=== PATIENT | male | born 1965 | race Caucasian/White ===

== ENCOUNTER 2022-12-17 05:59 | Outpatient (OUT) | payer BC, SELFPAY ==
[2022-12-17 07:08] LABS: Basophils Percent Auto 0.7 % (0.2-2.0); Eosinophils Absolute Auto 0.2 10^3/uL (0.0-0.7); Eosinophils Percent Auto 2.5 % (0.9-7.0); Hematocrit 45.5 % (42.0-54.0); Immature Granulocytes Abs Auto 0.02 10^3/uL (0.00-0.03); Immature Granulocytes Pct Auto 0.3 % (0.0-0.5); Lymphocytes Absolute Auto 2.5 10^3/uL (1.2-3.8); Lymphocytes Percent Auto 41.9 % (20.5-60.0); Mean Platelet Volume 9.8 fL (9.5-13.5); Monocytes Absolute Auto 0.6 10^3/uL (0.3-0.8); Monocytes Percent Auto 9.6 % (1.7-12.0); Neutrophils Absolute Auto 2.7 10^3/uL (1.4-6.5); Platelet Count 276 10^3/uL (150-450); Red Blood Count 5.35 10^6/uL (4.70-6.10); Red Cell Distribution Width 14.4 % (11.0-15.0); White Blood Count 6.1 10^3/uL (4.0-11.0)
[2022-12-17 07:20] LABS: Alanine Aminotransferase 33 U/L (16-63); Albumin Globulin Ratio 1.1; Alkaline Phosphatase 99 U/L (46-116); Anion Gap 11.3; Aspartate Amino Transferase 18 U/L (15-37); BUN Creatinine Ratio 13.2; Bilirubin Total 0.6 mg/dL (0.2-1.0); Calcium 9.4 mg/dL (8.5-10.1); Chloride 105 mmol/L (98-107); Estimated GFR (African America >60 (>=60); Estimated GFR (Non-African Ame 58 (>=60); Globulin 3.5 g/dL; Glucose 110 mg/dL (74-106); Potassium 4.3 mmol/L (3.5-5.1); Sodium 140 mmol/L (136-145); Total Protein 7.5 g/dL (6.4-8.2)
[2022-12-17 07:28] LABS: Chol HDL Ratio 4.2; Cholesterol 173 mg/dL (<=200); HDL Cholesterol 41 mg/dL (40-60); Thyroid Stimulating Hormone 1.913 uIU/mL (0.358-3.740); Triglycerides 227 mg/dL (<=150); VLDL CHOLESTEROL 45.4 mg/dL
== END 2022-12-17 06:00 | disposition home or self-care (01) ==
LOC: LAB 06:03
DX: E78.5 Hyperlipidemia, unspecified (principal); Z12.5 Encounter for screening for malignant neoplasm of prostate
CPT/HCPCS: 36415; 80053; 80061; 84443; 85025; G0103

== ENCOUNTER 2023-01-12 14:15 | Outpatient (OUT) | payer BC, SELFPAY ==
--- NOTE | 2023-01-12 14:26 | ECG_ITS ---
The [facility] Test Date: 2023-01-12 Pat Name: PERCY PARK Department: Room: - Gender: Male [employer]aking [employer] Worker: : 1965 Requested By: RUBY MABRY Order Number: [id number] Reading MD: ANN MARIE PETERS Measurements Intervals [place] Rate: 74 P: 62 HI: 168 QRS: 35 QRSD: 100 T: 48 QT: 367 QTc: 409 Interpretive Statements SINUS RHYTHM No previous ECG available for comparison Electronically Signed On 01-13-2023 7:14:12 EDT by ANN MARIE PETERS
== END 2023-01-12 14:16 | disposition home or self-care (01) ==
DX: Z01.810 Encounter for preprocedural cardiovascular examination (principal); M19.072 Primary osteoarthritis, left ankle and foot; Q66.89 Other specified congenital deformities of feet; I10 Essential (primary) hypertension
CPT/HCPCS: 80048; 93005

== ENCOUNTER 2023-01-29 06:25 | Day surgery (SDC) | payer BC, SELFPAY ==
[2023-01-12 14:58] VITALS: BP 116/80; PULSE 77; RESP 18; TEMP 36.6; O2SAT 97; BMI 35.1
[2023-01-29] VITALS (15 sets, daily range): BP systolic 108–132; BP diastolic 70–90; PULSE 71–94; RESP 8–20; TEMP 35.9–36.2; O2SAT 90–99; BMI 35.1
--- NOTE | 2023-01-29 | XR_ITS ---
The [address] [address] Patient Name: PERCY PARK MRN: [id number] date: 1965 Sex: M Assigned Patient Location: [facility] Current Patient Location: Accession/Order Number: [id number] Exam Date: 01/29/2023 08:40 Report Date: 01/29/2023 12:37 At the request of: RUBY MABRY Procedure: XR ankle LT min 3V PROCEDURE: XR ankle LT min 3V HISTORY: LEFT SUBTALAR JOINT FUSION W/BONE REMOVAL COMPARISON: XR ankle left 07/09/2022 FINDINGS: BONES:Multiple intraoperative spot fluoroscopic images demonstrate talocalcaneal fusion via 3 lag screws. Bone harvesting from anterior distal tibia. SOFT TISSUES:Expected intraoperative findings. EFFUSION:None visible. OTHER: Negative. XR/XR ankle LT min 3V IMPRESSION: 1. Subtalar fusion. Electronically authenticated by: AVI THOMPSON Date: 01/29/2023 12:37
[2023-01-29 06:34] LABS: Basophils Percent Auto 0.6 % (0.2-2.0); Eosinophils Absolute Auto 0.1 10^3/uL (0.0-0.7); Eosinophils Percent Auto 1.7 % (0.9-7.0); Hematocrit 47.5 % (42.0-54.0); Hemoglobin 15.8 g/dL (14.0-18.0); Immature Granulocytes Abs Auto 0.01 10^3/uL (0.00-0.03); Immature Granulocytes Pct Auto 0.1 % (0.0-0.5); Lymphocytes Absolute Auto 2.7 10^3/uL (1.2-3.8); Lymphocytes Percent Auto 38.7 % (20.5-60.0); Mean Corpuscular HGB Conc 33.3 g/dL (29.9-35.2); Mean Corpuscular Hemoglobin 28.1 pg (25.9-34.0); Mean Corpuscular Volume 84.5 fL (80.0-94.0); Mean Platelet Volume 9.5 fL (9.5-13.5); Monocytes Absolute Auto 0.7 10^3/uL (0.3-0.8); Monocytes Percent Auto 9.4 % (1.7-12.0); Neutrophils Absolute Auto 3.4 10^3/uL (1.4-6.5); Neutrophils Percent Auto 49.5 % (43.0-75.0); Platelet Count 288 10^3/uL (150-450); Red Blood Count 5.62 10^6/uL (4.70-6.10); Red Cell Distribution Width 14.2 % (11.0-15.0); White Blood Count 6.9 10^3/uL (4.0-11.0)
[2023-01-29] MEDS: LACTATED RINGER'S SOLUTION 1,000 ML 50 ML IV ×2 (06:56→08:35)
[2023-01-29 06:58] LABS: Glucometer 98 mg/dL (74-106)
[2023-01-29] MEDS: CEFAZOLIN SODIUM/DEXTROSE,ISO 2 GM/50 ML PIGGYBACK IV (07:48)
[2023-01-29] MEDS: THROMBI-GEL SIZE 40 HEMOSTAT 1 EACH TOPICAL (08:48)
--- NOTE | 2023-01-29 10:01 | XR_ITS ---
The [address] [address] Patient Name: PERCY PARK MRN: [id number] date: 1965 Sex: M Assigned Patient Location: [facility] Current Patient Location: [facility] Accession/Order Number: [id number] Exam Date: 01/29/2023 10:40 Report Date: 01/29/2023 12:41 At the request of: SEAMUS WONG Procedure: XR ankle LT min 3V PROCEDURE: XR ankle LT min 3V HISTORY: postop xr pacu. please include calc axial COMPARISON: 01/29/2023 XR ankle left intraoperative images FINDINGS: BONES:Mechanical fusion of the talocalcaneal joint via 3 lag screws; no appreciable hardware fracture or bone fracture. Bone harvesting from distal tibia. SOFT TISSUES:Small amount of soft tissue swelling and subcutaneous air; not unexpected following surgery. Images were obtained to cast material. EFFUSION:None visible. OTHER: Negative. XR/XR ankle LT min 3V IMPRESSION: 1. Talocalcaneal fusion. Stable appearance compared to intraoperative images. Electronically authenticated by: AVI THOMPSON Date: 01/29/2023 12:41
--- NOTE | 2023-01-29 10:09 | PM.ORONB ---
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 Arthrosis and chronic inflammatory tissue noted within the subtalar joint. Middle facet coalition was also noted. Bone quality was within normal limits given patient's gender and age. PROCEDURE IN DETAIL: Patient was identified in pre op and consent was reviewed. Correct side and site were identified and marked. Pre-op antibiotics were started. Patient was brought to OR suite and place on table in a supine position. General anesthesia was administered. Tourniquet applied. Operative extremity was prepped and draped in usual sterile fashion. Formal time-out was performed and the foot/ankle were exsanguinated and tourniquet inflated. A longitudinal incision over the medial aspect of the calf two finger breadths posterior to the posterior aspect of tibia was performed. Combination sharp and blunt dissection with all bleeders being coagulated gained access to the gastrocnemius aponeurosis. Once the aponeurosis was isolated a speculum was inserted from the medial to lateral position just superficial to the aponeurosis. The speculum allowed full visualization of the aponeurosis and the foot was held in maximal dorsiflexed position. A fifteen blade was used to transversely incise the gastrocnemius fascia to two separate location (one proximal and one distal) followed by release of the soleus fascia. 10 degrees of ankle joint dorsiflexion was obtained. The area was flushed with copious sterile saline and skin was closed in layers. A longitudinal incision over the medial aspect of the gastrocnemius aponeurosis was performed. Combination of sharp and blunt dissection with all bleeders being coagulated gained access to the gastrocnemius aponeurosis. Once the aponeurosis was isolated a speculum was inserted from the medial to lateral position just superficial to the aponeurosis. The speculum allowed full visualization of the aponeurosis and the foot was held in maximal dorsiflexed position. A fifteen blade was used to transversely incise the gastrocnemius aponeurosis until ten degrees of ankle joint dorsiflexion was obtained. The area was flushed with copious sterile saline and skin was closed in layers. An incision from fibular malleolus to the cuboid was undertaken. Combination of sharp and blunt dissection gained access to the sinus tarsi. All bleeders were tied off or cauterized. EDB muscle was reflected and tagged for later approximation. Sinus tarsectomy was then performed. Radius Healthermann distractor was used to access the subtalar joint which was prepped with curettes, osteotomes, rongeurs and drill with 2.0 mm drill.The posterior and the middle facet were thoroughly prepped. An accessory incision was placed over the distal tibia. Sharp and blunt dissection down to periosteum was performed. The periosteum was sharply reflected. A drill hole was created to allow access to the metaphysis. A bone harvester was then used according to the agriculture laboratory technician's standard directions to obtain cancellus autograft. 5 cc was obtained and was then mixed with 1 cc of Sparc allograft. The graft mixture was then placed into the subtalar joint. The harvest site was then irrigated and packed with Gelfoam. The periosteum was meticulously reapproximated with absorbable suture and skin was closed with nonabsorbable suture Guidewire was placed through a stab incision over the talar neck and was directed from the talar neck across the subtalar joint and into the calcaneus. Fluoroscopy confirmed proper placement. A 5.5 mm cannulated headless screw was placed accordingly. Two guide wires were placed through a 2 cm incision over posterior heel. The wires were placed from the calcaneal tuberosity into the talar body. Fluoroscopy confirmed deformity correction and proper placement of the wires. once the wires were placed in a good position 6.5 mm headless cannulated screws were placed over each wire. Guidewires were then removed and screw position was evaluated on fluoroscopy. was noted that the 5.5 mm screw was long on the axial x-ray therefore was removed and was replaced with a shorter 6.5 mm screw. Compression was noted across the fusion site. Surgical site was irrigated with copious saline. Incisions were then closed in layers and a tourniquet was dropped with a prompt hyperemic response.A dry sterile dressing consisting of Xeroform on the incisions followed by 4 x 4 gauze, ABDs, and Kerlix were applied. Multiple layers of cast padding were then applied to ensure all bony prominences were well-padded. A plaster posterior splint was then applied which was held in place by Silver wraps. Capillary refill time to all digits was evaluated and had appropriate response. Patient tolerated the procedure and anesthesia well transferred to the recovery room with vital signs stable and brisk capillary refill to digits. POSTOPERATIVE PLAN: Discharge home under family's care Post op instructions provided verbally and written prescription(s) were placed in chart NWB operative foot/ankle x_6_ wks Follow-up in 1 week Implants: Medline 6.5 mm cannulated headless screws x3 Sparc bone allograft Anesthesia: regional and General-LMA Surgeon: Alf York Employment Specialist: Moses Castillo Estimated blood loss (mL): 10 Pathology: none sent Condition: stable Disposition: PACU Preoperative Details Reason for procedure: patient is a 57-year-old male who has had progressive pain in his right foot and difficulty with uneven surfaces. Patient had reduction in frontal plane range of motion of the subtalar joint and pain on palpation the sinus tarsi as well as medial aspect of the subtalar joint. patient also had reduction in ankle joint dorsiflexion with the knee extended. 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 We discussed potential pros and cons of surgical versus nonsurgical treatment and given that the patient had not responded to nonsurgical care he was to proceed with surgical intervention involving subtalar joint fusion, bone graft and gastrocnemius recession
[2023-01-29 10:34] LABS: Glucometer 122 mg/dL (74-106)
== END 2023-01-29 12:00 | disposition home or self-care (01) ==
PROVIDERS: Anesthesiology; Visit Provider Podiatrist Foot & Ankle Surgery
PROC: (CPT 20902; principal; 2023-01-29 07:30)
DX: M19.072 Primary osteoarthritis, left ankle and foot (principal); Q66.89 Other specified congenital deformities of feet; M24.572 Contracture, left ankle; E78.5 Hyperlipidemia, unspecified; I12.9 Hypertensive chronic kidney disease with stage 1 through stage 4 chronic kidney disease, or unspecified chronic kidney disease; N18.30 Chronic kidney disease, stage 3 unspecified; R73.9 Hyperglycemia, unspecified; K21.9 Gastro-esophageal reflux disease without esophagitis; N52.9 Male erectile dysfunction, unspecified; Z79.899 Other long term (current) drug therapy
CPT/HCPCS: 20902; 27687; 28725; 36415; 64445; 73610; 76000; 76942; 82948; 85025; C1713; J2704

== ENCOUNTER 2023-02-17 09:04 | Outpatient (OUT) | payer BC, SELFPAY ==
--- NOTE | 2023-02-17 | XR_ITS ---
The [address] [address] Patient Name: PERCY PARK MRN: [id number] date: 1965 Sex: M Assigned Patient Location: [facility] Current Patient Location: [facility] Accession/Order Number: [id number] Exam Date: 02/17/2023 09:24 Report Date: 02/17/2023 15:03 At the request of: PHIL DEAL Procedure: XR foot LT min 3V EXAM: XR foot LT min 3V HISTORY: LEFT SUBTALAR JOINT FUSION COMPARISON: 01/29/2023. 08/02/2022. TECHNIQUE: 3 views left foot. FINDINGS: Recent postoperative subtalar joint fusion with 3 cannulated screws. In position without complication. Minimal postoperative edema without gas. No bone destruction. No fracture or dislocation. Minimal degenerative change of the great toe MTP joint. XR/XR foot LT min 3V IMPRESSION: Intact left subtalar joint effusion with mild residual edema. Electronically authenticated by: YARIEL BUTLER Date: 02/17/2023 15:03
== END 2023-02-17 09:05 | disposition home or self-care (01) ==
LOC: RAD 09:04
PROVIDERS: Visit Provider Physician Assistant
DX: M24.572 Contracture, left ankle (principal); Q66.89 Other specified congenital deformities of feet
CPT/HCPCS: 73610; 73630

== ENCOUNTER 2023-03-12 09:24 | Outpatient (OUT) | payer BC, SELFPAY ==
--- NOTE | 2023-03-12 | XR_ITS ---
The [address] [address] Patient Name: PERCY PARK MRN: [id number] date: 1965 Sex: M Assigned Patient Location: [facility] Current Patient Location: [facility] Accession/Order Number: [id number] Exam Date: 03/12/2023 09:10 Report Date: 03/12/2023 11:37 At the request of: PHIL DEAL Procedure: XR foot LT min 3V STUDY: XR foot LT min 3V, [id number] HISTORY: LEFT FOOT PAIN COMPARISON: Left foot x-rays 02/17/2023. FINDINGS/IMPRESSION: No acute fracture, dislocation, or suspicious osseous lesion. Subtalar joint fusion hardware is intact and similar alignment on the lateral view. Small plantar calcaneal spur. There is pes cavus. No new or worsening osseous abnormality. Electronically authenticated by: SALVADOR BOONE Date: 03/12/2023 11:37
== END 2023-03-12 09:25 | disposition home or self-care (01) ==
LOC: RAD 09:25
PROVIDERS: Visit Provider Physician Assistant
DX: Q66.89 Other specified congenital deformities of feet (principal); M77.32 Calcaneal spur, left foot; Q66.72 Congenital pes cavus, left foot; Z98.1 Arthrodesis status
CPT/HCPCS: 73630

== ENCOUNTER 2023-04-01 09:05 | Outpatient (OUT) | payer BC, SELFPAY ==
--- NOTE | 2023-04-01 | XR_ITS ---
The [address] [address] Patient Name: PRECY PARK MRN: [id number] date: 1965 Sex: M Assigned Patient Location: [facility] Current Patient Location: Accession/Order Number: [id number] Exam Date: 04/01/2023 09:07 Report Date: 04/02/2023 07:38 At the request of: RUBY MABRY Procedure: XR foot LT min 3V PROCEDURE: XR foot LT min 3V HISTORY: LEFT FOOT PAIN COMPARISON: XR foot left 03/12/2023 FINDINGS: BONES:Subtalar fusion via 3 lag screws; no appreciable hardware fracture loosening. No bone fracture or dislocation. Prior marrow harvesting from distal tibia. SOFT TISSUES:No visible soft tissue swelling. EFFUSION:None visible. OTHER: Negative. XR/XR foot LT min 3V IMPRESSION: 1. Stable surgical changes without evidence of hardware failure or change in alignment. Electronically authenticated by: AVI THOMPSON Date: 04/02/2023 07:38
== END 2023-04-01 09:06 | disposition home or self-care (01) ==
LOC: RAD 09:05
PROVIDERS: Visit Provider Podiatrist Foot & Ankle Surgery
DX: M79.672 Pain in left foot (principal)
CPT/HCPCS: 73630

== ENCOUNTER 2023-04-28 09:16 | Outpatient (OUT) | payer BC, SELFPAY ==
--- NOTE | 2023-04-28 | XR_ITS ---
The [address] [address] Patient Name: PERCY PARK MRN: [id number] date: 1965 Sex: M Assigned Patient Location: [facility] Current Patient Location: [facility] Accession/Order Number: [id number] Exam Date: 04/28/2023 09:30 Report Date: 04/28/2023 16:08 At the request of: RUBY MABRY Procedure: XR foot LT min 3V EXAM: XR foot LT min 3V HISTORY: LEFT FOOT F/U COMPARISON: 04/01/2023. TECHNIQUE: Routine views of the XR foot LT min 3V FINDINGS/ XR/XR foot LT min 3V IMPRESSION: 1. No acute fractures. Fusion of the talocalcaneal joint without definitive osseous bridging. Maintained alignment without evidence for hardware complication. Small plantar calcaneal spur. Osteopenia, which may be secondary to disuse. 2. Unremarkable soft tissues. 3. Mild first MTP and scattered interphalangeal joint degeneration. Electronically authenticated by: CANDE BRIGHT Date: 04/28/2023 16:08
== END 2023-04-28 09:17 | disposition home or self-care (01) ==
LOC: RAD 09:17
PROVIDERS: Visit Provider Podiatrist Foot & Ankle Surgery
DX: Q66.89 Other specified congenital deformities of feet (principal); M77.32 Calcaneal spur, left foot
CPT/HCPCS: 73630

== ENCOUNTER 2023-07-29 15:30 | Outpatient (OUT) | payer BC, SELFPAY ==
--- NOTE | 2023-07-29 | XR_ITS ---
The [address] [address] Patient Name: PERCY PARK MRN: [id number] date: 1965 Sex: M Assigned Patient Location: Current Patient Location: Accession/Order Number: [id number] Exam Date: 07/29/2023 15:32 Report Date: 07/29/2023 18:22 At the request of: RUBY MABRY Procedure: XR foot LT min 3V EXAM: XR foot LT min 3V HISTORY: LEFT FOOT PAIN COMPARISON: 04/28/2023 TECHNIQUE: 3 views of left foot were obtained. FINDINGS: There is no evidence of an acute fracture or dislocation. Some degenerative changes are again seen at the first metatarsophalangeal joint and the interphalangeal joint of the great toe. Remainder the joint space of the foot are intact. Remote postsurgical changes are present with fusion of the talocalcaneus joints. Small osteophytes arise from the posterior calcaneus. XR/XR foot LT min 3V IMPRESSION: No apparent acute fracture or dislocation. Some degenerative changes are seen in the joints of the great toe. The overall appearance is unchanged. Electronically authenticated by: RUBY MONTGOMERY Date: 07/29/2023 18:22
== END 2023-07-29 15:31 | disposition home or self-care (01) ==
PROVIDERS: Visit Provider Podiatrist Foot & Ankle Surgery
DX: Q66.89 Other specified congenital deformities of feet (principal)
CPT/HCPCS: 73630

== ENCOUNTER 2023-12-16 10:04 | Emergency (ER) | payer OTHER, SELFPAY ==
[2023-12-16 10:12] VITALS: BP 127/82; PULSE 77; TEMP 36.4; O2SAT 97; BMI 33.9
--- NOTE | 2023-12-16 10:45 | CT_ITS ---
[address] [address] Patient Name: PERCY PARK MRN: [id number] date: 1965 Sex: M Assigned Patient Location: ER Current Patient Location: ER Accession/Order Number: [id number] Exam Date: 12/16/2023 10:54 Report Date: 12/16/2023 11:28 At the request of: JYOTI PANDYA Procedure: CT cervical spine wo con PROCEDURE: CT thoracic spine wo con, CT cervical spine wo con, CT lumbar spine wo con COMPARISON: None. HISTORY: fall TECHNIQUE: Axial, Coronal, and Sagittal CT images obtained without IV contrast. Dose reduction techniques were achieved by using automated exposure control and/or adjustment of mA and/or kV according to patient size and/or use of iterative reconstruction technique. FINDINGS: PARASPINAL AREA: Normal with no visible mass. DISCS: Moderate narrowing L5-S1 with endplate sclerosis. Mild right L5-S1 foraminal stenosis BONES: Normal alignment of the cervical thoracic and lumbar vertebral bodies. Mild anterior wedging of the T7, T8, T9, T12 and L4 vertebral bodies. Mild degenerative spondylosis and facet osteoarthropathy OTHER: Negative. CT/CT cervical spine wo con IMPRESSION: Mild anterior wedging of the T7, T8, T9, T12 and L4 vertebral bodies, age-indeterminate compression fractures No spondylolisthesis Mild degenerative changes most significant at L5-S1 Electronically authenticated by: LUIZA PELLETIER Date: 12/16/2023 11:28
--- NOTE | 2023-12-16 10:45 | CT_ITS ---
[address] [address] Patient Name: PERCY PARK MRN: [id number] date: 1965 Sex: M Assigned Patient Location: ER Current Patient Location: ER Accession/Order Number: [id number] Exam Date: 12/16/2023 10:54 Report Date: 12/16/2023 11:28 At the request of: JYOTI PANDYA Procedure: CT lumbar spine wo con PROCEDURE: CT thoracic spine wo con, CT cervical spine wo con, CT lumbar spine wo con COMPARISON: None. HISTORY: fall TECHNIQUE: Axial, Coronal, and Sagittal CT images obtained without IV contrast. Dose reduction techniques were achieved by using automated exposure control and/or adjustment of mA and/or kV according to patient size and/or use of iterative reconstruction technique. FINDINGS: PARASPINAL AREA: Normal with no visible mass. DISCS: Moderate narrowing L5-S1 with endplate sclerosis. Mild right L5-S1 foraminal stenosis BONES: Normal alignment of the cervical thoracic and lumbar vertebral bodies. Mild anterior wedging of the T7, T8, T9, T12 and L4 vertebral bodies. Mild degenerative spondylosis and facet osteoarthropathy OTHER: Negative. CT/CT lumbar spine wo con IMPRESSION: Mild anterior wedging of the T7, T8, T9, T12 and L4 vertebral bodies, age-indeterminate compression fractures No spondylolisthesis Mild degenerative changes most significant at L5-S1 Electronically authenticated by: LUIZA PELLETIER Date: 12/16/2023 11:28
--- NOTE | 2023-12-16 10:45 | CT_ITS ---
[address] [address] Patient Name: PERCY PARK MRN: [id number] date: 1965 Sex: M Assigned Patient Location: ER Current Patient Location: ER Accession/Order Number: [id number] Exam Date: 12/16/2023 10:54 Report Date: 12/16/2023 11:28 At the request of: JYOTI PANDYA Procedure: CT thoracic spine wo con PROCEDURE: CT thoracic spine wo con, CT cervical spine wo con, CT lumbar spine wo con COMPARISON: None. HISTORY: fall TECHNIQUE: Axial, Coronal, and Sagittal CT images obtained without IV contrast. Dose reduction techniques were achieved by using automated exposure control and/or adjustment of mA and/or kV according to patient size and/or use of iterative reconstruction technique. FINDINGS: PARASPINAL AREA: Normal with no visible mass. DISCS: Moderate narrowing L5-S1 with endplate sclerosis. Mild right L5-S1 foraminal stenosis BONES: Normal alignment of the cervical thoracic and lumbar vertebral bodies. Mild anterior wedging of the T7, T8, T9, T12 and L4 vertebral bodies. Mild degenerative spondylosis and facet osteoarthropathy OTHER: Negative. CT/CT thoracic spine wo con IMPRESSION: Mild anterior wedging of the T7, T8, T9, T12 and L4 vertebral bodies, age-indeterminate compression fractures No spondylolisthesis Mild degenerative changes most significant at L5-S1 Electronically authenticated by: LUIZA PELLETIER Date: 12/16/2023 11:28
--- NOTE | 2023-12-16 11:06 | PC.NURSE ---
pt back from imaging at this time via wheelchair. pt aware of pending results and denies current needs.
[2023-12-16 12:21] VITALS: PULSE 74; O2SAT 96
--- NOTE | 2023-12-16 12:32 | ED_ITS ---
HPI HPI - Back Pain/Injury General Chief Complaint: Back Pain/Injury Stated Complaint: FALL Time Seen by Provider: 12/16/23 10:15 Source: patient Mode of arrival: walk-in Limitations: no limitations History of Present Illness HPI Narrative: Patient presents to ED complaining of back pain. 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 He complains of thoracic spine pain and lumbar spine pain. Mild lower cervical spine tenderness as well. no loss of consciousness neurologically intact no weakness numbness or tingling in the extremities. He has been ambulatory in the ED and he said his pain is mild. Declined any pain medication at this time. Related Data Home Medications ?Medication ?Instructions ?Recorded ?Confirmed bupropion HCl 200 mg tablet,12 hr 200 mg PO QDAY 01/12/23 01/29/23 sustained-release levocetirizine 5 mg tablet 5 mg PO QDAY 01/12/23 01/12/23 lisinopril 20 mg tablet 20 mg PO QDAY 01/12/23 01/29/23 lorazepam 1 mg tablet 1 mg PO Q12H PRN anxiety 01/12/23 01/12/23 montelukast 10 mg tablet 10 mg PO QPM 01/12/23 01/29/23 pantoprazole 40 mg tablet,delayed 40 mg PO Q12H 01/12/23 01/29/23 release Previous Rx's ?Medication ?Instructions ?Recorded alendronate 70 mg tablet (Fosamax) 70 mg PO QWEEK 12 weeks #12 tabs 01/29/23 aspirin 81 mg tablet,delayed 81 mg PO BID PRN clot prevention 01/29/23 release (Adult Low Dose Aspirin) 30 days #60 tabs cefadroxil 500 mg capsule 500 mg PO BID 2 weeks #28 caps 01/29/23 cholecalciferol (vitamin D3) 125 125 mcg PO DAILY 90 days #90 caps 01/29/23 mcg (5,000 unit) capsule ondansetron 4 mg disintegrating 4 mg PO Q8H PRN nausea and 01/29/23 tablet vomiting 5 days #15 tabs oxycodone-acetaminophen 5 mg-325 1 tab PO Q6H PRN pain (scale score 01/29/23 mg tablet (Percocet) 7-10) 7 days #28 tabs sennosides 8.6 mg tablet (Senna 8.6 mg PO DAILY PRN constipation 7 01/29/23 Laxative) days #7 tabs tizanidine 2 mg capsule 2 mg PO TID PRN muscle spasticity 01/29/23 7 days #21 caps Allergies Allergy/AdvReac Type Severity Reaction Status Date / Time No Known Drug Allergies Allergy Verified 01/12/23 14:37 Opioid HPI Opioid Management Most Recent Opioid Data: Last Pain Scale 7 12/16/23 10:19 Review of Systems ROS0 Status of ROS 10 or more systems reviewed and unremark able except as noted in history and below [facility] Medical History (Updated 12/16/23 @ 12:20 by Shelia Henley DO) Depression ?F32.A - Depression, unspecified (ICD-10) Anxiety ?F41.9 - Anxiety disorder, unspecified (ICD-10) COVID-19 ?U07.1 - COVID-19 (ICD-10) Seasonal allergies ?J30.2 - Other seasonal allergic rhinitis (ICD-10) GERD (gastroesophageal reflux disease) ?K21.9 - Gastro-esophageal reflux disease without esophagitis (ICD-10) Hypertension ?I10 - Essential (primary) hypertension (ICD-10) Equinus contracture of ankle ?M24.573 - Contracture, unspecified ankle (ICD-10) 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 (ICD-10) Arthritis of foot ?M19.079 - Primary osteoarthritis, unspecified ankle and foot (ICD-10) Surgical History (Updated 01/12/23 @ 14:45 by Melisa Rosa NP) History of colonoscopy ?Z98.890 - Other specified postprocedural states (ICD-10) History of tonsillectomy ?Z90.89 - Acquired absence of other organs (ICD-10) Family History (Updated 01/12/23 @ 14:45 by Melisa Rosa NP) Other Family history of hypertension Family history of myocardial infarction Social History (Updated 01/12/23 @ 14:42 by Melisa Rosa NP) Within the past year, how often did you have a drink containing alcohol: monthly or less Smoking status: Never smoker Non-prescribed substance use: denies use 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 Respiratory: Lungs CTA, respirations non labored. 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 Tenderness to palpation in the lower cervical spine, mid thoracic spine and mildly in the lumbar spine. No severe midline tenderness. Neurologically intact, no loss of sensation no paresthesias normal pulses. Neurological: oriented x 4, LOC appropriate for age. Constitutional Vital Signs, click to edit/add: Last Vital Signs Temp 97.6 F 12/16/23 10:12 Pulse 74 12/16/23 12:21 Resp 16 12/16/23 12:21 BP 127/82 12/16/23 10:12 Pulse Ox 96 12/16/23 12:21 O2 Del Method Room Air 12/16/23 12:21 Course Vital Signs Vital signs: Vital Signs Temperature 97.6 F 12/16/23 10:12 Pulse Rate 77 12/16/23 10:12 Respiratory Rate 18 12/16/23 10:12 Blood Pressure 127/82 12/16/23 10:12 Pulse Oximetry 97 12/16/23 10:12 Oxygen Delivery Method Room Air 12/16/23 10:12 Temperature 97.6 F 12/16/23 10:12 Pulse Rate 74 12/16/23 12:21 Respiratory Rate 16 12/16/23 12:21 Blood Pressure 127/82 12/16/23 10:12 Pulse Oximetry 96 12/16/23 12:21 Oxygen Delivery Method Room Air 12/16/23 12:21 MDM - Back Pain/Injury MDM Narrative Medical decision making narrative: Patient's imaging shows thoracic and lumbar compression fractures that are age- indeterminate. 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 If the lumbar pain is significant then place him in a binder. I rechecked the patient and he said the lumbar pain is really not that bad and he has had no problems with the pain is more in the thoracic vertebrae but again still not that bad. Patient wants to return to work today. No neurological deficit. Patient is to follow-up next Thursday with Dr. Saint Clark, his information was given on the discharge instructions. Patient and family are comfortable with care plan for home. No work restrictions. Differential Diagnosis Differential diagnosis: Likely lumbar radiculopathy, strain of lumbar region, thoracic back pain and other (Fracture) Medical Records Attestation: I reviewed the patient's medical records. Imaging Data CT scan - abdomen: Radiologist's impression: ITS Impressions Cervical Spine CT 12/16/23 10:45 IMPRESSION: Mild anterior wedging of the T7, T8, T9, T12 and L4 vertebral bodies, age-indeterminate compression fractures No spondylolisthesis Mild degenerative changes most significant at L5-S1 Electronically authenticated by: LUIZA PELLETIER Date: 12/16/2023 11:[address] 12/16/23 10:45 IMPRESSION: Mild anterior wedging of the T7, T8, T9, T12 and L4 vertebral bodies, age-indeterminate compression fractures No spondylolisthesis Mild degenerative changes most significant at L5-S1 Electronically authenticated by: LUIZA PELLETIER Date: 12/16/2023 11:[address] 12/16/23 10:45 IMPRESSION: Mild anterior wedging of the T7, T8, T9, T12 and L4 vertebral bodies, age-indeterminate compression fractures No spondylolisthesis Mild degenerative changes most significant at L5-S1 Electronically authenticated by: LUIZA PELLETIER Date: 12/16/2023 11:28 Discharge Plan Discharge Stand Alone Forms: Portal Instructions Chief Complaint: Back Pain/Injury Clinical Impression: Compression fracture of thoracic vertebra, Compression fracture of lumbar vertebra Patient Disposition: Home, Self-Care Time of Disposition Decision: 12:19 Condition: Good Mode of Transportation: Private Vehicle Prescriptions / Home Meds: No Action bupropion HCl 200 mg tablet sustained-release 12 hr 200 mg PO QDAY levocetirizine 5 mg tablet 5 mg PO QDAY lorazepam 1 mg tablet 1 mg PO Q12H PRN (Reason: anxiety) montelukast 10 mg tablet 10 mg PO QPM pantoprazole 40 mg tablet,delayed release (DR/EC) 40 mg PO Q12H lisinopril 20 mg tablet 20 mg PO QDAY alendronate [Fosamax] 70 mg tablet 70 mg PO QWEEK 84 Days Qty: 12 0RF aspirin [Adult Low Dose Aspirin] 81 mg tablet,delayed release (DR/EC) 81 mg PO BID PRN (Reason: clot prevention) 30 Days Qty: 60 0RF cefadroxil 500 mg capsule 500 mg PO BID 14 Days Qty: 28 0RF oxycodone-acetaminophen [Percocet] 5-325 mg tablet 1 tab PO Q6H PRN (Reason: pain (scale score 7-10)) 7 Days Qty: 28 0RF ondansetron 4 mg tablet,disintegrating 4 mg PO Q8H PRN (Reason: nausea and vomiting) 5 Days Qty: 15 0RF cholecalciferol (vitamin D3) 125 mcg (5,000 unit) capsule 125 mcg PO DAILY 90 Days Qty: 90 0RF sennosides [Senna Laxative] 8.6 mg tablet 8.6 mg PO DAILY PRN (Reason: constipation) 7 Days Qty: 7 0RF tizanidine 2 mg capsule 2 mg PO TID PRN (Reason: muscle spasticity) 7 Days Qty: 21 0RF Print Language: Indonesian Instructions: Vertebral Compression Fracture (ED) Referrals: Physician,Non-Staff, [Primary Care Provider] - 1 week Nilson Yañez MD [Physician] - 1 week Discharge Date/Time: 12/16/23 12:28
== END 2023-12-16 12:28 | disposition home or self-care (01) ==
PROVIDERS: Emergency Provider Emergency Medicine
DX: S22.060A Wedge compression fracture of T7-T8 vertebra, initial encounter for closed fracture (principal); S22.070A Wedge compression fracture of T9-T10 vertebra, initial encounter for closed fracture; S22.080A Wedge compression fracture of T11-T12 vertebra, initial encounter for closed fracture; S32.040A Wedge compression fracture of fourth lumbar vertebra, initial encounter for closed fracture; W01.10XA Fall on same level from slipping, tripping and stumbling with subsequent striking against unspecified object, initial encounter
CPT/HCPCS: 72125; 72128; 72131; 99284

== ENCOUNTER 2024-02-18 15:32 | Outpatient (OUT) | payer BC, SELFPAY ==
--- NOTE | 2024-02-18 | XR_ITS ---
[address] [address] Patient Name: PERCY PARK MRN: [id number] date: 1965 Sex: M Assigned Patient Location: Current Patient Location: Accession/Order Number: [id number] Exam Date: 02/18/2024 15:44 Report Date: 02/19/2024 11:54 At the request of: RUBY MABRY Procedure: XR foot ROSE MARIE min 3V EXAMINATION: XR foot ROSE MARIE min 3V HISTORY: BILATERAL FOOT PAIN COMPARISON: No relevant comparison available. FINDINGS: RIGHT FINDINGS: BONES: No acute fracture or dislocation. Moderate enthesopathic spurring of the calcaneus at the Achilles and plantar insertions. Linear metallic foreign body identified in the soft tissues between the fourth and fifth metatarsal heads SOFT TISSUES: Negative. No visible soft tissue swelling. OTHER: Negative. LEFT FINDINGS: BONES: Subtalar fusion with 3 screws. Incomplete bony bridging. Moderate enthesopathic spurring of the calcaneus. SOFT TISSUES: Negative. No visible soft tissue swelling. OTHER: Negative. XR/XR foot ROSE MARIE min 3V IMPRESSION: RIGHT CONCLUSION: Mild degenerative changes LEFT CONCLUSION: Subtalar fusion with incomplete bony bridging Electronically authenticated by: LUIZA PELLETIER Date: 02/19/2024 11:54
== END 2024-02-18 15:33 | disposition home or self-care (01) ==
LOC: EC 15:32
PROVIDERS: Visit Provider Podiatrist Foot & Ankle Surgery
DX: M19.072 Primary osteoarthritis, left ankle and foot (principal); M79.671 Pain in right foot; M24.675 Ankylosis, left foot
CPT/HCPCS: 73630

== ENCOUNTER 2024-03-15 06:33 | Outpatient (OUT) | payer BC, SELFPAY ==
--- OUTSIDE RECORDS SUMMARY | 2024-03-15 06:37 | XMS_ITS | CCD ---
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 Role Phone JAMES GRACE~[phone] UNKNOWN Unavailable U navailable JAMES GRACE~[phone] UNKNOWN Unavailable U navailable JAMES GRACE~[phone] UNKNOWN Unavailable U navailable JAMES GRACE~[phone] UNKNOWN Unavailable U navailable JAMES GRACE~[phone] UNKNOWN Unavailable U navailable JAMES GRACE~[phone] UNKNOWN Unavailable U navailable Earl Nicolas Unavailable Unavailable JAMES GRACE~[phone] UNKNOWN Unavailable U navailable James Grace DO Primary Care Provider UnavailJames Arthur Unavailable Lucas Seymour II Unavailable [phone] DO James Grace Primary Care Provider DO James Grace Attending Provider [phone] MD Lucas Seymour II Attending Provider Max France Unavailable [phone] Unavailable Primary Care Provider UnavailDO James Arthur Primary Care Provider MD Max France Attending Provider James Grace Primary Care Unavailable Lucas Seymour II Attending UnavailLucas Avendano II Admitting UnavailJames Arthur Primary Care Unavailable Lucas Seymour II Attending UnavailLucas Avendano II Admitting UnavailJames Arthur Attending Unavailable James Grace Primary Care Unavailable James Grace Admitting Unavailable Max France Admitting Unavailabl e SarahisJames Primary Care Unavailable Max France Attending Unavailabl e HIGHLANDER, RUBY Herrera Admitting Unavailable HIGHLANDER, RUBY Herrera Attending Unavailable RONALD, DR NICE Primary Care Unavailable JAY, DR AVI Santiago Consulting Unavailable HIGHLANDER, RUBY Herrera Consulting Unavailable HIGHLANDER, RUBY Herrera Admitting Unavailable HIGHLANDER, RUBY Herrera Attending Unavailable SARAHIS, DR NICE Primary Care Unavailable HIGHLANDER, RUBY Herrera Admitting Unavailable HIGHLANDER, RUBY Herrera Attending Unavailable KUNS, DR NICE Primary Care Unavailable HIGHLANDER, RUBY Herrera Admitting Unavailable HIGHLANDER, RUBY Herrera Attending Unavailable KUNS, DR NICE Primary Care Unavailable [place], DR LUIZA Klein Consulting Unavailable HIGHLANDER, RUBY Herrera Consulting Unavailable RONALD, DR NICE Admitting Unavailable KUNS, DR NICE Attending Unavailable SARAHIS, DR NICE Primary Care Unavailable KUNS, DR NICE Consulting Unavailable Unavailable Primary Care Provider Unavailabl e HIGHLANDER, RUBY Herrera Referring Unavailable HIGHLANDER, RUBY Herrera Referring Unavailable HIGHLANDER, RUBY Herrera Referring Unavailable HIGHLANDER, RUBY Herrera Referring Unavailable HIGHLANDER, RUBY Herrera Referring Unavailable HIGHLANDER, RUBY Herrera Referring Unavailable HIGHLANDER, RUBY Herrera Referring Unavailable HIGHLANDER, RUBY Herrera Referring Unavailable HIGHLANDER, RUBY Herrera Referring Unavailable HIGHLANDER, RUBY Herrera Referring Unavailable HIGHLANDER, RUBY Herrera Referring Unavailable HIGHLANDER, RUBY Herrera Referring Unavailable HIGHLANDER, RUBY Herrera Referring Unavailable HIGHLANDER, RUBY Herrera Referring Unavailable Medications Current Medications Medication Drug Class(es) Dates Sig (Normalized) Sig (Original) [id number] 200 actuat albuterol 0.09 mg/actuat metered dose inhaler (20 sources) beta2-Adrenergic Agonist Start: 10-09-2020 take 1 puff(s) by inhalation every four hours as needed ProAir HFA 108 (90 Base) MCG/ACT 1 puff as needed Inhalation every 4 hrs October, Active azithromycin 250 mg oral tablet (16 sources) Macrolide Antimicrobial Start: 07-01-2022 Zithromax Z-Pravin 250 MG as directed Orally as directed Jun, Active Start: 05-07-2022 Zithromax Z-Pa k 250 MG as directed Orally Apr, Active Start: 06-14-2021 take 2 tablets by [facility] once daily, then take 1 tablet by mouth once daily Zithromax Z-Pravin 250 MG 2 tablet on the first day, then 1 tablet daily for 4 days Orally as directed Jun, Active Start: 02-22-2021 Zithromax Z-Pa k 250 MG 2 tablet on the first day, then 1 tablet daily for 4 days Orally Once a day for 5 day(s) Feb, Active 12 hr buPROPion hydrochloride 200 mg extended release oral tablet (20 sources) Aminoketone Start: 07-30-2017 take 1 tablet by mouth once daily Wellbutrin SR 200 MG 1 tablet Orally Once a day for 90 days Jul, Active fluticasone propionate 0.05 mg/actuat metered dose nasal spray (20 sources) Corticosteroid Start: 02-28-2019 take 1 spray(s) nasal route once daily Fluticasone Propionate 50 MCG/ACT 1 spray in each nostril Nasally Once a day for 30 day(s) Feb, Active Start: 02-28-2019 take 1 spray(s) nasa l route once daily Fluticasone Propionate 50 MCG/ACT 1 spray in each nostril Nasally Once a day for 30 day(s) Feb, Active levocetirizine dihydrochloride 5 mg oral tablet (20 sources) Histamine-1 Receptor Antagonist Start: 10-10-2021 take 1 tablet by mouth every twenty-four hours Levocetirizine Dihydrochloride 5 MG 1 tablet Orally Once a day for 90 day(s) October, Active levoFLOXacin 500 mg oral tablet (1 source) Quinolone Antimicrobial Start: 06-09-2023 take 1 tablet by mouth every twenty-four hours levoFLOXacin 500 MG 1 tablet Orally Once a day for 14 days Jun, Active lisinopril 20 mg oral tablet (20 sources) Angiotensin Converting Enzyme Inhibitor Start: 07-05-2019 take 1 tablet by mouth every twenty-four hours Lisinopril 20 MG 1 tablet Orally Once a day for 90 days Jun, Active LORazepam 1 mg oral tablet (20 sources) Benzodiazepine Start: 02-04-2022 take 1 tablet by mouth every twenty-four hours Ativan 1 MG 1 tablet at bedtime as needed Orally Once a day Jan, Active Start: 10-09-2020 take 1 tablet by nitin th every twenty-four hours Ativan 1 MG 1 tablet at bedtime as needed Orally Once a day October, Active meloxicam 15 mg oral tablet (16 sources) Nonsteroidal Anti-inflammatory Drug Start: 03-13-2022 take 1 tablet by mouth every twenty-four hours Meloxicam 15 MG 1 tablet Orally Once a day for 30 day(s) Mar, Active methylPREDNISolone 4 mg oral tablet (20 sources) Corticosteroid Start: 05-07-2022 Medrol 4 MG as directed Orally Apr, Active Start: 11-19-2021 Medrol 4 MG as directed Orally Nov, Active Start: 06-14-2021 Medrol 4 MG as directed Orally Jun, Active Start: 02-22-2021 Medrol 4 MG as directed Orally Feb, Active Start: 03-16-2014 SOLU-MEDROL UP TO 40 mg Mar, 1 mL montelukast 10 mg oral tablet (20 sources) Leukotriene Receptor Antagonist Start: 10-10-2021 take 1 tablet by mouth once daily at bedtime Singulair 10 MG 1 tablet Orally QHS for 90 day(s) October, Active naproxen 500 mg oral tablet (1 source) Nonsteroidal Anti-inflammatory Drug Start: 09-24-2020 take 1 tablet by mouth twice daily as needed naproxen 500 MG tablet Take 1 tablet by mouth 2 times daily as needed. 30 tablet 0 09/24/2020 Active ondansetron 4 mg disintegrating oral tablet (20 sources) Serotonin-3 Receptor Antagonist Start: 01-14-2021 take 4 mg by mouth every eight hours Ondansetron Active 4 MG PO Q8H 9 January 13, 2021 11:00pm pantoprazole 40 mg delayed release oral tablet (20 sources) Proton Pump Inhibitor Start: 05-02-2020 take 40 mg by mouth once daily Pantoprazole Active 40 MG PO Daily May 02, 2020 12:00am Start: 10-30-2017 take 1 tablet by nitin th every twelve hours Pantoprazole Sodium 40 MG 1 tablet Orally BID for 90 days October, Active predniSONE 20 mg oral tablet (6 sources) Start: 07-01-2022 predniSONE 20 MG 1 tablet Orally TID for 3 days, BID for 3 days, then Daily for 3 days Jun, Active ProAir HFA 108 (90 Base) MCG/ACT (1 source) Start: 10-09-2020 take 1 puff(s) by inhalation every four hours as needed ProAir HFA 108 (90 Base) MCG/ACT 1 puff as needed Inhalation every 4 hrs October, Active sildenafil 50 mg oral tablet (20 sources) Phosphodiesterase 5 Inhibitor Start: 03-19-2021 take 1 tablet by mouth every twenty-four hours Sildenafil Citrate 50 MG 1 tablet as needed Orally Once a day for 30 days Mar, Active Completed/Discontinued Medications Medication Drug Class(es) Dates Sig (Normalized) Sig (Original) betamethasone 1 mg/ml topical cream (20 sources) Corticosteroid Start: 11-19-2021 Betamethasone Valerate 0.1 % 1 application Externally Once a day Nov, Not-Taking/PRN Start: 11-19-2021 Betamethasone Valerate 0.1 % 1 application Externally Once a day Nov, Not-Taking 2 ml ketorolac tromethamine 30 mg/ml cartridge (20 sources) Nonsteroidal Anti-inflammatory Drug, Cyclooxygenase Inhibitor Start: 09-24-2020 End: 09-24-2020 ketorolac (TORADOL) injection 60 mg Start: 07-19-2013 Toradol per 15 mg Jul, 2 mL Start: 02-02-2013 Toradol per 15 mg Jan, 2ml triamcinolone acetonide 40 mg/ml injectable suspension (12 sources) Corticosteroid Start: 04-08-2022 Kenalog-40 Apr, 120 mg Problems Active Problems Problem Classification Problem Date Documented Da te Episodic/Chronic Allergic reactions (20 sources) Eczema; Translations: [Dermatitis, unspecified] Episodic Anxiety disorders (20 sources) Anxiety; Translations: [Anxiety disorder, unspecified] Onset: 1 Resolved: 2 Chronic Chronic kidney disease (20 sources) Chronic kidney disease stage 3; Translations: [Chronic kidney disease, stage 3 (moderate)] Onset: 2 Resolved: 2 Chronic Chronic ulcer of skin (20 sources) Non-pressure chronic ulcer of skin of other sites limited to breakdown of skin; Translations: [Broken skin] Chronic Conditions associated with dizziness or vertigo (1 source) Lightheadedness; Translations: [Dizziness and giddiness] Episodic Diabetes mellitus without complication (19 sources) Hyperglycemia; Translations: [Hyperglycemia, unspecified] Onset: 2 Resolved: 2 Episodic Diseases of white blood cells (18 sources) Neutropenia; Translations: [Neutropenia, unspecified] Onset: 2 Resolved: 2 Chronic Disorders of lipid metabolism (20 sources) Hyperlipidemia; Translations: [Hyperlipidemia, unspecified] Onset: 2 Resolved: 2 Chronic Esophageal disorders (20 sources) Gastroesophageal reflux disease; Translations: [Gastro-esophageal reflux disease without esophagitis] Onset: 1 Resolved: 2 Chronic Essential hypertension (20 sources) Essential hypertension; Translations: [Essential (primary) hypertension] Onset: 1 Resolved: 2 Chronic Mood disorders (20 sources) Major depressive disorder, single episode, unspecified; Translations: [Depression] Onset: 1 Resolved: 2 Chronic Nausea and vomiting (12 sources) Nausea; Translations: [Nausea] 01-14-2021 Episodic Neoplasms of unspecified nature or uncertain behavior (9 sources) Neoplasm of uncertain behavior of skin; Translations: [Neoplasm of uncertain behavior of skin] Episodic Nonspecific chest pain (20 sources) Chest wall pain; Translations: [Other chest pain] Episodic Osteoarthritis (7 sources) Primary osteoarthritis, left ankle and foot; Translations: [Arthritis of left foot] Onset: 3 Chronic Other bone disease and musculoskeletal deformities (12 sources) Avascular necrosis of bone of hip; Translations: [Idiopathic aseptic necrosis of left femur] Chronic Other bone disease and musculoskeletal deformities (2 sources) 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 Other bone disease and musculoskeletal deformities (8 sources) Avascular necrosis of the head of femur; Translations: [Idiopathic aseptic necrosis of left femur] Chronic Other congenital anomalies (1 source) Other specified congenital deformities of feet; Translations: [OTH SPEC CONGEN DEFORMITIES FEET] Onset: 3 Chronic Other connective tissue disease (2 sources) Trochanteric bursitis, left hip Episodic Other connective tissue disease (8 sources) Pain in left foot; Translations: [Pain in left foot] Episodic Other connective tissue disease (2 sources) Pain in left foot; Translations: [PAIN IN LEFT FOOT] Onset: 3 Episodic Other connective tissue disease (1 source) Calcaneal spur, left foot; Translations: [CALCANEAL SPUR LEFT FOOT] Onset: 3 Episodic Other gastrointestinal disorders (10 sources) Gagging; Translations: [Other specified symptoms and signs involving the digestive system and abdomen] Episodic Other lower respiratory disease (10 sources) Wheezing; Translations: [Wheezing] Episodic Other male genital disorders (20 sources) Male erectile dysfunction, unspecified; Translations: [Erectile dysfunction, unspecified erectile dysfunction type] Onset: 1 Resolved: 1 Chronic Other non-traumatic joint disorders (4 sources) Pain in left hip Onset: 2 Resolved: 2 Episodic Other non-traumatic joint disorders (9 sources) Hip pain; Translations: [Pain in left hip] Episodic Other non-traumatic joint disorders (4 sources) Pain in left ankle and joints of left foot; Translations: [PAIN IN LEFT ANKLE] Onset: 3 Episodic Other nutritional; endocrine; and metabolic disorders (10 sources) Obese class I; Translations: [Obesity, unspecified] Chronic Other nutritional; endocrine; and metabolic disorders (10 sources) Loss of appetite; Translations: [Anorexia] Episodic Other nutritional; endocrine; and metabolic disorders (2 sources) Decrease in appetite; Translations: [Anorexia] 01-14-2021 Episodic Other upper respiratory disease (20 sources) Seasonal allergy; Translations: [Other seasonal allergic rhinitis] Chronic Other upper respiratory disease (1 source) Other seasonal allergic rhinitis Onset: 2 Resolved: 2 Chronic Other upper respiratory infections (10 sources) Acute sinusitis; Translations: [Acute sinusitis, unspecified] Episodic Residual codes; unclassified (2 sources) Other specified postprocedural states; Translations: [Other specified postprocedural states] Onset: 4 Episodic Spondylosis; intervertebral disc disorders; other back problems (20 sources) Low back pain; Translations: [Low back pain] Episodic Unclassified (1 source) Encounter for screening for malignant neoplasm of colon; Translations: [Encounter for screening for malignant neoplasm of colon] Onset: 3 Unclassified (1 source) Pain in left hip; Translations: [Pain in left hip] Onset: 2 Unclassified (1 source) Low back pain, unspecified; Translations: [Low back pain, unspecified] Onset: 2 Past or Other Problems Problem Classification Problem Date Documented Da te Episodic/Chronic Chronic kidney disease (1 source) Chronic kidney disease E Codes: Fall (1 source) Unspecified fall, initial encounter Onset: 10-10-2021 Resolved: 10-10-2021 Episodic Other lower respiratory disease (1 source) Other forms of dyspnea Onset: 02-13-2022 Resolved: 02-13-2022 Episodic Other screening for suspected conditions (not mental disorders or infectious disease) (6 sources) Encounter for screening for malignant neoplasm of prostate; Translations: [Encounter for screening for malignant neoplasm of colon] Onset: 10-10-2021 Resolved: 02-13-2022 Episodic Unclassified (1 source) Acute left-sided low back pain without sciatica M54.50 Onset: 01-27-2022 Resolved: 01-27-2022 Results Test Name Value Interpretation Reference Range Facility A1C HEMOGLOBINon 12-18-2022 HbA1c (Bld) [Mass fraction] 5.4 % [facility] Other HbA1c (Bld) [Mass fraction]o n 12-18-2022 A1C HEMOGLOBIN [facility] Other CT FOOT LT WO CONon 08-04-19 CT FOOT LT WO CON EXAMINATION: CT FOOT LT WO CON HISTORY: Idiopathic osteoarthritis COMPARISON: 07/09/2022 TECHNIQUE: Multi-planar CT images were created without IV contrast. Dose reduction techniques were achieved by using automated exposure control and/or adjustment of mA and/or kV according to patient size and/or use of iterative reconstruction technique. FINDINGS: BONES: No acute fracture or dislocation. Mild enthesopathic spurring of the calcaneus at the Achilles and plantar insertions. Minimal degenerative changes with joint space narrowing and marginal osteophyte formation. SOFT TISSUES: Negative. No visible soft tissue swelling. EFFUSION: None visible. OTHER: Negative. IMPRESSION: Minimal degenerative osteoarthritis Mild enthesopathic spurring of the calcaneus Electronically authenticated by: LUIZA PELLETIER Date: 2022-08-04 06:56 Normal [facility] 07-25-2022 L - -------- Specimen: [id number] Received: 07/25/22 Status: LOBOEaston Triplett Num: [id number] Spec Type: Surgical Subm Dr: Max France MD Tissues: A Esophagus Biopsy (ESOPHAGUS BX) Procedures: HE/2, Gross/Micro L4 -------- Age/ Patient Sex Location Account Attending Physician -------- Silas La/M [id number] Max France MD -------- SPEC NUM: [id number] RECD: 07/25/22 STATUS: TROY TRIPLETT NUM: [id number] GILL: 07/25/22- [facility] DR: Max France MD ENTERED: 07/25/[address]: SPEC TYPE: Surgical DEPT: S ORDERED: HE/2, Gross/Micro L4 ORDERED: HE/2, Gross/Micro L4 Pathological Diagnosis Esophagus, biopsy: - Squamocolumnar and gastric mucosa with active chronic and reflux esophagitis. - Extensive intestinal metaplasia is present, negative for dysplasia or malignancy. Clinical Information Perez's, screening, rule out Perez's Gross Description Received in formalin labeled with the patient's name, number and esophagus are four fragments of soft hanks tissue averaging 0.3 cm. Entirely submitted in one cassette labeled A1. Microscopic Description Two glass slides with H E stained material have been examined. The microscopic findings support the above pathologic diagnosis. CPT Codes 98052 -------- -------- Specimen: [id number] Received: 07/25/22 Status: TROY Triplett Num: [id number] Spec Type: Surgical Subm Dr: Max France MD Tissues: A Esophagus Biopsy (ESOPHAGUS BX) Procedures: HE/2, Gross/Micro L4 -------- Patient: Silas La [id number] (Continued) -------- Signed (signature on file) Shaista Rodríguez MD 07/28/22 1617 [facility] MR hip LT wo conon MR hip LT wo con [facility] [place] [address] MRI Report Signed Patient: Silas La MR#: [id number] 2 : 1965 Acct:[id number] Age/Sex: 56 / M ADM Date: 03/21/22 Loc: [facility] Room: Type: [facility] Attending Dr: Lucas Seymour II, MD Copies to: Lucas Seymour MD Ordering Provider: Lucas Seymour MD Date of Service: 03/21/22 MR/MR hip LT wo con: Left hip pain MRI LEFT hip without contrast TECHNIQUE: Multiplanar T1 and T2-weighted imaging of the LEFT hip routine without contrast. HISTORY: LEFT hip pain laterally. 2 months duration. Worsening. COMPARISON: Plain film imaging 03/13/22 No bony abnormality of the LEFT femoral head identified. Small focal region of low T1 and heterogeneous low T2 signal intensity of the subarticular region of the femoral head is consistent with small focal region of avascular necrosis. No articular collapse identified. No synovial joint effusion. No bone marrow edema identified. Normal signal intensity of the musculature identified. Intrapelvic structures unremarkable. No subcutaneous abnormality. 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 No articular collapse. Impression dictated by: Skip Lerma M.D.03/21/2022 7:56 PM Dictation Location: [place] [address] Transcribed By: [facility] 03/21/221955 Dictated By: Skip Lerma DO 03/21/221948 Signed By: 03/21/221955 [facility] XR hip LT min 2V(w/wo pelvis )*on 03-13-2022 XR hip LT min 2V(w/wo pelvis)* [facility] Main [address] [address] XRay Report Signed Patient: Silas La MR#: [id number] 2 : 1965 Acct:[id number] Age/Sex: 56 / M ADM Date: 03/13/22 Loc: [facility] Room: Type: [facility] Attending Dr: Lucas Seymour II, MD Copies to: Lucas Seymour MD Ordering Provider: Lucas Seymour MD Date of Service: 03/13/22 XR/XR hip LT min 2V(w/wo pelvis)*: Left hip pain XR hip LT min 2V(w/wo pelvis)* 03/13/2022 3:16 PM SIGNS AND SYMPTOMS: Left hip pain laterally PROTOCOL: Frontal radiograph of the pelvis with crosstable lateral view of the left hip COMPARISON: 01/27/2022 FINDINGS: There is minimal loss of the joint spaces of the hips. There is no fracture or dislocation. The bony ring of the pelvis is grossly intact. XR/XR hip LT min 2V(w/wo pelvis)* IMPRESSION: No fracture or dislocation. Minimal degenerative changes are noted in the hips, similar to the prior study. Impression dictated by: Zion Burden M.D.03/13/2022 4:41 PM Dictation Location: [place] [address] Transcribed By: [facility] 03/13/221640 Dictated By: Zion Burden II, MD 03/13/221640 Signed By: 03/13/221640 [facility] A1C HEMOGLOBINon 02-13-2022 HbA1c (Bld) [Mass fraction] 5.5 % [employer] Other HbA1c (Bld) [Mass fraction]o n 02-13-2022 A1C HEMOGLOBIN [facility] Other XR hip LT min 2V(w/wo pelvis )*on 01-27-2022 XR hip LT min 2V(w/wo pelvis)* [facility] Main [address] [address] XRay Report Signed Patient: Silas La MR#: [id number] 2 : 1965 Acct:[id number] Age/Sex: 56 / M ADM Date: 01/27/22 Loc: XD Room: Type: REG CLI Attending Dr: James Grace DO Copies to: James Grace DO Ordering Provider: James Grace DO Date of Service: 01/27/22 XR/XR hip LT min 2V(w/wo pelvis)*: Left hip pain;Acute left-sided low back pain without sciatic 2 views LEFT hip plain film COMPARISON:None HISTORY:LEFT hip pain No fracture, dislocation or focal soft tissue abnormality seen.No significant degeneration. Articular surfaces preserved. Focal sclerosis of the humeral head present. This may represent bony infarction. XR/XR hip LT min 2V(w/wo pelvis)* IMPRESSION:No acute bony findings. 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 Impression dictated by: Skip Lerma M.D.01/27/2022 9:32 PM Dictation Location: [place] [address] Transcribed By: [facility] 01/27/222131 Dictated By: Skip Lerma DO 01/27/222130 Signed By: 01/27/222131 Normal [facility] XR lumbar spine min 4V*on XR lumbar spine min 4V* [facility] Main [address] [address] XRay Report Signed Patient: Silas La MR#: [id number] 2 : 1965 Acct:[id number] Age/Sex: 56 / M ADM Date: 01/27/22 Loc: XD Room: Type: REG CLI Attending Dr: James Grace DO Copies to: James Grace DO Ordering Provider: James Grace DO Date of Service: 01/27/22 XR/XR lumbar spine min 4V*: Left hip pain;Acute left-sided low back pain without sciatic 6 views of the lumbar spine HISTORY: LEFT lateral posterior hip pain for 4 days. COMPARISON:None There is straightening of the lumbar lordosis. No acute lumbar spine fracture is identified. Mild degenerative listhesis identified. Advanced L5-S1 spondylosis present. Lower lumbar hypertrophic facet changes present. Chronic endplate deformities seen. Mild anterior wedge compression deformity of L4 vertebral body is remote. No paraspinal abnormality seen. SI joints are maintained. XR/XR lumbar spine min 4V* IMPRESSION: Degenerative and chronic changes. No acute bony findings. Impression dictated by: Skip Lerma M.D.01/27/2022 9:35 PM Dictation Location: [place] [address] Transcribed By: [facility] 01/27/222134 Dictated By: Skip Lerma DO 01/27/222132 Signed By: 01/27/222134 [facility] CBC AUTO DIFFon 12-16-2021 BASO # 0.0 103/ul Normal 0[facility]0-0.1 [facility] Comment on above: Performed By: #### C BC #### [facility] [address] [place] [address] Dr. Emmie Esquivel Basophils/100 WBC (Bld) 0.5 % Normal 0.2-2.0 [facility] Comment on above: Performed By: #### C BC #### [facility] [address] [place] [address] Dr. Emmie Esquivel EO # 0.3 103/ul Normal 0.0-0.7 [facility] Comment on above: Performed By: #### C BC #### [facility] [address] [place] [address] [address] Emmie Esquivel Eosinophils/100 WBC (Bld) 5.1 % Normal 0.9-7.0 [facility] Comment on above: Performed By: #### C BC #### [facility] [address] [place] [address] Dr. Emmie Esquivel Erythrocyte distribution width (RBC) [Ratio] 14.2 % Normal 11.0-15.0 [facility] Comment on above: Performed By: #### C BC #### [facility] [address] [place] [address] Dr. Emmie Esquivel Hematocrit (Bld) [Volume fraction] 42.2 % Normal 42.0-54.0 [facility] Comment on above: Performed By: #### C BC #### [facility] [address] [place], [place] [address] Dr. Emmie Esquivel Hemoglobin (Bld) [Mass/Vol] 14.0 g/dL Normal 14.0-18.0 [facility] Comment on above: Performed By: #### C BC #### [facility] [address] [place] [address] Dr. Emmie Esquivel IG # 0.01 10e3/ul Normal 0.00-0.03 [facility] Comment on above: Performed By: #### C BC #### [facility] [address] [place] [address] Dr. Emmie Esquivel IG % 0.2 % Normal 0.0-0.5 [facility] Comment on above: Performed By: #### C BC #### [facility] [address] [place] [address] Dr. Emmie Esquivel LYMPH # 2.5 103/ul Normal 1.2-3.8 [facility] Comment on above: Performed By: #### C BC #### [facility] [address] [place] [address] Dr. Emmie Esquivel Lymphocytes/100 WBC (Bld) 43.1 % Normal 20.5-60.0 [facility] Comment on above: Performed By: #### C BC #### [facility] [address] [place] [address] Dr. Emmie Esquivel MANUAL DIFF REQ NO Normal [facility] Comment on above: Performed By: #### C BC #### [facility] [address] [place] [address] Dr. Emmie Esquivel MCH (RBC) [Entitic mass] 28.6 pg Normal 25.9-34.0 [facility] Comment on above: Performed By: #### C BC #### [facility] [address] [address] [address] Emmie Esquivel MCHC (RBC) [Mass/Vol] 33.2 g/dL Normal 29.9-35.2 [facility] Comment on above: Performed By: #### C BC #### [facility] [address] [address] [address] Emmie Esquivel MCV (RBC) [Entitic vol] 86.3 fL Normal 80.0-94.0 [facility] Comment on above: Performed By: #### C BC #### [facility] [address] [address] [address] Emmie Esquivel MONO # 0.6 103/ul Normal 0.3-0.8 [facility] Comment on above: Performed By: #### C BC #### [facility] [address] [place] [address] Dr. Emmie Esquivel Monocytes/100 WBC (Bld) 9.9 % Normal 1.7-12.0 [facility] Comment on above: Performed By: #### C BC #### [facility] [address] [place] [address] Dr. Emmie Esquivel NEUT # 2.3 103/ul Normal 1.4-6.5 [facility] Comment on above: Performed By: #### C BC #### [facility] [address] [place] [address] Dr. Emmie Esquivel Neutrophils/100 WBC (Bld) 41.2 % Critically low 43.0-75.0 [facility] Comment on above: Performed By: #### C BC #### [facility] [address] [place] [address] Dr. Emmie Esquivel Platelet mean volume (Bld) [Entitic vol] 9.4 fL Critically low 9.5-13.5 [facility] Comment on above: Performed By: #### C BC #### [facility] [address] [place] [address] Dr. Emmie Esquivel PLT 262 103/ul Normal 150-450 [facility] Comment on above: Performed By: #### C BC #### [facility] [address] [address] [address] Emmie Esquivel RBC 4.89 106/ul Normal 4.70-6.10 [facility] Comment on above: Performed By: #### C BC #### [facility] [address] [address] [address] Emmie Esquivel WBC 5.7 103/ul Normal 4.0-11.0 [facility] Comment on above: Performed By: #### C BC #### [facility] [address] [address] [address] Emmie Esquivel LIPID PROFILEon 12-16-2021 CHOL-HDL RATIO NORM SEE BELOW Normal [facility] Comment on above: Result Comment: 3.3 - 4.4 LOW RISK 4.4 - 7.1 AVERAGE RISK 7.1 - 11.0 MODERATE RISK >11.0 HIGH RISK Performed By: #### L IPID, TSH, CMP #### [facility] [address] [address] [address] Emmie Esquivel Cholesterol [Mass/Vol] 170 mg/dL Normal <=200 [facility] Comment on above: Performed By: #### L IPID, TSH, CMP #### [facility] [address] [address] [address] Emmie Esquivel Cholesterol in HDL [Mass/Vol] 34 mg/dL Critically low 40-60 [facility] Comment on above: Performed By: #### L IPID, TSH, CMP #### [facility] [address] [address] [address] Emmie Esquivel Cholesterol in LDL [Mass/Vol] 87.0 mg/dL Normal [facility] Comment on above: Performed By: #### L IPID, TSH, CMP #### [facility] [address] [address] [address] Emmie Esquivel Cholesterol.total/Josi sterol in HDL [Mass ratio] 5.0 {ratio} Normal [facility] Comment on above: Performed By: #### L IPID, TSH, CMP #### [facility] [address] [address] [address] Emmie Esquivel HDL NORMAL > or = 60 mg/dl - LO W CARDIOVASCULAR RISK <40 mg/dl - HIGH CARDIOVASCULAR RISK Normal [facility] Comment on above: Performed By: #### L IPID, TSH, CMP #### [facility] [address] [address] [address] Emmie Esquivel LDL CALC NORMAL SEE BELOW Normal [facility] Comment on above: Result Comment: <100 mg/dl OPTIMAL 100 - 129 mg/dl NEAR OR ABOVE OPTIMAL 130 - 159 mg/dl BORDERLINE HIGH 160 - 189 mg/dl HIGH >190 mg/dl VERY HIGH Performed By: #### L IPID, TSH, CMP #### [facility] [address] [address] [address] Emmie Esquivel Triglyceride [Mass/Vol] 245 mg/dL Critically high <=150 [facility] Comment on above: Performed By: #### L IPID, TSH, CMP #### [facility] [address] [address] [address] Emmie Esquivel VLDL CALC 49.0 mg/dL Normal [facility] Comment on above: Performed By: #### L IPID, TSH, CMP #### [facility] [address] [address] [address] Emmie Esquivel PROF 14(COMP METB)on 022 Albumin [Mass/Vol] 3.5 g/dL Normal 3.4-5.0 [facility] Comment on above: Performed By: #### L IPID, TSH, CMP #### [facility] [address] [address] [address] Emmie Esquivel Albumin/Globulin [Mass ratio] 1.0 {ratio} Normal [facility] Comment on above: Performed By: #### L IPID, TSH, CMP #### [facility] [address] [address] [address] Emmie Esquivel ALP [Catalytic activity/Vol] 92 U/L Normal 46-116 [facility] Comment on above: Performed By: #### L IPID, TSH, CMP #### [facility] [address] [address] [address] Emmie Esquivel ALT [Catalytic activity/Vol] 46 U/L Normal 16-63 [facility] Comment on above: Performed By: #### L IPID, TSH, CMP #### [facility] [address] [address] [address] Emmie Esquivel Anion gap [Moles/Vol] 12.5 mmol/L Normal [facility] Comment on above: Performed By: #### L IPID, TSH, CMP #### [facility] [address] [place] [address] Dr. Emmie Esquivel AST [Catalytic activity/Vol] 21 U/L Normal 15-37 [facility] Comment on above: Performed By: #### L IPID, TSH, CMP #### [facility] [address] [place] [address] Dr. Emmie Esquivel Bilirubin [Mass/Vol] 0.5 mg/dL Normal 0.2-1.0 [facility] Comment on above: Performed By: #### L IPID, TSH, CMP #### [facility] [address] [place] [address] Dr. Emmie Esquivel Calcium [Mass/Vol] 9.0 mg/dL Normal 8.5-10.1 [facility] Comment on above: Performed By: #### L IPID, TSH, CMP #### [facility] [address] [place] [address] Dr. Emmie Esquivel Chloride [Moles/Vol] 106 mmol/L Normal 98-107 [facility] Comment on above: Performed By: #### L IPID, TSH, CMP #### [facility] [address] [place] [address] Dr. Emmie Esquivel CO2 [Moles/Vol] 25.4 mmol/L Normal 21.0-32.0 [facility] Comment on above: Performed By: #### L IPID, TSH, CMP #### [facility] [address] [place] [address] Dr. Emmie Esquivel Creatinine [Mass/Vol] 1.39 mg/dL Critically high 0.70-1.30 [facility] Comment on above: Performed By: #### L IPID, TSH, CMP #### [facility] [address] [address] [address] Emmie Esquivel EGFR-AF CAMEROONIAN >60 Normal >=60 [facility] Comment on above: Performed By: #### L IPID, TSH, CMP #### [facility] [address] [address] [address] Emmie Esquivel EGFR-NON AF CAMEROONIAN 53 mL/min/1.73m2 Critically low >=60 [facility] Comment on above: Performed By: #### L IPID, TSH, CMP #### [facility] [address] [address] [address] Emmie Esquivel Globulin (S) [Mass/Vol] 3.5 g/dL Normal [facility] Comment on above: Performed By: #### L IPID, TSH, CMP #### [facility] [address] [address] [address] Emmie Esquivel Glucose [Mass/Vol] 109 mg/dL Critically high 74-106 [facility] Comment on above: Performed By: #### L IPID, TSH, CMP #### [facility] [address] [address] [address] Emmie Esquivel Potassium [Moles/Vol] 3.9 mmol/L Normal 3.5-5.1 [facility] Comment on above: Performed By: #### L IPID, TSH, CMP #### [facility] [address] [place] [address] Dr. Emmie Esquivel Protein [Mass/Vol] 7.0 g/dL Normal 6.4-8.2 [facility] Comment on above: Performed By: #### L IPID, TSH, CMP #### [facility] [address] [address] [address] Emmie Esquivel Sodium [Moles/Vol] 140 mmol/L Normal 136-145 [facility] Comment on above: Performed By: #### L IPID, TSH, CMP #### [facility] [address] [address] [address] Emmie Esquivel Urea nitrogen [Mass/Vol] 21.0 mg/dL Critically high 7.0-18.0 [facility] Comment on above: Performed By: #### L IPID, TSH, CMP #### [facility] [address] [address] [address] Emmie Esquivel Urea nitrogen/Creatinine [Mass ratio] 15.1 mg/mg Normal [facility] Comment on above: Performed By: #### L IPID, TSH, CMP #### [facility] [address] [address] [address] Emmie Esquivel TSHon 12-16-2021 TSH 2.276 uIU/mL Normal 0.358-3.740 [facility] Comment on above: Performed By: #### L IPID, TSH, CMP #### [facility] [address] [address] [address] Emmie Esquivel ARTERIAL BLOOD GASon 021 SAMANTHA'S TEST Positive Normal [facility] Comment on above: Performed By: #### P ABGA #### [place] [address] BASE DEFICIT 2.1 mEq/L High 0-2 [facility] Comment on above: Performed By: #### P ABGA #### [place] [address] cHCO3 (P,ST)C 21.8 mEq/L Low 22-26 [facility] Comment on above: Performed By: #### P ABGA #### [place] [address] ctCO2 (B)c 18.8 Vol% Normal [facility] Comment on above: Performed By: #### P ABGA #### [place] [address] ctHb 15.3 g/dl Normal [facility] Comment on above: Performed By: #### P ABGA #### [place] [address] FCOHb 1.2 % Normal [facility] Comment on above: Performed By: #### P ABGA #### Testing performed at [address] [address] FMetHb 0.5 % [facility] Comment on above: Performed By: #### P ABGA #### Testing [place] [address] FO2Hb 95.3 % Normal [facility] Comment on above: Performed By: #### P ABGA #### Testing [place] [address] NOTES: 0923 TECH 220 Normal [facility] Comment on above: Result Comment: Test ing performed at [address] [address] Performed By: #### P ABGA #### Testing [place] [address] PATIENT DIAGNOSIS SOB Normal [facility] Comment on above: Performed By: #### P ABGA #### [place] [address] PATIENT O2 SETTINGS ROOM AIR [facility] Comment on above: Performed By: #### P ABGA #### Testing [place] [address] pCO2, arterial 36.6 mmHg Normal 35-45 [facility] Comment on above: Performed By: #### P ABGA #### Testing [place] [address] pH, arterial 7.390 Normal 7.35-7.45 [facility] Comment on above: Performed By: #### P ABGA #### Testing [place] [address] pO2,arterial 83.0 mmHg Normal 80-100 [facility] Comment on above: Performed By: #### P ABGA #### [place] [address] SAMPLE SITE RIGHT RADIAL [facility] Comment on above: Performed By: #### P ABGA #### Testing [place] [address] sO2,arterial 97.0 % Normal 95-100 [facility] Comment on above: Performed By: #### P ABGA #### Testing performed at [facility] [address] [place] [address] B TYPE NATRIURETIC PEPTIDEon 09-24-2020 Natriuretic peptide B (Bld) [Mass/Vol] 10 pg/mL Normal 0-100 [facility] Comment on above: Result Comment: Test ing performed at [address] [address] Performed By: #### C MPF, BNP, ACBC #### Testing performed at [facility] [address] [place] [address] B-TYPE NATRIURETIC PEPTIDE ( BRAIN)Ordered By: Jorge Ruiz on 09-24-2020 Natriuretic peptide B (Bld) [Mass/Vol] 10 pg/mL 0 - 100 pg/mL [facility] Comment on above: Testing performed at [address] BLOOD GAS, ARTERIALOrdered B y: Jorge Ruiz on 09-24-2020 Arterial patency Wrist artery --pre arterial puncture Positive [facility] deficit (BldV) [Moles/Vol] 2.1 High [facility] Carbon dioxide/Gas.total.at end expiration in Exhaled gas 18.8 Vol% [facility] Carboxyhemoglobin (Bld) [Mass fraction] 1.2 % [facility] CO2 (Bld) [Partial pressure] 36.6 mm[Hg] [employer] [facility] System Diagnosis Narrative SOB [facility] HCO3 (Bld) [Moles/Vol] 21.8 mmol/L Low A ignacio [employer] Hemoglobin (Bld) [Mass/Vol] 15.3 g/dL [facility] Interpretation and review of laboratory results Abnormal [facility] Methemoglobin (BldC) [Mass fraction] 0.5 % [facility] NOTE 0923 TECH 220 [facility] [employer] [facility] Comment on above: Testing performed at [address] [address] Oxygen (Bld) [Partial pressure] ROOM AIR [facility] Oxygen (Bld) [Partial pressure] 83.0 mm[Hg] [facility] Oxyhemoglobin (Bld) [Mass fraction] 95.3 % [facility] pH (Bld) 7.390 [pH] [facility] Specimen site Narrative RIGHT RADIAL [facility] CBCon 09-24-2020 ABSOLUTE BAS 0.1 10*3/uL Normal 0.0-0.2 [facility] Comment on above: Result Comment: Test ing performed at [address] [address] Performed By: #### C MPF, BNP, ACBC #### Testing [place] [address] ABSOLUTE EOS 0.10 10*3/uL Normal 0.0-0.7 [facility] Comment on above: Performed By: #### C MPF, BNP, ACBC #### Testing [place] [address] ABSOLUTE NEUTROPHIL COUNT 4.5 10*3/uL Normal 1.4-6.5 [facility] Comment on above: Performed By: #### C MPF, BNP, ACBC #### Testing [place] [address] Basophils/100 WBC (Bld) 0.8 % Normal 0.0-2.0 [facility] Comment on above: Performed By: #### C MPF, BNP, ACBC #### Testing [place] [address] DTYPE AUTO DIFF Normal [facility] Comment on above: Performed By: #### C MPF, BNP, ACBC #### Testing [place] [address] Eosinophils/100 WBC (Bld) 0.8 % Normal 0.0-11.0 [facility] Comment on above: Performed By: #### C MPF, BNP, ACBC #### [place] [address] Lymphocytes (Bld) [#/Vol] 1.70 10*3/uL Normal 1.2-3.4 [facility] Comment on above: Performed By: #### C MPF, BNP, ACBC #### Testing [place] [address] Lymphocytes/100 WBC (Bld) 25.8 % Normal 20.0-55.0 [facility] Comment on above: Performed By: #### C MPF, BNP, ACBC #### Testing performed at [address] [address] Monocytes (Bld) [#/Vol] 0.4 10*3/uL Normal 0.0-0.7 [facility] Comment on above: Performed By: #### C MPF, BNP, ACBC #### Testing performed at [address] [address] Monocytes/100 WBC (Bld) 5.8 % Normal 0.0-10.0 [facility] Comment on above: Performed By: #### C MPF, BNP, ACBC #### Testing performed at [address] [address] Neutrophils/100 WBC (Bld) 66.8 % Normal 37.0-75.0 [facility] Comment on above: Performed By: #### C MPF, BNP, ACBC #### Testing performed at [address] [address] Erythrocyte distribution width (RBC) [Ratio] 13.2 % Normal 11.5-14.5 [facility] Comment on above: Performed By: #### C MPF, BNP, ACBC #### Testing performed at [address] [address] Hematocrit (Bld) [Volume fraction] 43.5 % Normal 42.0-52.0 [facility] Comment on above: Performed By: #### C MPF, BNP, ACBC #### Testing performed at [address] [address] Hemoglobin (Bld) [Mass/Vol] 15.0 g/dL Normal 14.0-18.0 [facility] Comment on above: Performed By: #### C MPF, BNP, ACBC #### Testing performed at [address] [address] MCH (RBC) [Entitic mass] 29.6 pg Normal 26.0-35.0 [facility] Comment on above: Performed By: #### C MPF, BNP, ACBC #### [place] [address] MCHC (RBC) [Mass/Vol] 34.4 g/dL Normal 27.0-37.0 [facility] Comment on above: Performed By: #### C MPF, BNP, ACBC #### [place] [address] MCV (RBC) [Entitic vol] 86.2 fL Normal 80.0-100.0 [facility] Comment on above: Performed By: #### C MPF, BNP, ACBC #### [place] [address] Platelet mean volume (Bld) [Entitic vol] 7.9 fL Normal 7.4-11.0 [facility] Comment on above: Result Comment: Test ing performed at [address] [address] Performed By: #### C MPF, BNP, ACBC #### [place] [address] Platelets (Bld) [#/Vol] 288 10*3/uL Normal 130.0-400.0 [facility] Comment on above: Performed By: #### C MPF, BNP, ACBC #### [place] [address] RBC (Bld) [#/Vol] 5.05 10*6/uL Normal 4.0-6.1 [facility] Comment on above: Performed By: #### C MPF, BNP, ACBC #### [place] [address] WBC (Bld) [#/Vol] 6.7 10*3/uL Normal 3.6-11.0 [facility] Comment on above: Performed By: #### C MPF, BNP, ACBC #### Testing [place] [address] CBC, EDIF, PLATELETOrdered B y: Jorge Ruiz on 09-24-2020 ABSOLUTE BASOPHIL COUNT 0.1 10*3/uL 0.0 - 0.2 10*3/uL [facility] Comment on above: Testing performed at [facility], [place], [place] [address] Basophils/100 WBC (Bld) 0.8 % 0.0 - 2.0 % [facility] Differential cell count method Nom (Bld) AUTO DIFF % [facility] Eosinophils (Bld) [#/Vol] 0.10 10*3/uL 0.0 - 0.7 10*3/uL [facility] Eosinophils/100 WBC (Bld) 0.8 % 0.0 - 11.0 % [facility] Erythrocyte distribution width (RBC) [Ratio] 13.2 % 11.5 - 14.5 % [facility] Hematocrit (Bld) [Volume fraction] 43.5 % 42.0 - 52.0 % [facility] Hemoglobin (Bld) [Mass/Vol] 15.0 g/dL [facility] Lymphocytes (Bld) [#/Vol] 1.70 10*3/uL 1.2 - 3.4 10*3/uL [facility] Lymphocytes/100 WBC (Bld) 25.8 % 20.0 - 55.0 % [facility] MCH (RBC) [Entitic mass] 29.6 pg 26.0 - 35.0 PG [facility] MCHC (RBC) [Mass/Vol] 34.4 g/dL [facility] MCV (RBC) [Entitic vol] 86.2 fL A [facility] Monocytes (Bld) [#/Vol] 0.4 10*3/uL 0.0 - 0.7 10*3/uL [facility] Monocytes/100 WBC (Bld) 5.8 % 0.0 - 10.0 % [facility] Neutrophils (Bld) [#/Vol] 4.5 10*3/uL 1.4 - 6.5 10*3/uL [facility] Neutrophils/100 WBC (Bld) 66.8 % 37.0 - 75.0 % [facility] Platelet mean volume (Bld) [Entitic vol] 7.9 fL [facility] Platelets (Bld) [#/Vol] 288 10*3/uL 130. 0 - 400.0 10*3/uL [facility] RBC (Bld) [#/Vol] 5.05 10*6/uL 4.0 - 6.1 10*6/uL [facility] WBC (Bld) [#/Vol] 6.7 10*3/uL 3.6 - 11.0 10*3/uL [facility] CMP FASTINGon 09-24-2020 A:G RATIO 1.4 RATIO Normal 1.3-2.2 [facility] Comment on above: Performed By: #### C MPF, BNP, ACBC #### Testing performed at [address] [address] ALBUMIN 4.3 G/dl Normal 3.5-5.0 [facility] Comment on above: Performed By: #### C MPF, BNP, ACBC #### Testing performed at [address] [address] ALP [Catalytic activity/Vol] 106 U/L Normal 38-126 [facility] Comment on above: Performed By: #### C MPF, BNP, ACBC #### Testing performed at [address] [address] ALT [Catalytic activity/Vol] 30 U/L Normal <50 [facility] Comment on above: Performed By: #### C MPF, BNP, ACBC #### Testing performed at [address] [address] AST [Catalytic activity/Vol] 30 U/L Normal 17-59 [facility] Comment on above: Performed By: #### C MPF, BNP, ACBC #### Testing performed at [address] [address] Bilirubin [Mass/Vol] 0.3 mg/dL Normal 0.2-1.3 [facility] Comment on above: Performed By: #### C MPF, BNP, ACBC #### Testing performed at [address] [address] Calcium [Mass/Vol] 9.7 mg/dL Normal 8.4-10.2 [facility] Comment on above: Performed By: #### C MPF, BNP, ACBC #### [place] [address] Chloride [Moles/Vol] 102 mmol/L Normal 98-107 [facility] Comment on above: Result Comment: Dyllan fuentes note: Triglyceride levels of 600mg/dL or higher may positively bias chloride results by approximately 2.1 mmol Performed By: #### C MPF, BNP, ACBC #### [place] [address] CO2 [Moles/Vol] 23 mmol/L Normal 22-30 [facility] Comment on above: Performed By: #### C MPF, BNP, ACBC #### [place] [address] Creatinine [Mass/Vol] 1.10 mg/dL Normal 0.7-1.2 [facility] Comment on above: Performed By: #### C MPF, BNP, ACBC #### [place] [address] EST. GFR, >60 Normal [facility] Comment on above: Performed By: #### C MPF, BNP, ACBC #### [place] [address] EST. GFR,Non >60 Normal [facility] Comment on above: Performed By: #### C MPF, BNP, ACBC #### [place] [address] GFR Information Average GFR for 50-5 9 years old = 93. Normal [facility] Comment on above: Result Comment: Research [employer] Development Engineer brent Kidney disease, GFR = <60. Kidney failure, GFR = <15. The GFR estimate is not adjusted for extreme body surface area or acute process, nor has it been validated for women or ethnic groups other than and . Testing performed at [place] [address] Performed By: #### C MPF, BNP, ACBC #### Testing performed at [place] [id number] Glucose [Mass/Vol] 112 mg/dL High 70-100 [facility] Comment on above: Result Comment: NORMAL <100 mg/dL PREDIABETES 101-126 mg/dL DIABETES 126 mg/dL or higher Performed By: #### C MPF, BNP, ACBC #### Testing [place] [address] Potassium [Moles/Vol] 4.0 mmol/L Normal 3.5-5.1 [facility] Comment on above: Performed By: #### C MPF, BNP, ACBC #### Testing [place] [address] Protein [Mass/Vol] 7.4 g/dL Normal 6.3-8.2 [facility] Comment on above: Performed By: #### C MPF, BNP, ACBC #### [place] [address] Sodium [Moles/Vol] 131 mmol/L Low 137-145 [facility] Comment on above: Performed By: #### C MPF, BNP, ACBC #### [place] [address] Urea nitrogen [Mass/Vol] 19 mg/dL Normal 7-20 [facility] Comment on above: Performed By: #### C MPF, BNP, ACBC #### [place] [address] COMPREHENSIVE METABOLIC PANE LOrdered By: Jorge Ruiz on 09-24-2020 Albumin [Mass/Vol] 4.3 G/dl 3.5 - 5.0 G/dl [facility] Albumin/Globulin [Mass ratio] 1.4 {ratio} [facility] ALP [Catalytic activity/Vol] 106 U/L [facility] ALT [Catalytic activity/Vol] 30 U/L <50 IU/L [facility] AST [Catalytic activity/Vol] 30 U/L [facility] Bilirubin [Mass/Vol] 0.3 mg/dL [facility] Calcium [Mass/Vol] 9.7 mg/dL [facility] Chloride [Moles/Vol] 102 mmol/L [facility] Comment on above: Please note: Triglyc eride levels of 600mg/dL or higher may positively bias chloride results by approximately 2.1 mmol CO2 [Moles/Vol] 23 mmol/L [facility] Creatinine [Mass/Vol] 1.10 mg/dL [facility] GFR COMMENT Average GFR for 50-5 9 years old = 93. [facility] Comment on above: Chronic Kidney disea se, GFR = <60. Kidney failure, GFR = <15. The GFR estimate is not adjusted for extreme body surface area or acute process, nor has it been validated for women or ethnic groups other than and . Testing performed at [place] [address] GFR/1.73 sq M.predicted among blacks MDRD (S/P/Bld) [Vol rate/Area] mL/min/{1.73_m2} ml/min/1.73 sq.m [facility] GFR/1.73 sq M.predicted among non-blacks MDRD (S/P/Bld) [Vol rate/Area] mL/min/{1.73_m2} ml/min/1.73 sq.m [facility] Glucose post fast [Mass/Vol] 112 mg/dL High [facility] Comment on above: NORMAL <100 mg/dL PREDIABETES 101-126 mg/dL DIABETES 126 mg/dL or higher Interpretation and review of laboratory results Abnormal [facility] Potassium [Moles/Vol] 4.0 mmol/L [facility] Protein [Mass/Vol] 7.4 g/dL [facility] Sodium [Moles/Vol] 131 mmol/L Low [facility] Urea nitrogen [Mass/Vol] 19 mg/dL [facility] NOVEL CORONAVIRUSon 09-25-19 21 NARRATIVE This test was performed using isothermal SYLVESTER and has been approved as Emergency Use Authorization (EUA) for the qualitative detection [id number] nucleic acid. Normal [facility] Comment on above: Result Comment: Test ing performed at [place] [address] Performed By: #### C OVID #### [place] [address] SARS-CoV-2 (COVID-19) RNA SYLVESTER+probe Ql (Unsp spec) Not detected Normal NOT DETECTED [facility] Comment on above: Result Comment: Nega tive results do not preclude SARS-CoV-2 infection and should not be used as the sole basis for treatment or other patient management decisions. Optimum specimen types and timing for peak viral levels during infections caused by SARS-CoV-2 has not been determined. The possibility of a false negative result should especially be considered if the patient's recent exposures or clinical presentation suggest that SARS-CoV-2 infection is probable, and diagnostic tests for other causes of illness (e.g., other respiratory illness) are negative. Collection of a new specimen and re-testing may be necessary if the patient is critically ill or clinically deteriorating. Performed By: #### C OVID #### Testing performed at [address] [address] NOVEL CORONAVIRUS LAB 1 - NA SOPHARYNGEALOrdered By: Jorge Ruiz on 09-24-2020 NARRATIVE -1 This test was performed using isothermal SYLVESTER and has been approved as Emergency Use Authorization (EUA) for the qualitative detection [id number] nucleic acid. [facility] Comment on above: Testing performed at [place], [place] [address] SARS-CoV-2 (COVID-19) RNA SYLVESTER+probe Ql (Unsp spec) Not detected NOT DETECTED [facility] Comment on above: Negative results do not preclude SARS-CoV-2 infection and should not be used as the sole basis for treatment or other patient management decisions. Optimum specimen types and timing for peak viral levels during infections caused by SARS-CoV-2 has not been determined. The possibility of a false negative result should especially be considered if the patient's recent exposures or clinical presentation suggest that SARS-CoV-2 infection is probable, and diagnostic tests for other causes of illness (e.g., other respiratory illness) are negative. Collection of a new specimen and re-testing may be necessary if the patient is critically ill or clinically deteriorating. [facility] TROPONIN I, HIGH SENSITIVITY on 09-24-2020 TROPONIN I, HIGH SENSITIVITY 3 pg/mL Normal 0-20 [facility] Comment on above: Result Comment: Indeterminant: >12 to 100 pg/mL female >20 to 100 pg/mL male Indicative of myocardial injury. Serial sampling is recommended, a change of greater than or equal to 20 pg/mL is indicative of acute coronary syndrome. Testing performed at [place] [address] Performed By: #### T ROHS #### [place] [address] TROPONIN I, HIGH SENSITIVITY 3 pg/mL Normal 0-20 [facility] Comment on above: Result Comment: Indeterminant: >12 to 100 pg/mL female >20 to 100 pg/mL male Indicative of myocardial injury. Serial sampling is recommended, a change of greater than or equal to 20 pg/mL is indicative of acute coronary syndrome. Testing performed at [place] [address] Performed By: #### T ROHS #### [place] [address] TROPONIN I, HIGH SENSITIVITY Ordered By: Jorge Ruiz on 09-24-2020 TROPONIN I, HIGH SENSITIVITY 3 pg/mL 0 - 20 pg/mL [facility] Comment on above: Indeterminant: >12 to 100 pg/mL female >20 to 100 pg/mL male Indicative of myocardial injury. Serial sampling is recommended, a change of greater than or equal to 20 pg/mL is indicative of acute coronary syndrome. Testing performed at [address] TROPONIN I, HIGH SENSITIVITY 3 pg/mL 0 - 20 pg/mL [facility] Comment on above: Indeterminant: >12 to 100 pg/mL female >20 to 100 pg/mL male Indicative of myocardial injury. Serial sampling is recommended, a change of greater than or equal to 20 pg/mL is indicative of acute coronary syndrome. Testing performed at [address] URINALYSIS, MACROOrdered By: Jorge Ruiz on 09-24-2020 Bilirubin Ql (U) Negative NEGATIVE [facility] Clarity (U) CLEAR CLEAR [facility] Color (U) YELLOW YELLOW [facility] Glucose Test strip (U) [Mass/Vol] Negative NEGATIVE mg/dl [facility] Hemoglobin Ql (U) Negative NEGATIVE [facility] Ketones (U) [Mass/Vol] Negative NEGAT ABDOUL mg/dl [facility] Leukocyte esterase Test strip Ql (U) Negative NEGATIVE [facility] Comment on above: Testing performed at [place] [address] Nitrite Ql (U) Negative NEGATIVE [facility] pH (U) 5.5 [pH] [facility] Protein Ql (U) Negative NEGATIVE mg/dl [facility] Specific gravity (U) [Rel density] 1.020 [facility] Urobilinogen (U) [Mass/Vol] 0.2 mg/dL [facility] URINE MACROSCOPICon 09-25-19 21 Bilirubin Ql (U) Negative Normal NEGATIVE [facility] Comment on above: Performed By: #### U MAC #### [place] [address] Clarity (U) CLEAR Normal CLEAR [facility] Comment on above: Performed By: #### U MAC #### [place] [address] Color (U) YELLOW Normal YELLOW [facility] Comment on above: Performed By: #### U MAC #### Testing performed at [address] [address] Glucose Ql (U) Negative Normal NEGATIVE [facility] Comment on above: Performed By: #### U MAC #### [place] [address] pH (U) 5.5 [pH] Normal 5.0-7.0 [facility] Comment on above: Performed By: #### U MAC #### Testing performed at [address] [address] URINE HEMOGLOBIN Negative Normal NEGATIVE [facility] Comment on above: Performed By: #### U MAC #### [place] [address] URINE KETONE Negative Normal NEGATIVE [facility] Comment on above: Performed By: #### U MAC #### [place] [address] URINE LEUKOTEST Negative Normal NEGATIVE [facility] Comment on above: Result Comment: Test ing performed at [place], [place] [address] Performed By: #### U MAC #### Testing performed at [facility] [address] [place] [address] URINE NITRATES Negative Normal NEGATIVE [facility] Comment on above: Performed By: #### U MAC #### Testing performed at [facility] [address] [place] [id number] URINE SPEC GRAVITY 1.020 Normal 1.010-1.025 [facility] Comment on above: Performed By: #### U MAC #### [place] [address] URINE TOTAL PROTEIN Negative Normal NEGATIVE [facility] Comment on above: Performed By: #### U MAC #### [place] [address] Urobilinogen Qn (U) 0.2 {Mando'U}/dL Normal 0.2-1.0 [facility] Comment on above: Performed By: #### U MAC #### Testing performed at [place] [id number] XR CHEST AP PORTABLEon 09-24 XR CHEST AP PORTABLE EXAM: XR CHEST AP PORTABLE HISTORY: Chest pain. COMPARISON: None. FINDINGS: Single frontal view of the chest was obtained. Patient is mildly rotated to the right. Heart size within normal limits. There is slight increased density in the right suprahilar region. Lungs are clear without focal airspace consolidation. No pneumothorax or pleural effusion. Visualized portions of the upper abdomen unremarkable. Mild degenerative changes noted in the spine. IMPRESSION: No focal airspace consolidation or other acute cardiopulmonary abnormality. Slight increased density in the right suprahilar region likely related to positioning. Recommend attention on followup nonemergent standard PA and lateral chest. Normal [facility] XR CHEST AP PORTABLEOrdered By: Jorge Ruiz on 09-24-2020 IMPRESSION: No focal airspace consolidation or other acute cardiopulmonary abnormality. Slight increased density in the right suprahilar region likely related to positioning. Recommend attention on followup nonemergent standard PA and lateral chest. [facility] EXAM: XR CHEST AP PORTABLE HISTORY: Chest pain. COMPARISON: None. FINDINGS: Single frontal view of the chest was obtained. Patient is mildly rotated to the right. Heart size within normal limits. There is slight increased density in the right suprahilar region. Lungs are clear without focal airspace consolidation. No pneumothorax or pleural effusion. Visualized portions of the upper abdomen unremarkable. Mild degenerative changes noted in the spine. [facility] - 09/24/2020 10:20 AM EDT EXAM: XR CHEST AP PORTABLE HISTORY: Chest pain. COMPARISON: None. FINDINGS: Single frontal view of the chest was obtained. Patient is mildly rotated to the right. Heart size within normal limits. There is slight increased density in the right suprahilar region. Lungs are clear without focal airspace consolidation. No pneumothorax or pleural effusion. Visualized portions of the upper abdomen unremarkable. Mild degenerative changes noted in the spine. IMPRESSION IMPRESSION: No focal airspace consolidation or other acute cardiopulmonary abnormality. Slight increased density in the right suprahilar region likely related to positioning. Recommend attention on followup nonemergent standard PA and lateral chest. [facility] Lab Miscellaneouson 01-11-20 17 Status See Ref Lab Report Normal [facility] Comment on above: Performed By: #### 1 [id number] ####[facility] [address] [place] [address] VALERY w/Reflex if POSon 2016 Nuclear antibody (VALERY) presence Negative Invalid Interpretation Code Negative [facility] Comment on above: Result Comment: Perf ormed at: [facility] [address] [id number] PhD Nicolas Cespedes Performed By: #### 2 477873, 73922236, 8717307, 83572723, 7693924, 70535623, 48250946 ####[facility] [address] [place] [address] Coding Summary.on 01-08-2017 Coding Summary. 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 However, the narrative phrase printed from the coding software may appear abbreviated, or result in slightly different terminology. Coded By: Debbi Spencer Date Saved: 01/08/2017 12:44 pm Normal [facility] RF Quanton 01-08-2017 Rheumatoid factor [IU]/mL Invalid Interpretation Code 0.0-13.9 [facility] Comment on above: Result Comment: Perf ormed at: [facility] [address] [place], [place] [id number] PhD Nicolas Cespedes Performed By: #### 2 814815, 75883060, 0702099, 09475935, 4973753, 25389788, 28251492 ####[facility] [address] [place] [address] CBC w/Indiceson 01-07-2017 Erythrocyte distribution width Auto Ratio (RBC) 14.3 % High 10.9-14.2 [facility] Comment on above: Performed By: #### 2 521787, 97268711, 3646293, 59275533, 3402679, 87269101, 63204945 ####[facility] [address] [place] [address] Erythrocytes (RBC) 5.5 E12/L Normal 4.3-5.9 [facility] Comment on above: Performed By: #### 2 873320, 33842353, 5791086, 60784451, 0983846, 08464776, 99848889 ####[facility] [address] [place] [address] Hematocrit (HCT) 47.9 % Normal 37.7-49.0 [facility] Comment on above: Performed By: #### 2 350861, 52855975, 1802123, 03546825, 7624324, 32375513, 10789945 ####[facility] [address] [place] [address] Hemoglobin mass conc (Bld) 16.0 g/dL Normal 13.5-17.5 [facility] Comment on above: Performed By: #### 2 306198, 68269472, 1241787, 04981661, 5416017, 88817033, 00582899 ####[place] [address] MCH 29.1 pg Normal 27.0-34.0 [facility] Comment on above: Performed By: #### 2 170612, 68715098, 0743822, 01088688, 0299994, 92656356, 86401007 ####[place] [address] MCHC mass conc (RBC) 33.5 g/dL Normal 31.4-39.3 [facility] Comment on above: Performed By: #### 2 654264, 63553707, 7560948, 47060185, 3652556, 11506090, 58265494 ####[place] [address] MCV 86.8 fL Normal 80.0-100.0 [facility] Comment on above: Performed By: #### 2 202985, 04975253, 3228459, 70532012, 1821464, 76208908, 51090256 ####[place] [address] Platelet mean volume (PMV) 8.2 fL Normal 6.4-10.8 [facility] Comment on above: Performed By: #### 2 188766, 77603391, 9799300, 32482067, 1096486, 14428189, 69041571 ####[place] [address] Platelets 285.0 E9/L Normal 150.0-500.0 [facility] Comment on above: Performed By: #### 2 098882, 37598672, 3311135, 72004239, 3399699, 83031495, 14471515 ####[place] [address] WBC (Leukocytes) 11.7 E9/L High 4.0-11.0 [facility] Comment on above: Performed By: #### 2 607067, 43579145, 7739721, 75756826, 1587685, 35836723, 67471364 ####[facility] [address] [place] [address] CMPon 01-07-2017 Alanine aminotransferase (ALT) 40 Int._Unit/L Normal 6-46 [facility] Comment on above: Performed By: #### 2 097018, 81811221, 6632197, 39776732, 4175714, 04065681, 18579400 ####[facility] [address] [place] [address] Albumin 1.4 g/dL Normal 1.1-2.2 [facility] Comment on above: Performed By: #### 2 950359, 72522724, 0740041, 07590744, 7558130, 61567012, 71875894 ####[facility] [address] [place] [address] Albumin 4.2 g/dL Normal 3.3-5.0 [facility] Comment on above: Performed By: #### 2 913671, 34729666, 4816940, 16761595, 5709042, 69871916, 40172110 ####[place] [address] [place] [address] Alkaline phosphatase (ALP) 70 Int._Unit/L Normal 21-98 [facility] Comment on above: Performed By: #### 2 937683, 99072671, 3576594, 54907254, 8923812, 76437320, 48926964 ####[facility] [address] [place] [address] Anion gap 12 mmol/L Normal 6-16 [facility] Comment on above: Performed By: #### 2 728180, 90460684, 0094653, 33695671, 7051706, 03728796, 10005449 ####[facility] [address] [place] [address] Aspartate aminotransferase (AST) 31 Int._Unit/L Normal 5-43 [facility] Comment on above: Performed By: #### 2 733487, 35080176, 1185979, 96480283, 2736621, 55255993, 90326544 ####[facility] [address] [place] [address] Bilirubin (total) 0.7 mg/dL Normal 0.0-1.1 [facility] Comment on above: Performed By: #### 2 597158, 41749872, 7854331, 58861849, 7721837, 87646235, 89881823 ####[facility] [address] [place] [address] BUN/Creatinine Ratio 18 No Units Normal 10-20 [facility] Comment on above: Performed By: #### 2 851518, 99108244, 5161010, 83382780, 0877830, 26341296, 79323211 ####[facility] [address] [place] [address] Calcium 9.2 mg/dL Normal 8.9-11.1 [facility] Comment on above: Performed By: #### 2 472248, 06915480, 0671020, 10619643, 4003157, 05015486, 18158833 ####[facility] [address] [place] [address] Chloride 103 mmol/L Normal 101-111 [facility] Comment on above: Performed By: #### 2 255158, 58891796, 0922083, 53776508, 5170700, 32314789, 36211290 ####[facility] [address] [place] [address] CO2 24 mmol/L Normal 21-31 [facility] Comment on above: Performed By: #### 2 164450, 63402059, 9320922, 30467185, 4459220, 15894607, 06003890 ####[facility] [address] [place] [address] Creatinine 1.2 mg/dL Normal 0.5-1.3 [facility] Comment on above: Performed By: #### 2 451644, 55838207, 6395314, 87324737, 1390812, 79973939, 48131732 ####[facility] [address] [place] [address] Globulin 3.0 g/dL Normal 1.4-4.0 [facility] Comment on above: Performed By: #### 2 335178, 00326539, 8632158, 31260088, 6066252, 07080379, 34099292 ####[facility] [address] [place] [address] Glucose mass conc 93 mg/dL Normal 55-199 [facility] Comment on above: Result Comment: If t his glucose result represents a fasting glucose, interpretation should refer to the following reference range: 55-99 mg/dL Performed By: #### 2 176174, 33118637, 8986311, 41263032, 7811219, 93750290, 27911259 ####[facility] [address] [place] [address] Potassium molar conc 4.1 mmol/L Normal 3.5-5.3 [facility] Comment on above: Performed By: #### 2 717635, 55347325, 1845735, 11464859, 9038831, 64847937, 78604446 ####[facility] [address] [place] [address] Protein 7.2 g/dL Normal 6.0-7.8 [facility] Comment on above: Performed By: #### 2 533877, 95675259, 2826969, 51383307, 4604944, 61452192, 20788713 ####[facility] [address] [place] [address] Sodium 135 mmol/L Normal 135-145 [facility] Comment on above: Performed By: #### 2 151702, 89210853, 0199602, 30272767, 7472109, 32608606, 83812883 ####[facility] [address] [place] [address] Urea nitrogen 21 mg/dL Normal 5-21 [facility] Comment on above: Performed By: #### 2 607760, 04708829, 0927778, 29191724, 3440490, 58790767, 86515487 ####[facility] [address] [place] [address] Lab Miscellaneouson 01-08-20 17 Test Name CRP Invalid Interpretation Code [facility] Comment on above: Performed By: #### 1 2877586 ####[facility] [address] [place] [address] Sed Rate Automatedon 017 Erythrocyte sedimentation rate 7 mm/h Normal 0-19 [facility] Comment on above: Performed By: #### 2 961625, 53353143, 9020550, 54607711, 5270941, 40864569, 60819065 ####[facility] [address] [place] [address] Uric Acidon 01-07-2017 Urate 7.3 mg/dL Normal 2.2-7.4 [facility] Comment on above: Performed By: #### 2 065358, 25669624, 9889260, 33102702, 0862918, 19073990, 58630029 ####[facility] [address] [place] [address] eGFRon 01-07-2017 eGFR (black) mL/min/{1.73_m2} Normal >=59 [facility] Comment on above: Order Comment: Order added by Discern Expert. Result Comment: eGFR is race adjusted. AA=. Performed By: #### 2 067819, 72910595, 3254609, 74399655, 8452386, 98203236, 57407347 ####[facility] [address] [place] [address] eGFR (non-black) mL/min/{1.73_m2} Normal >=59 [facility] Comment on above: Order Comment: Order added by Discern Expert. Result Comment: Research And Development Engineer brent kidney disease could be indicated at eGFR's of less than 60 mL/min/1.73m2. Kidney failure is indicated at less than 15 mL/min/1.73m2. Performed By: #### 2 724929, 07243479, 1739377, 72220730, 8143699, 97946654, 37627952 ####[facility] [address] [place] [address] Coding Summary.on 01-01-2017 Coding Summary. 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 However, the narrative phrase printed from the coding software may appear abbreviated, or result in slightly different terminology. Coded By: Debbi Spencer Date Saved: 01/01/2017 11:41 am Normal [facility] XR Ankle 3+ Views Lefton INR Coag RelTime (Bld) Exam Date/Time:12/31/2016 12:20 EDTReason for Exam:M79.672, Left foot painReportIMPRESSION: NO EVIDENCE OF ACUTE FRACTURE OR DISLOCATION OF THE LEFT ANKLE.COMMENT: Four images of the left ankle show no fracture or dislocation. Anklemortise is well-maintained. There is mild soft tissue swelling along the lateralaspect of the ankle. There is small heel spur. FINAL REPORT Dictated: 12/31/2016 3:17 pm Irving Salas M.D. Signed (Electronic Signature): 12/31/2016 3:46 pm Signed by: Irving Salas M.D. Transcribed by: geovanny Technologist: ANA Normal [facility] XR Foot 3+ Views Lefton 07- INR Coag RelTime (Bld) Exam Date/Time:12/31/2016 12:20 EDTReason for Exam:M79.672, Left foot painReportIMPRESSION: NEGATIVE LEFT FOOT.COMMENT: Three views of the left foot show no fracture or dislocation. There is asmall heel spur. There is a small bone island in the fourth middle phalangeal base.There is no other bony or joint abnormality seen. Soft tissue is unremarkable. FINAL REPORT Dictated: 12/31/2016 3:48 pm Irving Salas M.D. Signed (Electronic Signature): 12/31/2016 5:00 pm Signed by: Irving Salas M.D. Transcribed by: gino Technologist: ANA Arreaga [facility] Vital Signs Date Time Vital Sign Value Performing Clinician Facility 12-18-2022 15:45-0400 Body height 178.44 cm James Carmonacayden Other [facility] Other 12-18-2022 15:45-0400 Body mass index (BMI) [Ratio] 33.68 kg/m2 James Carmonacayden Other [facility] Other 12-18-2022 15:45-0400 Body weight 107.23 kg James Grace Other [facility] Other 12-18-2022 15:45-0400 Diastolic blood pressure 70 mm[Hg] James Carmonacayden Other [facility] Other 12-18-2022 15:45-0400 Respiratory rate 16 /min James Carmonacayden Other [employer] Other 12-18-2022 15:45-0400 SaO2% (BldA) [Mass fraction] 98 % Jamescoral Carmonacayden Other [employer] Other 12-18-2022 15:45-0400 Systolic blood pressure 114 mm[Hg] James Grace Other [employer] [facility] [employer] Other 07-25-2022 09:10-0500 Diastolic blood pressure 81 mm[Hg] DO James Carmonas Work Phone: [facility] 07-25-2022 09:10-0500 Heart rate 80 /min DO James Carmonas Work Phone: [facility] 07-25-2022 09:10-0500 Respiratory rate 16 /min DO James Grace Work Phone: [facility] 07-25-2022 09:10-0500 SaO2% (BldA) [Mass fraction] 96 % DO James Grace Work Phone: [facility] 07-25-2022 09:10-0500 Systolic blood pressure 122 mm[Hg] DO James Grace Work Phone: [facility] 07-25-2022 07:04-0500 Body height 175.26 cm DO James Grace Work Phone: [facility] 07-25-2022 07:04-0500 Body temperature 97.8 [degF] DO James Grace Work Phone: [facility] 07-25-2022 07:04-0500 Body weight 109.76 kg DO James Grace Work Phone: [facility] 06-26-2022 15:30-0500 Body height 178.44 cm James Carmonas Other [employer] Other 06-26-2022 15:30-0500 Body mass index (BMI) [Ratio] 34.47 kg/m2 James Carmonas Other [employer] [facility] [employer] Other 06-26-2022 15:30-0500 Body weight 109.77 kg James Grace Other [employer] Other 06-26-2022 15:30-0500 Diastolic blood pressure 70 mm[Hg] James Grace Other [employer] Other 06-26-2022 15:30-0500 Respiratory rate 16 /min James Grace Other [employer] Other 06-26-2022 15:30-0500 SaO2% (BldA) [Mass fraction] 92 % James Grace Other [employer] Other 06-26-2022 15:30-0500 Systolic blood pressure 118 mm[Hg] James Grace Other [employer] Other 04-08-2022 14:45-0400 Body height 178.44 cm Lucas Lion II Other [employer] Other 04-08-2022 14:45-0400 Body mass index (BMI) [Ratio] 34.9 kg/m2 Lucas New Roads II Other [employer] Other 04-08-2022 14:45-0400 Body weight 111.13 kg Lucas New Roads II Other [employer] Other 03-13-2022 16:00-0400 Body height 178.44 cm Lucas Lion II Other [employer] Other 03-13-2022 16:00-0400 Body mass index (BMI) [Ratio] 34.9 kg/m2 Lucas Lion II Other [employer] Other 03-13-2022 16:00-0400 Body weight 111.13 kg Lucas New Roads II Other [employer] Other 02-13-2022 16:45-0400 Body height 178.44 cm James Grace Other [employer] Other 02-13-2022 16:45-0400 Body mass index (BMI) [Ratio] 34.76 kg/m2 James Grace Other [employer] Other 02-13-2022 16:45-0400 Body weight 110.68 kg James Grace Other [employer] Other 02-13-2022 16:45-0400 Diastolic blood pressure 70 mm[Hg] James Grace Other [employer] Other 02-13-2022 16:45-0400 Respiratory rate 16 /min James Grace Other [employer] Other 02-13-2022 16:45-0400 SaO2% (BldA) [Mass fraction] 94 % James Grace Other [employer] Other 02-13-2022 16:45-0400 Systolic blood pressure 112 mm[Hg] James Grace Other [employer] Other 10-10-2021 16:15-0400 Body height 178.44 cm James Grace Other [employer] Other 10-10-2021 16:15-0400 Body mass index (BMI) [Ratio] 34.19 kg/m2 James Grace Other [employer] Other 10-10-2021 16:15-0400 Body weight 108.86 kg James Grace Other [employer] Other 10-10-2021 16:15-0400 Diastolic blood pressure 68 mm[Hg] James Grace Other [employer] Other 10-10-2021 16:15-0400 Respiratory rate 16 /min Jamescoral Carmonacayden Other [employer] Other 10-10-2021 16:15-0400 SaO2% (BldA) [Mass fraction] 98 % James Sarahicayden Other [employer] Other 10-10-2021 16:15-0400 Systolic blood pressure 124 mm[Hg] James Grace Other [employer] Other 05-23-2021 16:45-0500 Body height 178.44 cm James Grace Other [employer] Other 05-23-2021 16:45-0500 Body mass index (BMI) [Ratio] 32.76 kg/m2 James Grace Other [employer] Other 05-23-2021 16:45-0500 Body weight 104.33 kg James Grace Other [employer] Other 05-23-2021 16:45-0500 Diastolic blood pressure 80 mm[Hg] James Grace Other [employer] Other 05-23-2021 16:45-0500 Respiratory rate 16 /min James Grace Other [employer] Other 05-23-2021 16:45-0500 SaO2% (BldA) [Mass fraction] 93 % James Grace Other [employer] Other 05-23-2021 16:45-0500 Systolic blood pressure 106 mm[Hg] Jamescoral Grace Other [employer] Other 03-18-2021 16:45-0400 Body height 178.44 cm James Grace Other [employer] Other 03-18-2021 16:45-0400 Body mass index (BMI) [Ratio] 32.19 kg/m2 James Ronald Other [employer] Other 03-18-2021 16:45-0400 Body weight 102.51 kg James Sarahicayden Other [employer] Other 03-18-2021 16:45-0400 Diastolic blood pressure James Grace Other [employer] Other 03-18-2021 16:45-0400 Respiratory rate 16 /min James Sarahicayden Other [employer] Other 03-18-2021 16:45-0400 SaO2% (BldA) [Mass fraction] 98 % James Sarahicayden Other [employer] Other 03-18-2021 16:45-0400 Systolic blood pressure 115 mm[Hg] James Grace Other [employer] Other 09-24-2020 12:16-0400 Diastolic blood pressure 76 mm[Hg] Jorge Rochajustyn DO Work Phone: [employer] 09-24-2020 12:16-0400 Heart rate 72 /min [facility] 09-24-2020 12:16-0400 Respiratory rate 15 /min Jorge Bercik DO [facility] 09-24-2020 12:16-0400 SaO2% (BldA) [Mass fraction] 99 % Jorge [facility]ercik DO [facility] 09-24-2020 12:16-0400 Systolic blood pressure 124 mm[Hg] Jorge Rochacik DO [facility] 09-24-2020 09:36-0400 SaO2% (BldA) [Mass fraction] 97.0 % Jorge [facility]ercik DO [facility] 09-24-2020 08:51-0400 Body height 175.3 cm Jorge Ajcik DO Work Phone: [facility] 09-24-2020 08:51-0400 Body mass index (BMI) [Ratio] 33.67 kg/m2 Jorge Ajcik DO [facility] 09-24-2020 08:51-0400 Body weight 103.42 kg Jorge Bercik DO [facility] 09-24-2020 08:50-0400 Body temperature 97.39 [degF] Jorge Nealk DO Work Phone: [facility] Encounters Encounter Date Encounter Type Care Provider Facility Start: 07-08-2023 End: 07-09-2023 [facility] Start: 07-08-2023 End: 07-08-2023 Subsequent hospital visit by physician Phi HUERTAHZ [facility] Comment on above: Arrived Start: 07-06-2023 End: 07-06-2023 Subsequent hospital visit by physician Phi HUERTAHZ [facility] Start: 06-29-2023 End: 06-30-2023 ambulatory [facility] Start: 06-26-2023 End: 06-27-2023 ambulatory [facility] Start: 06-17-2023 End: 06-18-2023 ambulatory [facility] Start: 06-15-2023 End: 06-16-2023 ambulatory [facility] Start: 06-11-2023 End: 06-12-2023 ambulatory [facility] Start: 06-10-2023 End: 06-11-2023 ambulatory [facility] Start: 06-10-2023 End: 06-10-2023 Subsequent hospital visit by physician Grisel Reed PT [facility] Comment on above: Arrived Start: 06-09-2023 End: 06-09-2023 ambulatory James Grace Other [place] [employer] Other Start: 06-09-2023 Telephone encounter James Grace [facility] [place] Start: 06-04-2023 End: 06-05-2023 ambulatory [facility] Start: 05-28-2023 End: 05-29-2023 ambulatory [facility] Start: 05-22-2023 End: 05-23-2023 ambulatory [facility] Start: 05-18-2023 End: 05-19-2023 ambulatory [facility] Start: 05-13-2023 End: 05-14-2023 ambulatory [facility] Start: 05-11-2023 End: 05-12-2023 ambulatory [facility] Start: 05-08-2023 End: 05-09-2023 ambulatory [facility] Start: 01-26-2023 ambulatory RUBY YORK Faci lity:H1 Start: 01-12-2023 ambulatory RUBY YORK Faci lity:H1 Start: 12-18-2022 End: 12-18-2022 ambulatory James Grace Other [employer] Other Start: 12-18-2022 Office outpatient visit 25 minutes James Grace [facility] [place] Start: 10-08-2022 End: 10-08-2022 ambulatory Lucas Lion II Other [employer] Other Start: 10-08-2022 Office outpatient visit 25 minutes Lucas New Roads II [facility] Start: 10-03-2022 End: 10-03-2022 ambulatory James Grace Other [employer] Other Start: 10-03-2022 Telephone encounter James Grace [facility] [place] Start: 08-04-2022 End: 08-04-2022 ambulatory Max France Other [employer] Other Start: 08-04-2022 Telephone encounter Max Doan [facility] Tele[facility] Clerk Start: 08-02-2022 End: 08-03-2022 ambulatory RUBY YORK Facility:[facility] Start: 07-25-2022 End: 07-25-2022 ambulatory Max France Facility:[facility] Start: 07-25-2022 End: 07-25-2022 Admission to same day surgery center DO James Grace Work Phone: [facility] Work Phone: Start: 07-25-2022 End: 07-25-2022 ambulatory DO James Grace Work Phone: [facility] Work Phone: Start: 07-14-2022 End: 07-14-2022 ambulatory James Grace Other [employer] Other Start: 07-14-2022 Telephone encounter James Grace [facility] [place] Start: 07-09-2022 End: 07-10-2022 ambulatory RUBY YORK Facility:[facility] Start: 07-01-2022 End: 07-01-2022 ambulatory James Ronald Other [employer] Other Start: 07-01-2022 Telephone encounter James Grace [facility] Family [facility] [place] Start: 06-26-2022 End: 06-26-2022 ambulatory James Carmonacayden Other [employer] Other Start: 06-26-2022 Office outpatient visit 25 minutes James Grace [facility] Family [facility] [place] Start: 05-30-2022 End: 05-30-2022 Subsequent hospital visit by physician Phi Marino [facility] Physical [facility] Start: 05-07-2022 End: 05-07-2022 ambulatory James Grace Other [employer] Other Start: 05-07-2022 Telephone encounter James Grace [facility] Family [facility] [place] Start: 04-09-2022 End: 04-09-2022 ambulatory Max France Other [employer] Other Start: 04-09-2022 Telephone encounter Max Doan [facility] Start: 04-08-2022 End: 04-08-2022 ambulatory Lucas Seymour II Other [employer] Other Start: 04-08-2022 Office outpatient visit 25 minutes Lucas New Roads II [facility] Start: 04-03-2022 End: 04-03-2022 ambulatory James Grace Other [employer] Other Start: 04-03-2022 Telephone encounter James Ronald [facility] Family [facility] [place] Start: 03-24-2022 End: 03-24-2022 ambulatory James Carmonacayden Other [employer] Other Start: 03-24-2022 Telephone encounter James Grace [facility] Family [facility] [place] Start: 03-21-2022 End: 03-21-2022 ambulatory James Grace Facility:[facility] Start: 03-21-2022 End: 03-21-2022 ambulatory DO James Grace Work Phone: [facility] Work Phone: Start: 03-21-2022 End: 03-21-2022 Patient encounter procedure DO James Grace Work Phone: [facility] [address] Start: 03-14-2022 End: 03-14-2022 ambulatory Lucas Lion II Other [employer] Other Start: 03-14-2022 Telephone encounter Lucas Valdezisle II [facility] Start: 03-13-2022 [facility] visit new patient Lucas Valdezisle II [facility] Start: 03-13-2022 End: 03-13-2022 ambulatory James Grace [place] [employer] Other Start: 03-13-2022 End: 03-13-2022 Patient encounter procedure DO James Grace Work Phone: [facility] Start: 02-13-2022 End: 02-13-2022 ambulatory James Grace Other [employer] Other Start: 02-13-2022 Office outpatient visit [facility] minutes [facility] Start: 02-04-2022 End: 02-04-2022 ambulatory James Grace Other [employer] Other Start: 02-04-2022 Telephone encounter James Grace [facility] Start: 01-27-2022 End: 01-27-2022 Patient encounter procedure DO James Grace Work Phone: [facility] Start: 01-27-2022 End: 01-27-2022 ambulatory James Grace [facility] [employer] Other Start: 01-27-2022 Telephone encounter James Grace [facility] Family [facility] [place] Start: 01-06-2022 End: 01-06-2022 ambulatory James Grace Other [employer] Other Start: 01-06-2022 Telephone encounter James Grace [facility] [place] Start: 12-16-2021 End: 12-17-[address] JAMES GRACE Facility: Start: 10-10-2021 End: 10-10-2021 ambulatory James Grace Other [employer] Other Start: 10-10-2021 Office outpatient visit 25 minutes James Grace [facility] Family [facility] [place] Start: 10-01-2021 End: 10-01-2021 ambulatory James Grace Other [employer] Other Start: 10-01-2021 Telephone encounter James Grace [facility] [place] Start: 09-06-2021 End: 09-06-2021 ambulatory James Grace Other [employer] Other Start: 09-06-2021 Telephone encounter James Grace [facility] [place] Start: 06-25-2021 End: 06-25-2021 ambulatory James Grace Other [employer] Other Start: 06-25-2021 Telephone encounter James Grace [facility] [place] Start: 06-14-2021 End: 06-14-2021 ambulatory James Grace Other [employer] Other Start: 06-14-2021 Telephone encounter James Grace [facility] [place] Start: 05-23-2021 End: 05-23-2021 ambulatory James Grace Other [facility] [employer] Other Start: 05-23-2021 Office outpatient visit 15 minutes James Grace [facility] Start: 04-02-2021 Telephone encounter James Grace [facility] Start: 03-19-2021 Telephone encounter James Grace [facility] Start: 03-18-2021 Office outpatient visit 15 minutes James Grace [facility] Start: 09-24-2020 End: 09-24-2020 Emergency department patient visit Jorge Ruiz DO Work Phone: [facility] Start: 07-28-2017 End: 07-29-2017 Ambulatory Earl Nicolas Facility:[id number] Start: 01-07-2017 End: 01-08-2017 Ambulatory JAMES~[id number] UNKNOWN KUNS Facility:[facility] Start: 12-31-2016 End: 01-01-2017 Ambulatory JAMES~[id number] UNKNOWN KUNS Facility:[facility] Procedures Date Procedure Procedure Detail Performing Clinician Start: 07-25-2022 Esophagogastroduodenoscopy DO James Grace Work Phone: Start: 03-21-2022 MRI of left hip DO James Grace Work Phone: Start: 03-13-2022 Plain X-ray of left hip DO James Grace Work Phone: Start: 01-27-2022 Plain X-ray of left hip DO James Grace Work Phone: Start: 01-27-2022 X-ray of lumbar spine, four or more views DO James Grace Work Phone: Start: 12-16-2021 PSA screening RUBY YORK Comment on above: Performed By: #### [facility]ASC #### [facility] [address] [place] [address] Dr. Emmie Esquivel Start: 09-24-2020 Assay of troponin quantitative Jorge anderson DO Work Phone: Start: 09-24-2020 Ecg routine ecg w/least 12 lds trcg only w/o i&r Jorge Ruiz DO Work Phone: Start: 09-24-2020 Urinalysis, reagent strip without microscopy Jorge Ruiz DO Work Phone: Start: 09-24-2020 Radiologic exam chest single view Jorge Ruiz DO Work Phone: Start: 09-24-2020 Blood gases any combination ph pco2 po2 co2 hco3 Jorge Ruiz DO Work Phone: Start: 09-24-2020 Iadna nos amplified probe tq each organism Jorge Ruiz DO Work Phone: Start: 09-24-2020 Complete blood count with white cell differential, automated Jorge Ruiz DO Work Phone: Start: 09-24-2020 End: 09-24-2020 Comprehensive metabolic panel Jorge Chau lindachiquis DO Work Phone: Start: 09-24-2020 Ecg routine ecg w/least 12 lds trcg only w/o i&r Jorge Ruiz DO Work Phone: Screening for malign ant neoplasm of prostate James Grace Other Plan of Treatment Date Care Activity Detail Author Start: 06-17-2023 End: 06-17-2023 Patient encounter procedure 06/17/2023 4:00 PM EST Appointment [facility] [address] [place], [place] [id number] Phi Marnio PTA BCBS $ Copay 60.00 4 of 20 Hardmax-Left foot surgery-Ruby [facility] Comment on above: BCBS $ Copay 60.00 4 of 20 Hardmax-Left foot surgery- Ruby York Start: 06-15-2023 End: 06-15-2023 Patient encounter procedure 06/15/2023 3:45 PM EST Appointment [facility] [address] [place] [address] Grisel Reed, PT BCBS $ Copay 60.00 3 of 20 Hardmax-Left foot surgery-Ruby York [facility] Comment on above: BCBS $ Copay 60.00 3 of 20 Hardmax-Left foot surgery- Ruby York Start: 06-11-2023 End: 06-11-2023 Patient encounter procedure 06/11/2023 4:30 PM EST Appointment [facility] [address] [place] [address] Phi Marino PTA BCBS $ Copay 60.00 2 of 20 Hardmax-Left foot surgery-Ruby York [facility] Comment on above: BCBS $ Copay 60.00 2 of 20 Hardmax-Left foot surgery- Ruby York Start: 01-06-2023 Influenza vaccination Flu vaccine (# 1) [facility] Start: 07-25-2022 [facility] Start: 01-06-2022 Influenza vaccination Flu vaccine (# 1) [facility] Start: 02-06-2021 Influenza vaccination INFLUENZ A VACCINE (Season Ended) [facility] Start: 2016 Colonoscopy COLORECTAL CAN CER SCREENING DISCUSSION [facility] Start: 2016 Prostate specific antigen measurement PROSTATE CANCER SCREENING DISCUSSION [facility] Start: 2016 Shingles vaccine (1 of 2) Shingles vaccine (1 of 2) [facility] Start: 2016 Zoster vaccine hzv l abdoul for subcutaneous use ZOSTER (SHINGLES) VACCINE (1 of 2) [facility] Start: 11-02-2011 Screening for malign ant neoplasm of colon [facility] Start: 2006 Fasting lipid profile LIPID SCREENIN G [facility] Start: 2006 Lipid panel Lipids [facility] Start: 1985 DTaP/Tdap/Td vaccine (1 - Tdap) DTaP/Tdap/Td vaccine (1 - Tdap) [facility] Start: 1985 Third diphtheria, tetanus and acellular pertussis (DTaP) vaccination TDAP (ADULT) [facility] Start: 1984 Hepatitis C screening Hepatitis C sc reen [facility] Start: 1984 Tetanus vaccination TETANUS [facility] Start: 1982 COVID-19 VACCINE (1) COVID-19 VACCIN E (1) [facility] Start: 1981 HIV screening HIV screen [facility] Start: 11-02-1979 HIV screening HIV SCREENING DISCUSSI ON [facility] Start: 1978 Depression Screen Depression Screen [facility] Start: 05-04-1967 COVID-19 Vaccine (#1) COVID-19 Vacci ne (#1) [facility] Start: 1966 Hepatitis B vaccine (1 of 3 - 3-dose series) Hepatitis B vaccine (1 of 3 - 3-dose series) [facility] Start: 1966 Hepatitis C antibody , confirmatory test HEPATITIS C VIRUS SCREENING [facility] Patient Education Hemorrhoids (D C) Diverticulosis (DC) Hiatal Hernia (DC) [facility] Work Phone: Standard ECG [facility] Immunizations Immunization Date Immunization Notes Care Provider Fa cili 04-07-2022 influenza, seasonal, injectable Jamescoral Carmonas Other [employer] Other 09-03-2021 diphtheria, tetanus toxoids and pertussis vaccine Jamescoral Carmonas Other [employer] Other 07-13-2020 COVID-19 Vaccine Pfi zer - Documentation Purposes Only James Ronald Other [employer] Other 06-22-2020 COVID-19 Vaccine Pfi zer - Documentation Purposes Only James Ronald Other [employer] Other 04-27-2019 influenza, seasonal, injectable Jamescoral Carmonas Other [employer] Other 03-16-2014 SOLU-MEDROL UP TO 40 mg Brya n Sarahis Other [employer] Other 07-19-2013 Toradol per 15 mg James Kuns Other [employer] Other 02-02-2013 Toradol per 15 mg James Grace Other [employer] Other Payers Date Payer Category Payer Self-pay [id number] 2020 Unknown GENERIC PAYOR [employer] PLAN [id number] 2020-Present [id number] 2016 Private Health Insurance [id number] 1966 Unknown [id number] 2.16.840.1.935849.3.579. 2.593 1966 Unknown [id number] 2.16.840.1.863760.3.579. 2.593 1966 Unknown [id number] 2.16.840.1.641456.3.579. 2.593 1966 Unknown [id number] 2.16.840.1.673752.3.579. 2.593 1966 Unknown [id number] 2.16.840.1.710623.3.579. 2.593 1966 Unknown [id number] 2.16.840.1.630869.3.579. 2.174 1966 Unknown [id number] 2.16.840.1.142424.3.579. 2.174 1966 Unknown [id number] 2.16.840.1.649702.3.579. 2.174 1966 Unknown [id number] 2.16.840.1.764101.3.579. 2.174 1966 Unknown [id number] 2.16.840.1.239285.3.579. 2.174 1966 Unknown [id number] 2.16.840.1.312964.3.579. 2.174 1966 Unknown [id number] 2.16.840.1.369371.3.579. 2.174 1966 Unknown [id number] 2.16.840.1.718215.3.579. 2.174 1966 Unknown [id number] 2.16.840.1.484509.3.579. 2.174 1966 Unknown [id number] 2.16.840.1.635238.3.579. 2.174 1966 Unknown [id number] 2.16.840.1.289320.3.579. 2.174 1966 Unknown [id number] 2.16.840.1.073427.3.579. 2.174 1966 Unknown [id number] 2.16840.1.400844.3.579. 2.174 1966 Unknown [id number] 2.16840.1.860029.3.579. 2.174 1959 Blue Cross Blue Shield [id number] 2.16840.1.956659.19 Unknown Regular Insurance [id number] Unknown [employer] Insurance [id number] Unknown [id number] .840.1.072899.3.579. 2.531 Unknown [id number] 2.840.1.574507.3.579. 2.531 Unknown [id number] 2.16840.1.329223.3.579. 2.531 Unknown [id number] 2.16840.1.091779.3.579. 2.531 Social History Date Type Detail Facility Start: 09-24-2020 Tobacco smoking status NHIS Former smoker [facility] Start: 09-24-2020 Alcohol intake Current drinke r of alcohol (finding) [facility] Start: 09-24-2020 Alcohol Comment occasional [employer] [facility] Start: 1965 Sex Assigned At Not on file [facility] Exposure to SARS-CoV-2 (event) Not sure [employer] [facility] Sex Assigned At [employer] Other Start: 01-14-2021 End: 07-25-2022 Tobacco smoking status NHIS Never smoked tobacco (finding) [facility] Start: 1965 Sex Assigned At Male F [facility] Tobacco smoking status NHIS Tobacco smoking consumption unknown [facility] Work Phone: Goals Date Patient Goal Desired Activity /State Clinical Notes 05-08-2018 to 07-06-2023 Kiara Velez - 07/06/2023 4:45 PM ESTFeGrisel herrmann, PT - 06/10/2023 3:45 PM EST Note Date & Type Note Facility 07-06-2023 History of Presen t illness Narrative Physical Therapy [facility] Date: 07/06/2023 Patient Name: Silas La : 1965 Pt. Called to cancel today's Appt. Did not not state a reason. Kiara Velez Date: 07/06/2023 documented in this encounter [facility] 06-10-2023 History of Presen t illness Narrative Images from the original note were not included. [facility] Daily Note Date: 06/10/2023 Patient Name: Silas La : 1965 (57 y.o.) Referring Provider (secondary): Dr. Ruby York / mariya Pool PA-C Diagnosis: S/P left foot surgery with subtalar joint fusion, gastronemius lengthening, harvest of tibial bone graft Treatment Diagnosis: L foot pain, L ankle pain Onset Date: 01/29/23 PT Insurance Information: [facility] Total # of Visits Approved: 12 Per Physician Order Total # of Visits to Date: 8 Plan of Care/Certification Expiration Date: 06/19/23 Pre-Treatment Pain: 2/10 Assessment Assessment: Pain 2/10 l heel. Completed manual therapy and therex per Doc flow. Strength L ankle PF 4/5- needs to lean on arms to complete a single leg heel raise. Walking with limp, uneven stride, favoring L LE. continue per plan. Plan Continue with current plan of care Exercises/Modalities/Manual: See DocFlow Sheet Education: On good , supportive shoes and to ry wearing different shoes at work tomorrow Goals (Total # of Visits to Date: 8) Short Term Goals Time Frame for Short Term Goals: 8 Short Term Goal 1: Patient to be educated on and independent on HEP-Met Short Term Goal 2: Increase PROM L ankle Df 12 degrees-Met Short Term Goal 3: Increase strength L ankle PF 5/5 with 20 single leg heel raises to improve gait pattern-not Met Usp Goals Time Frame for Caddie Goals : 12 Caddie Goal 1: Patient to walk with gait pattern WFL- heel to toe with even strides/ no limp Usp Goal 2: Decrease pain L foot 0/10 pain with walking 5 min Usp Goal 3: Improve functional mobility with LEFS score >65/80 Post Treatment Pain: 2/10 Time In: 15:45 Time Out : 16:25 Timed Code Treatment Minutes: 40 Minutes Total Treatment Time: 40 Minutes Grisel Reed, PT Date: 06/10/2023 documented in this encounter [facility] 12-18-2022 Evaluation note Encounter Date Diagnosis Assessment Notes Dec, Hyperlipidemia (ICD-10 - E78.5) Current lipid panel has been reviewed with patient today and the levels are stable.This is diet controlled. I have encouraged patient to increase his activity. Work on weight loss and watch the carbs/starches in diet. This will be monitored. Dec, Chronic kidney disease, stage 3 unspecified (ICD-10 - N18.30) Renal function is slightly up and I have encouraged patient to increase his water intake. He is currently on lisinopril for his blood pressure Dec, Hyperglycemia (ICD-10 - R73.9) Glucose was elevated today but A1C is 5.4 which is good. I want him to work on weight loss and increase his activity. Remainder of his labs are stable. Chemestries are good with the exception of his renal function is just slightly higher than I like it. Increase fluids Dec, Arthritis of left foot (ICD-10 - M19.90) Patient is under the care of Dr. York and will be having foot surgery in January. I have encouraged to follow through with plan of care as outlined by senior cyber intelligence analyst Dec, Erectile dysfunction, unspecified erectile dysfunction type (ICD-10 - N52.9) No chest pain or SOB. I will refill Viagra today Dec, Essential hypertension (ICD-10 - I10) Blood pressure is excellent today. He is losing weight. Labs are stable. Encouraged to continue with weight loss and stay on current [employer] Other 05-03-2023 Evaluation note* Encounter Date Diagnosis Assessment Notes Treatment Notes Treatment Clinical Notes October, Greater trochanteric bursitis of left hip (ICD-10 - M70.62) October, Avascular necrosis of bone of left hip (ICD-10 - M87.052) October, Other From a greater trochanteric bursitis standpoint the patient is still doing very well with his injection. I explained to him that he can continue all tibias as tolerated and follow-up with me on a as needed basis. He has any flareups. In regards to his avascular necrosis I think he is doing well with this and not really complaining of any issues. Nonetheless, I would recommend getting him on a bisphosphonate to help with overall bone health. He is in a talk to his primary care provider regarding this at his next visit in December. [employer] Other 04-28-2023 Evaluation note* Encounter Date Diagnosis Assessment Notes Treatment Notes Treatment Clinical Notes Sep, Depression (ICD-10 - F32.9) [employer] Other 02-17-2023 [facility]* Encounter Date Diagnosis Assessment Notes Treatment Notes Treatment Clinical Notes Jul, Barretts esophagus (ICD-10 - K22.70) [employer] Other [id number] NotePROCEDURE: XR ANKLE LT MIN 3 V, XR FOOT LT MIN 3 VIEWS HISTORY: Pain of left ankle joint ; chronic ankle and left heel pain; remote history of heel fracture COMPARISON: None. FINDINGS: BONES:No fracture, acute abnormality, or significant arthropathy. Small calcaneal plantar spur of doubtful clinical significance. SOFT TISSUES:No visible soft tissue swelling. EFFUSION:None visible. OTHER: Negative. IMPRESSION: 1. No acute bone abnormality or significant degenerative changes. 2. Small calcaneal plantar spur. Electronically authenticated by: AVI THOMPSON Date: 2022-07-09 16:36[facility]02-01-2023 NotePROCEDURE: XR ANKLE LT MIN 3 V, XR FOOT LT MIN 3 VIEWS HISTORY: Pain of left ankle joint ; chronic ankle and left heel pain; remote history of heel fracture COMPARISON: None. FINDINGS: BONES:No fracture, acute abnormality, or significant arthropathy. Small calcaneal plantar spur of doubtful clinical significance. SOFT TISSUES:No visible soft tissue swelling. EFFUSION:None visible. OTHER: Negative. IMPRESSION: 1. No acute bone abnormality or significant degenerative changes. 2. Small calcaneal plantar spur. 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 The lesion on his left lower calf region does appear to be an inclusion cyst. 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 I suggest he consult with dermatology for them to examine and provide treatment recommendations. Patient is agreeable, referral initiated. Jun, Left foot pain (ICD-10 - M79.672) Patient states he previously had a boot on the left foot due to a previous fracture he sustained placed by Dr. Acosta but does not feel it healed correctly. He has consistent pain if he is on his feet for 4-5 hours at a time and can hardly walk on it. I suggest he get a second opinion. Referral initiated. Jun, Hyperlipidemia (ICD-10 - E78.5) Blood work ordered. Jun, Screening for prostate cancer (ICD-10 - Z12.5) Blood work ordered. [employer] Other 12-23-2022 History of Present illness Narrative* Yany Quiroz, PT - 05/30/2022 3:15 PM EST [facility] Date: 05/30/2022 Patient Name: Silas La : 1965 Pt Cancelled Appt due to due to inclement weather YANY QUIROZ, PT Date: 05/30/2022 [facility] [place] Phone: [phone] 286-127011-02-2022 Evaluation note* Encounter Date Diagnosis Assessment Notes Treatment Notes Treatment Clinical Notes Apr, Perez esophagus (ICD-10 - K22.70) Apr, Screen for colon cancer (ICD-10 - Z12.11) [employer] Other 2022 Evaluation note* Encounter Date Diagnosis Assessment Notes Treatment Notes Treatment Clinical Notes Apr, Left hip pain (ICD-10 - M25.552) Apr, Trochanteric bursitis, left hip (ICD-10 - M70.62) Apr, Avascular necrosis of bone of left hip (ICD-10 - M87.052) Apr, Other I had a long discussion with the patient regarding his MRI findings. I explained to him that overall his joint looks good. However, he does have a focal area of avascular necrosis. I explained to him that this lesion is small and has a low risk of bleeding to subchondral collapse in its current state. Given the size of the lesion and its current staging, I think he may be a great candidate for alendronate to see if that not only helps with some pain that could be coming from the lesion but also may be in resolving the lesion itself. I plan to reach out to his primary care provider and see if this is something we could get him started on. I told the patient that once I speak with his primary care provider I will reach out to him with a final plan on the alendronate. In regards to his left hip pain currently, he still presents more clinically as hip bursitis. Given his overall joint health in the left hip, I explained to him I would treat him as a hip bursitis with possible even just an incidental avascular necrosis finding on x-ray imaging. As a result, I recommended a left hip bursa steroid injection. Patient agreed. After consent was obtained, the left hip greater trochanteric bursa was injected with 3 cc of Kenalog and 7 cc. Can using sterile technique. Patient tolerated the injection well. We will also plan to get the patient in outpatient physical therapy for left hip greater trochanteric bursitis. I will plan to see him back in 3 months to check on his progress. [employer] Other 10-27-2022 Evaluation note* Encounter Date Diagnosis Assessment Notes Treatment Notes Treatment Clinical Notes Mar, Depression (ICD-10 - F32.9) [employer] Other 10-17-2022 Evaluation note* Encounter Date Diagnosis Assessment Notes Treatment Notes Treatment Clinical Notes Mar, Essential hypertension (ICD-10 - I10) [employer] Other 10-06-2022 Evaluation note* Encounter Date Diagnosis Assessment Notes Treatment Notes Treatment Clinical Notes Mar, Left hip pain (ICD-10 - M25.552) Mar, Other We had a long discussion today regarding his x-ray findings. I explained to him that today's x-rays because they are standing actually obscures some of the details in the left femoral head. However when I look at his x-rays from January at his PCPs office, I noticed the avascular necrosis findings. In order to fully stage his avascular necrosis I recommend getting an MRI without contrast of the left hip. We will also make sure we get a T1 image of the pelvis to check on the right hip. X-rays today do not have any signs of avascular necrosis in the right hip that I can tell. The pain he is describing to me still seems like it is greater trochanteric bursitis and on exam. Nonetheless, as I explained to him the need to see if this lesion is a large enough lesion that may be in his best interest to consider hip replacement before there is subchondral collapse due to the high risk of subchondral collapse in larger lesions. Patient voices understanding. We will start him on 50 mg of meloxicam daily and then I will see him back with the results of the MRI. [employer] Other 09-08-2022 Evaluation note* Encounter Date Diagnosis Assessment Notes Treatment Notes Treatment Clinical Notes Feb, Hyperlipidemia (ICD-10 - E78.5) Blood work reviewed with the patient. His HDL is lower than I'd like but his LDL is below 100 and cholesterol overall is good. He was encouraged to monitor his diet. Feb, Left hip pain (ICD-1 0 - M25.552) Lumbar x-ray reviewed with the patient indicating arthritis but the left hip x-ray does show focal sclerosis of humeral head which per the radiology report could represent bony infarction. His pain is significant and lately reports having difficulty getting up from the toilet and has pain with trying to lift his leg and most of the time needs to use his hands to lift his leg up. I suggest he be evaluated by ortho, he is agreeable. Referral initiated to Dr. Seymour. Feb, Screening for prostate cancer (ICD-10 - Z12.5) PSA is WNL at 0.86. He denies any family history of prostate cancer. Feb, Hyperglycemia (ICD-1 0 - R73.9) Blood work reviewed with the patient. Glucose is elevated at 109. In house Hgb A1C performed today resulting at 5.5%. Feb, Dyspnea on exertion (ICD-10 - R06.09) Refill provided. Patient uses this as needed stating it works very well for him. Feb, CKD (chronic kidney disease) stage 3, GFR 30-59 ml/min (ICD-10 - N18.3) Blood work reviewed with the patient, kidney function is elevated. He was encouraged to increase his water intake. Electrolytes and liver enzymes are WNL. Feb, Neutropenia (ICD-10 - D70.9) Blood work reviewed with the patient, he appears to be neutropenic. We will recheck a CBC in three months. Feb, Barretts esophagus (ICD-10 - K22.70) Patient does have a history of this. He had an EGD last done 06/02/2018 with a repeat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
[2024-03-15 06:48] LABS: Basophils Percent Auto 0.7 % (0.2-2.0); Eosinophils Absolute Auto 0.3 10^3/uL (0.0-0.7); Eosinophils Percent Auto 4.4 % (0.9-7.0); Hematocrit 44.1 % (42.0-54.0); Hemoglobin 14.8 g/dL (14.0-18.0); Immature Granulocytes Abs Auto 0.02 10^3/uL (0.00-0.03); Immature Granulocytes Pct Auto 0.3 % (0.0-0.5); Lymphocytes Absolute Auto 2.6 10^3/uL (1.2-3.8); Lymphocytes Percent Auto 42.3 % (20.5-60.0); Mean Corpuscular HGB Conc 33.6 g/dL (29.9-35.2); Mean Corpuscular Hemoglobin 29.1 pg (25.9-34.0); Mean Corpuscular Volume 86.8 fL (80.0-94.0); Mean Platelet Volume 9.8 fL (9.5-13.5); Monocytes Absolute Auto 0.5 10^3/uL (0.3-0.8); Monocytes Percent Auto 8.5 % (1.7-12.0); Neutrophils Absolute Auto 2.7 10^3/uL (1.4-6.5); Neutrophils Percent Auto 43.8 % (43.0-75.0); Platelet Count 220 10^3/uL (150-450); Red Blood Count 5.08 10^6/uL (4.70-6.10); Red Cell Distribution Width 13.5 % (11.0-15.0); White Blood Count 6.1 10^3/uL (4.0-11.0)
[2024-03-15 09:47] LABS: Prostate Specific Antigen Scrn 1.07 ng/mL (<=4.00)
[2024-03-15 11:22] LABS: Alanine Aminotransferase 47 U/L (16-63); Albumin Globulin Ratio 1.1; Albumin Level 3.5 g/dL (3.4-5.0); Alkaline Phosphatase 111 U/L (46-116); Anion Gap 15.8; Aspartate Amino Transferase 29 U/L (15-37); BUN Creatinine Ratio 18.6; Bilirubin Total 0.4 mg/dL (0.2-1.0); Calcium 9.6 mg/dL (8.5-10.1); Carbon Dioxide 22.2 mmol/L (21.0-32.0); Chloride 104 mmol/L (98-107); Chol HDL Ratio 4.6; Cholesterol 183 mg/dL (<=200); Estimated GFR (African America >60 (>=60 mL/min/1.73m^2); Estimated GFR (Non-African Ame >60 (>=60 mL/min/1.73m^2); Globulin 3.3 g/dL; Glucose 102 mg/dL (74-106); HDL Cholesterol 40 mg/dL (40-60); Sodium 138 mmol/L (136-145); Thyroid Stimulating Hormone 2.582 uIU/mL (0.358-3.740); Total Protein 6.8 g/dL (6.4-8.2); Triglycerides 278 mg/dL (<=150); VLDL CHOLESTEROL 55.6 mg/dL
== END 2024-03-15 06:34 | disposition home or self-care (01) ==
LOC: LAB 06:35
PROVIDERS: PCP Family Medicine; Visit Provider Family Medicine
DX: E78.5 Hyperlipidemia, unspecified (principal); Z12.5 Encounter for screening for malignant neoplasm of prostate
CPT/HCPCS: 36415; 80053; 80061; 84443; 85025; G0103

== ENCOUNTER 2025-02-23 06:40 | Outpatient (OUT) | payer BC, SELFPAY ==
--- OUTSIDE RECORDS SUMMARY | 2025-02-23 06:45 | XMS_ITS | CCD ---
Author Organization [facility] CliniSynd Care Team Providers Care Associate Justice Name Role Phone JAMES GRACE~[phone] UNKNOWN Unavailable U navailable JAMES GRACE~[phone] UNKNOWN Unavailable U navailable JAMES GRACE~[phone] UNKNOWN Unavailable U navailable JAMES GRACE~[phone] UNKNOWN Unavailable U navailable JAMES GRACE~[phone] UNKNOWN Unavailable U navailable JAMES GRACE~[phone] UNKNOWN Unavailable U navailable Earl Nicolas Unavailable Unavailable JAMES GRACE~[phone] UNKNOWN Unavailable U navailable James Grace DO Primary Care Provider UnavailJames Arthur Unavailable Lucas Seymour II Unavailable [phone] DO James Grace Primary Care Provider [phone] DO James Grace Attending Provider MD Lucas Seymour II Attending Provider Max France Unavailable Unavailable Primary Care Provider UnavailDO James Arthur Primary Care Provider MD Max France Attending Provider [phone] RUBY YORK Admitting Unavailable RUBY YORK Attending Unavailable DR JAMES GRACE Primary Care Unavailable DR AVI THOMPSON Consulting Unavailable RUBY YORK Consulting Unavailable RUBY YORK Admitting Unavailable RUBY YORK Attending Unavailable RONALD, DR NICE Primary Care Unavailable RUBY YORK Admitting Unavailable RUBY YORK Attending Unavailable DR JAMES GRACE Primary Care Unavailable RUBY YORK Admitting Unavailable RUBY YORK Attending Unavailable RONALD, DR NICE Primary Care Unavailable HAYES, DR LUIZA Klein Consulting Unavailable [facility] Herrera Consulting Unavailable RONALD, DR NICE Admitting Unavailable RONALD, DR NICE Attending Unavailable RONALD, DR NICE Primary Care Unavailable RONALD, DR NICE Consulting Unavailable Unavailable Primary Care Provider Unavailaris e James Grace DO Primary Care Provider James Grace DO Attending Provider James Grace Attending Unavailable James Grace Primary Care Unavailable James Grace Admitting Unavailable BENSON NEVAREZ Attending Unavailable James Grace DO Primary Care Provider [phone] James Grace DO Attending Provider [phone] Medications Current Medications Medication Drug Class(es) Dates Sig (Normalized) Sig (Original) [id number] 200 actuat albuterol 0.09 mg/actuat metered dose inhaler (20 sources) beta2-Adrenergic Agonist Start: 10-09-2020 take 1 puff(s) by inhalation every four hours as needed ProAir HFA 108 (90 Base) MCG/ACT 1 puff as needed Inhalation every 4 hrs October, Active betamethasone 1 mg/ml topical cream (20 sources) Corticosteroid Start: 08-13-2023 Betamethasone Valerate 0.1 % cream Active 1 APPLIC TOPICAL Three times daily 45 August 13, 2023 1:00am Complies with drug therapy Start: 08-13-2023 End: 08-13-2023 Betamethasone Valerate 0.1 % cream Discontinued 1 APPLIC TOPICAL Daily August 13, 2023 1:00am August 13, 2023 3:28pm FreeTextSi application Externally Once a day; Note: Source Status: Not-TakingundefinedPRN; Refills: 0; Qty: 60 grams; Provider: Ronald Badillo Start: 11-19-2021 Betamethasone Valerate 0.1 % 1 application Externally Once a day Nov, Not-Taking/PRN Start: 11-19-2021 Betamethasone Valerate 0.1 % 1 application Externally Once a day Nov, Not-Taking fluticasone propionate 0.05 mg/actuat metered dose nasal spray (20 sources) Corticosteroid Start: 08-13-2023 take 1 spray(s) nasal route once daily Fluticasone Propionate 50 mcg/actuation spray,suspension Active 1 SPRAY INTRANASAL Daily August 13, 2023 1:00am FreeTextSi spray in each nostril Nasally Once a day; Note: Source Status: Taking; Refills: 1; Provider: Ronald Badillo Complies with drug therapy Start: 02-28-2019 take 1 spray(s) nasa l route once daily Fluticasone Propionate 50 MCG/ACT 1 spray in each nostril Nasally Once a day for 30 day(s) Feb, Active Start: 02-28-2019 take 1 spray(s) nasa l route once daily Fluticasone Propionate 50 MCG/ACT 1 spray in each nostril Nasally Once a day for 30 day(s) Feb, Active hydrocortisone 25 mg/ml topical cream (3 sources) Corticosteroid Start: 08-13-2023 Hydrocortisone (Proctosol Hc) 2.5 % cream with perineal applicator Active 1 APPLIC NV 1 to 2 times per day as needed for hemorrhoids August 13, 2023 1:00am Complies with drug therapy ibuprofen 800 mg oral tablet (1 source) Nonsteroidal Anti-inflammatory Drug Start: 11-15-2024 take 1 tablet by mouth every eight hours as needed for pain ibuprofen (ADVIL;MOTRIN) 800 MG tablet Take 1 tablet by mouth every 8 hours as needed for Pain 30 tablet 1 11/15/2024 Active levoFLOXacin 500 mg oral tablet (1 source) Quinolone Antimicrobial Start: 06-09-2023 take 1 tablet by mouth every twenty-four hours levoFLOXacin 500 MG 1 tablet Orally Once a day for 14 days Jun, Active LORazepam 1 mg oral tablet (20 sources) Benzodiazepine Start: 08-13-2023 take 1 tablet by mouth once daily at bedtime Lorazepam (Ativan) 1 mg tablet Active 1 TAB PO Daily at bedtime August 13, 2023 1:00am FreeTextSi tablet at bedtime as needed Orally Once a day; Note: Source Status: Taking; Refills: 0; Provider: Ronald Badillo Complies with drug therapy Start: 10-09-2020 take 1 tablet by nitin th every twenty-four hours Ativan 1 MG 1 tablet at bedtime as needed Orally Once a day Jan, Active naproxen 500 mg oral tablet (1 source) Nonsteroidal Anti-inflammatory Drug Start: 09-24-2020 take 1 tablet by mouth twice daily as needed naproxen 500 MG tablet Take 1 tablet by mouth 2 times daily as needed. 30 tablet 0 09/24/2020 Active pantoprazole 40 mg delayed release oral tablet (20 sources) Proton Pump Inhibitor Start: 08-25-2023 End: 01-24-2025 take 1 tablet by mouth twice daily Pantoprazole 40 mg tablet,delayed release (DR/EC) Active 40 MG PO Twice daily January 24, 2025 10:40am Complies with drug therapy Start: 05-02-2020 End: 08-25-2023 take 1 tablet by mouth once daily Pantoprazole 40 mg tablet,delayed release (DR/EC) Discontinued 40 MG PO Daily August 24, 2023 1:34pm August 25, 2023 2:48pm Start: 10-30-2017 take 1 tablet by nitin th every twelve hours Pantoprazole Sodium 40 MG 1 tablet Orally BID for 90 days October, Active ProAir HFA 108 (90 Base) MCG/ACT (1 source) Start: 10-09-2020 take 1 puff(s) by inhalation every four hours as needed ProAir HFA 108 (90 Base) MCG/ACT 1 puff as needed Inhalation every 4 hrs October, Active sildenafil 50 mg oral tablet (20 sources) Phosphodiesterase 5 Inhibitor Start: 08-13-2023 End: 01-12-2025 take 1 tablet by mouth once daily Sildenafil 50 mg tablet Active 50 MG PO Daily January 12, 2025 8:10am Complies with drug therapy Start: 03-19-2021 take 1 tablet by nitin th every twenty-four hours Sildenafil Citrate 50 MG 1 tablet as needed Orally Once a day for 30 days Mar, Active Completed/Discontinued Medications Medication Drug Class(es) Dates Sig (Normalized) Sig (Original) acetaminophen 325 mg / oxyCODONE hydrochloride 5 mg oral tablet (1 source) Opioid Agonist Start: 11-15-2024 End: 11-15-2024 take 1 tablet by mouth every twenty-four hours 1 tablet, Oral, ONCE, 1 dose, On Thu11/15/24 at 2130, Maximum dose of acetaminophen is 4000 mg from all sources in 24 hours. azithromycin 250 mg oral tablet (20 sources) Macrolide Antimicrobial Start: 05-04-2024 End: 01-26-2025 Azithromycin (Zithromax Z-Pravin) 250 mg tablet Discontinued 0 PO .COMPLEX January 09, 2025 12:00am January 26, 2025 3:07pm For 250 mg dose pack: take 500 mg today (day 1), then 250 mg for 4 days (days 2-5) PO Start: 09-28-2023 End: 04-20-2024 Azithromycin (Zithromax Z-Pa k) 250 mg tablet Discontinued 0 PO .COMPLEX February 09, 2024 12:00am April 20, 2024 9:10am For 250 mg dose pack: take 500 mg today (day 1), then 250 mg for 4 days (days 2-5) PO Start: 07-01-2022 Zithromax Z-Pa k 250 MG as directed Orally as directed Jun, Active Start: 05-07-2022 Zithromax Z-Pa k 250 MG as directed Orally Apr, Active Start: 06-14-2021 take 2 tablets by mo [facility] once daily, then take 1 tablet by [...] day(s) Feb, Active 12 hr buPROPion hydrochloride 150 mg extended release oral tablet (20 sources) Aminoketone Start: 08-13-2023 End: 04-20-2024 take 1 tablet by mouth once daily Bupropion Hcl 150 mg tablet sustained-release 12 hr Discontinued 150 MG PO Daily August 13, 2023 1:00am April 20, 2024 9:10am FreeTextSi tablet Orally Once a day; Provider: Ronald Badillo Start: 07-30-2017 End: 09-23-2024 take 1 tablet by mouth once daily Bupropion Hcl 200 mg tablet sustained-release 12 hr Discontinued 200 MG PO Daily September 24, 2023 8:07am March 28, 2024 3:02pm take 2 tablets by mo [facility] once daily buPROPion (WELLBUTRIN) 100 MG tablet Take 2 tablets by mouth daily Active 2 ml ketorolac tromethamine 30 mg/ml cartridge (20 sources) Nonsteroidal Anti-inflammatory Drug, Cyclooxygenase Inhibitor Start: 09-24-2020 End: 09-24-2020 ketorolac (TORADOL) injection 60 mg Start: 07-19-2013 Toradol per 15 mg Jul, 2 mL Start: 02-02-2013 Toradol per 15 mg Jan, 2ml levocetirizine dihydrochloride 5 mg oral tablet (20 sources) Histamine-1 Receptor Antagonist Start: 10-10-2021 End: 10-20-2024 take 1 tablet by mouth at bedtime Levocetirizine 5 mg tablet Discontinued 5 MG PO Bedtime July 25, 2022 1:00am October 08, 2023 4:41pm lisinopril 20 mg oral tablet (20 sources) Angiotensin Converting Enzyme Inhibitor Start: 07-05-2019 End: 03-18-2024 take 1 tablet by mouth once daily Lisinopril 20 mg tablet Discontinued 20 MG PO Daily May 02, 2020 1:00am March 18, 2024 8:12am meloxicam 15 mg oral tablet (20 sources) Nonsteroidal Anti-inflammatory Drug Start: 03-13-2022 End: 11-11-2024 take 1 tablet by mouth once daily Meloxicam 15 mg tablet Discontinued 15 MG PO Daily August 13, 2023 4:40pm November 04, 2023 1:06pm methylPREDNISolone 4 mg oral tablet (20 sources) Corticosteroid Start: 01-09-2025 End: 01-26-2025 take 1 tablet by mouth once Methylprednisolone (Medrol (Pravin)) 4 mg tablets,dose pack Discontinued 0 PO per package directions January 09, 2025 12:00am January 26, 2025 3:08pm PO PER PKG DIR Start: 02-09-2024 End: 04-20-2024 take 1 tablet by mouth once Methylprednisolone (Medrol (Pravin)) 4 mg tablets,dose pack Discontinued 0 PO per package directions February 09, 2024 12:00am April 20, 2024 9:12am PO PER PKG DIR Start: 05-07-2022 Medrol 4 MG as directed Orally Apr, Active Start: 11-19-2021 Medrol 4 MG as directed Orally Nov, Active Start: 06-14-2021 Medrol 4 MG as directed Orally Jun, Active Start: 02-22-2021 Medrol 4 MG as directed Orally Feb, Active Start: 03-16-2014 SOLU-MEDROL UP TO 40 mg Mar, 1 mL montelukast 10 mg oral tablet (20 sources) Leukotriene Receptor Antagonist Start: 10-10-2021 End: 04-20-2024 take 1 tablet by mouth once daily at bedtime Montelukast (Singulair) 10 mg Tablet Discontinued 10 MG PO Daily at bedtime July 25, 2022 1:00am November 04, 2023 1:06pm ondansetron 4 mg disintegrating oral tablet (20 sources) Serotonin-3 Receptor Antagonist Start: 01-14-2021 End: 04-20-2024 take 1 tablet by mouth every eight hours as needed for nausea and vomiting Ondansetron 4 mg tablet,disintegrat ing Discontinued 4 MG PO Q8H as needed for nausea and vomiting 9 January 14, 2021 12:00am April 20, 2024 9:12am predniSONE 20 mg oral tablet (13 sources) Start: 05-04-2024 End: 01-26-2025 Prednisone 20 mg tablet Discontinued 20 MG PO .COMPLEX 15 May 04, 2024 1:00am January 26, 2025 3:08pm 20 mg orally BID x 5 days , QD x 5 days; Start: 09-28-2023 End: 04-20-2024 Prednisone 20 mg tablet Disc ontinued 20 MG PO As Directed December 22, 2023 3:23pm April 20, 2024 9:12am BID x 5 days then daily x 5 days Start: 07-01-2022 predniSONE 20 MG 1 tablet Orally TID for 3 days, BID for 3 days, then Daily for 3 days Jun, Active triamcinolone acetonide 40 mg/ml injectable suspension (12 sources) Corticosteroid Start: 04-08-2022 Kenalog-40 Apr, 120 mg Problems Active Problems Problem Classification Problem Date Documented Da te Episodic/Chronic Allergic reactions (20 sources) Eczema; Translations: [Dermatitis, unspecified] 08-13-2023 Episodic Anxiety disorders (20 sources) Anxiety; Translations: [...] and giddiness] Episodic Diabetes mellitus without complication (20 sources) Hyperglycemia; Translations: [Hyperglycemia, unspecified] Onset: 2 Resolved: 2 Episodic Diseases of white blood cells (18 sources) Neutropenia; Translations: [Neutropenia, unspecified] Onset: 2 Resolved: 2 Chronic Disorders of lipid metabolism (20 sources) Hyperlipidemia; Translations: [Hyperlipidemia, unspecified] Onset: 2 Resolved: 2 Chronic E Codes: Fall (3 sources) Unspecified fall, initial encounter; Translations: [Accidental fall ] Onset: 2 Resolved: 2 Episodic Esophageal disorders (20 sources) Gastroesophageal reflux disease; Translations: [Gastro-esophageal reflux disease without esophagitis] Onset: 1 Resolved: 2 Chronic Essential hypertension (20 sources) Essential hypertension; Translations: [Essential (primary) hypertension] Onset: 1 Resolved: 2 Chronic Genitourinary symptoms and ill-defined conditions (1 source) Increased frequency of urination; Translations: [Frequency of micturition] 01-26-2025 Episodic Hemorrhoids (3 sources) Hemorrhoids; Translations: [Unspecified hemorrhoids] 08-13-2023 Episodic Mood disorders (20 sources) Major depressive disorder, [...] pain; Translations: [Other chest pain] Episodic Osteoarthritis (10 sources) Primary osteoarthritis, left ankle and foot; [...] in appetite; Translations: [Anorexia] 01-14-2021 Episodic Other screening for suspected conditions (not mental disorders or infectious disease) (11 sources) Encounter for screening for malignant neoplasm of prostate; Translations: [Encounter for screening for malignant neoplasm of colon] Onset: 2 Resolved: 2 Episodic Other upper respiratory disease (20 sources) Seasonal allergy; Translations: [Other seasonal allergic rhinitis] 08-13-2023 Chronic Other upper respiratory disease (1 source) Other seasonal allergic rhinitis Onset: 2 Resolved: 2 Chronic Other upper respiratory infections (10 sources) Acute sinusitis; Translations: [Acute sinusitis, unspecified] Episodic Spondylosis; intervertebral disc disorders; other back problems (20 sources) Low back pain; Translations: [Low back pain] Episodic Sprains and strains (2 sources) Sprain of left ankle; Translations: [Sprain of unspecified ligament of left ankle, initial encounter] Onset: 5 11-15-2024 Episodic Past or Other Problems Problem Classification Problem Date Documented Date Episodic/Chronic Chronic kidney disease (1 source) Chronic kidney disease Other lower respiratory disease (1 source) Other forms of dyspnea Onset: 02-13-2022 Resolved: 02-13-2022 Episodic Residual codes; unclassified (3 sources) History of operative procedure on foot; Translations: [Other specified postprocedural states] Onset: 06-08-2022 08-13-2023 Episodic Comment on above: 3 screws placed in l ateral left ankle Residual codes; unclassified (3 sources) History of colonoscopy; Translations: [Other specified postprocedural states] Onset: 06-08-2022 08-13-2023 Episodic Comment on above: 2007 Unclassified (1 source) Acute left-sided low back pain without sciatica M54.50 Onset: 01-27-2022 Resolved: 01-27-2022 Results Test Name Value Interpretation Reference Range Facility XR ANKLE LEFT (MIN 3 VIEWS)o n 11-15-2024 XR ANKLE LEFT (MIN 3 VIEWS) XR ANKLE LEFT (MIN 3 VIEWS) CLINICAL HISTORY:Slipped off stepstool, pain to the lateral ankle and cannot weight-bear, history of ankle surgery with hardware 3 screws. TECHNIQUE:3 views of the left ankle. COMPARISON:None. FINDINGS: No acute fracture or dislocation is identified. Fixation screws transverse the calcaneus. The talar dome is intact. No soft tissue abnormality is present. The bone mineralization is age appropriate. IMPRESSION: No acute fracture or subluxation. Interpreted by: Timothy Pelaez Signed by: Timothy Pelaez 11/15/24 Final result Normal [facility] XR Ankle - left 3 Viewson No acute fracture or subluxation. [facility] XR ANKLE LEFT (MIN 3 VIEWS) CLINICAL HISTORY:Slipped off stepstool, pain to the lateral ankle and cannot weight-bear, history of ankle surgery with hardware 3 screws. TECHNIQUE:3 views of the left ankle. COMPARISON:None. FINDINGS: No acute fracture or dislocation is identified. Fixation screws transverse the calcaneus. The talar dome is intact. No soft tissue abnormality is present. The bone mineralization is age appropriate. [facility] Timothy Pelaez - 11/15/2024 XR ANKLE LEFT (MIN 3 VIEWS) CLINICAL HISTORY:Slipped off stepstool, pain to the lateral ankle and cannot weight-bear, history of ankle surgery with hardware 3 screws. TECHNIQUE:3 views of the left ankle. COMPARISON:None. FINDINGS: No acute fracture or dislocation is identified. Fixation screws transverse the calcaneus. The talar dome is intact. No soft tissue abnormality is present. The bone mineralization is age appropriate. IMPRESSION: No acute fracture or subluxation. [facility] Radiology Study observation (narrative) [facility] XR Ankle - left 3 ViewsOrder ed By: [facility]iology on 11-15-2024 [facility] FPG ECG *PCP OFFICE ONLY*on 04-20-2024 FPG ECG *PCP OFFICE ONLY* [facility] [place] [address] [place] [address] Electrocardiograph Report Signed Patient: Silas La MR#: [id number] 2 : 1965 Acct:[id number] Age/Sex: 58 / M ADM Date: 04/20/24 Loc: EKGCAST Room: Type: [facility] CLI Attending Dr: James Kuns DO Ordering Provider: James Grace DO Date of Service: 04/20/24 ECG/FPG ECG *PCP OFFICE ONLY*: Z00.00 - Encounter for general adult medical examination ... Copies to: Test Reason : Blood Pressure : */* mmHG Vent. Rate : 75 BPM Atrial Rate : 75 BPM P-R Int : 152 ms QRS Dur : 98 ms QT Int : 376 ms P-R-T Axes : 73 47 73 degrees QTcB Int : 419 ms Normal sinus rhythm Poor R-wave progression ; consider septal infarct, lead placement, or normal variant Abnormal ECG When compared with ECG of 14-Jan-2021 14:43, No significant change was found Confirmed by Riaz Elder ([id number]) on 04/21/2024 2:03:03 PM Referred By: Electronically Signed By: Riaz Elder Transcribed By: MUS Signed By Riaz Elder MD 04/21/24 1403 Normal [facility] Basophils Auto (Bld) [#/Vol] on 03-15-2024 Basophils (Bld) [#/Vol] Automated basoph il count 0.0-0.1 [facility] Basophils/100 WBC Auto (Bld) on 03-15-2024 Basophils/100 WBC (Bld) Automated basophil % 0. 2-2.0 [facility] Cholesterol in LDL Calc [Mas s/Vol]on 03-15-2024 Cholesterol in LDL [Mass/Vol] Cholesterol in LDL [Mass/volume] in Serum or Plasma by calculation [facility] Comment on above: <100 mg/dl [id number] 0-129 mg/dl NEAR OR ABOVE [id number] mg/dl BORDERLINE [id number] mg/dl HIGH>190 mg/dl VERY HIGH Cholesterol in VLDL Calc [Ma ss/Vol]on 03-15-2024 Cholesterol in VLDL [Mass/Vol] Cholesterol in VLDL [Mass/volume] in Serum or Plasma by calculation [facility] Eosinophils/100 WBC Auto (Bl d)on 03-15-2024 Eosinophils/100 WBC (Bld) Automated eosinophil % 0.9-7.0 [facility] Erythrocyte distribution wid th Auto (RBC) [Ratio]on 03-15-2024 Erythrocyte distribution width (RBC) [Ratio] Erythrocyte distribution width [Ratio] by Automated count 11.0-15.0 [facility] Estimated glomerular filtrat ion rate (GFR) non- Americanon 03-15-2024 GFR/1.73 sq M.predicted among non-blacks MDRD (S/P/Bld) [Vol rate/Area] Estimated glomerular filtration rate (GFR) non- >=60 mL/min/1.73 m 2 [facility] Globulin Calc (S) [Mass/Vol] on 03-15-2024 Globulin (S) [Mass/Vol] Serum globulin measurement by calculation (mass/volume) [facility] Hematocrit Auto (Bld) [Volum e fraction]on 03-15-2024 Hematocrit (Bld) [Volume fraction] Hematocrit [Volume Fraction] of Blood by Automated count 42.0-54.0 [facility] Hemoglobin [Mass/volume] in Bloodon 03-15-2024 Hemoglobin (Bld) [Mass/Vol] Hemoglobin [Mass/volume] in Blood 14.0-18.0 [facility] Laboratory - Chemistry and C hemistry - challengeon 03-15-2024 Albumin [Mass/Vol] 3.5 g/dL 3.4-5.0 [facility] ALP [Catalytic activity/Vol] 111 U/L 46-116 [facility] ALT [Catalytic activity/Vol] 47 U/L 16-63 [facility] AST [Catalytic activity/Vol] 29 U/L 15-37 [facility] Bilirubin [Mass/Vol] 0.4 mg/dL 0.2-1.0 [facility] Calcium [Mass/Vol] 9.6 mg/dL 8.5-10.1 [facility] Chloride [Moles/Vol] 104 mmol/L 98-107 [facility] Cholesterol [Mass/Vol] 183 mg/dL <=200 [facility] Cholesterol in HDL [Mass/Vol] 40 mg/dL 40-60 [facility] Comment on above: > or =60 mg/dl - LOW CARDIOVASCULAR RISK<40 mg/dl - HIGH CARDIOVASCULAR RISK CO2 [Moles/Vol] 22.2 mmol/L 21.0-32.0 [facility] Creatinine [Mass/Vol] 1.18 mg/dL 0.70-1.30 [facility] GFR/1.73 sq M.predicted MDRD (S/P/Bld) [Vol rate/Area] mL/min/{1.73_m2} >=60 mL/min/1.73 m 2 [facility] Glucose [Mass/Vol] 102 mg/dL 74-106 [facility] Potassium [Moles/Vol] 4.0 mmol/L 3.5-5.1 [facility] Protein [Mass/Vol] 6.8 g/dL 6.4-8.2 [facility] Sodium [Moles/Vol] 138 mmol/L 136-145 [facility] Triglyceride [Mass/Vol] 278 mg/dL High <=150 [facility] TSH Qn 2.582 m[IU]/L 0.358-3.740 [facility] Urea nitrogen [Mass/Vol] 22.0 mg/dL High 7.0-18.0 [facility] Urea nitrogen/Creatinine [Mass ratio] 18.6 mg/mg [facility] Laboratory - Hematology and Cell countson 03-15-2024 Immature granulocytes/100 WBC (Bld) 0.3 % 0.0-0.5 [facility] Leukocytes [#/volume] correc rachell for nucleated erythrocytes in Blood by Automated counon 03-15-2024 WBC corrected for nucl RBC Auto (Bld) [#/Vol] Leukocytes [#/volume] corrected for nucleated erythrocytes in Blood by Automated coun 4.0-11.0 [facility] Lymphocytes Auto (Bld) [#/Vo l]on 03-15-2024 Lymphocytes (Bld) [#/Vol] Lymphocytes [#/volume] in Blood by Automated count 1.2-3.8 [facility] Lymphocytes/100 WBC Auto (Bl d)on 03-15-2024 Lymphocytes/100 WBC (Bld) Lymphocytes/100 leukocytes in Blood by Automated count 20.5-60.0 [facility] MCH Auto (RBC) [Entitic mass ]on 03-15-2024 MCH (RBC) [Entitic mass] MCH [Entitic mass] by Automated count 25.9-34.0 [facility] MCHC Auto (RBC) [Mass/Vol]on 03-15-2024 MCHC (RBC) [Mass/Vol] MCHC [Mass/volume] by Automated count 29.9-35.2 [facility] MCV Auto (RBC) [Entitic vol] on 03-15-2024 MCV (RBC) [Entitic vol] MCV [Entitic vol ume] by Automated count 80.0-94.0 [facility] Monocytes Auto (Bld) [#/Vol] on 03-15-2024 Monocytes (Bld) [#/Vol] Automated blood monocyte count 0.3-0.8 [facility] Monocytes/100 WBC Auto (Bld) on 03-15-2024 Monocytes/100 WBC (Bld) Automated monocyte % 1. 7-12.0 [facility] Neutrophils Auto (Bld) [#/Vo l]on 03-15-2024 Neutrophils (Bld) [#/Vol] Neutrophils [#/volume] in Blood by Automated count 1.4-6.5 [facility] Neutrophils/100 WBC Auto (Bl d)on 03-15-2024 Neutrophils/100 WBC (Bld) Automated neutrophil % 43.0-75.0 [facility] No Panel Informationon 03-15 Eosinophils # (Auto) 0.3 10 3/uL 0.0-0.7 [facility] Immature Granulocyte # (Auto) 0.02 10 3/uL 0.00-0.03 [facility] Prostate Specific Antigen Screen 1.07 ng/mL <=4.00 [facility] Platelet mean volume Auto (B ld) [Entitic vol]on 03-15-2024 Platelet mean volume (Bld) [Entitic vol] Platelet mean volume [Entitic volume] in Blood by Automated count 9.5-13.5 [facility] Platelets Auto (Bld) [#/Vol] on 03-15-2024 Platelets (Bld) [#/Vol] Platelets [#/vol ume] in Blood by Automated count 150-450 [facility] RBC Auto (Bld) [#/Vol]on RBC (Bld) [#/Vol] Erythrocytes [#/volume] in Blood by Automated count 4.70-6.10 [facility] Serum or plasma albumin/glob ulin mass ratioon 03-15-2024 Albumin/Globulin [Mass ratio] Serum or plasma albumin/globulin mass ratio [facility] Serum or plasma anion gap de terminationon 03-15-2024 Anion gap [Moles/Vol] Serum or plasma an ion gap determination [facility] Serum or plasma total choles terol/high density lipoprotein (HDL) cholesterol mass tamiko 03-15-2024 Cholesterol.total/Josi sterol in HDL [Mass ratio] Serum or plasma total cholesterol/high density lipoprotein (HDL) cholesterol mass rat [facility] Comment on above: 3.3 - 4.4 LOW RISK4. 4 - 7.1 AVERAGE RISK7.1 - 11.0 MODERATE RISK>11.0 HIGH RISK A1C HEMOGLOBINon 12-18-2022 HbA1c (Bld) [Mass fraction] 5.4 % [facility] Other HbA1c (Bld) [Mass fraction]o n 12-18-2022 A1C HEMOGLOBIN [facility] Other CT FOOT LT WO CONon 08-04-[address] FOOT LT WO CON EXAMINATION: CT [...] by: LUIZA PELLETIER Date: 2022-08-04 06:56 Normal [facility] A1C HEMOGLOBINon 02-13-2022 HbA1c (Bld) [Mass fraction] 5.5 % [facility] Other HbA1c (Bld) [Mass fraction]o n 02-13-2022 A1C HEMOGLOBIN [facility] Other CBC AUTO DIFFon 12-16-2021 BASO # 0.0 103/ul Normal 0.0-0.1 [facility] Comment on above: Performed By: #### C BC #### [facility] [address] [address] [address] Emmie Esquivel Basophils/100 WBC (Bld) 0.5 % Normal 0.2-2.0 [facility] Comment on above: Performed By: #### C BC #### [facility] [address] [address] [address] Emmie Esquivel EO # 0.3 103/ul Normal 0.0-0.7 [facility] Comment on above: Performed By: #### C BC #### [facility] [address] [place] [address] Dr. Emmie Esquivel Eosinophils/100 WBC (Bld) 5.1 % Normal 0.9-7.0 [facility] Comment on above: Performed By: #### C BC #### [facility] [address] [place] [address] Dr. Emmie Esquivel Erythrocyte distribution width (RBC) [Ratio] 14.2 % Normal 11.0-15.0 [facility] Comment on above: Performed By: #### C BC #### [facility] [address] [place] [address] Dr. Emmie Esquivel Hematocrit (Bld) [Volume fraction] 42.2 % Normal 42.0-54.0 [facility] Comment on above: Performed By: #### C BC #### [facility] [address] [place] [address] Dr. Emmie Esquivel Hemoglobin (Bld) [Mass/Vol] 14.0 g/dL Normal 14.0-18.0 [facility] Comment on above: Performed By: #### C BC #### [facility] [address] [place] [address] Dr. Emmie Esquivel IG # 0.01 10e3/ul Normal 0.00-0.03 [facility] Comment on above: Performed By: #### C BC #### [facility] [address] [place] [address] Dr. Emmie Esquivel IG % 0.2 % Normal 0.0-0.5 [facility] Comment on above: Performed By: #### C BC #### [facility] [address] [place] [address] Dr. Emmie Esquivel LYMPH # 2.5 103/ul Normal 1.2-3.8 [facility] Comment on above: Performed By: #### C BC #### [facility] [address] [place] [address] Dr. Emmie Esquivel Lymphocytes/100 WBC (Bld) 43.1 % Normal 20.5-60.0 [facility] Comment on above: Performed By: #### C BC #### [facility] [address] [place] [address] Dr. Emmie Esquivel MANUAL DIFF REQ NO Normal [facility] Comment on above: Performed By: #### C BC #### [facility] [address] [place] [address] Dr. Emmie Esquivel MCH (RBC) [Entitic mass] 28.6 pg Normal 25.9-34.0 [facility] Comment on above: Performed By: #### C BC #### [facility] [address] [place] [address] Dr. Emmie Esquivel MCHC (RBC) [Mass/Vol] 33.2 g/dL Normal 29.9-35.2 [facility] Comment on above: Performed By: #### C BC #### [facility] [address] [place] [address] Dr. Emmie Esquivel MCV (RBC) [Entitic vol] 86.3 fL Normal 80.0-94.0 [facility] Comment on above: Performed By: #### C BC #### [facility] [address] [place] [address] Dr. Emmie Esquivel MONO # 0.6 103/ul Normal 0.3-0.8 [facility] Comment on above: Performed By: #### C BC #### [facility] [address] [place] [address] Dr. Emmie Esquivel Monocytes/100 WBC (Bld) 9.9 % Normal 1.7-12.0 [facility] Comment on above: Performed By: #### C BC #### [facility] [address] [place] [address] Dr. Emmie Esquivel NEUT # 2.3 103/ul Normal 1.4-6.5 [facility] Comment on above: Performed By: #### C BC #### [facility] [address] [place] [address] Dr. Emmie Esquivel Neutrophils/100 WBC (Bld) 41.2 % Critically low 43.0-75.0 [facility] Comment on above: Performed By: #### C BC #### [facility] [address] [place] [address] Dr. Emmie Esquivel Platelet mean volume (Bld) [Entitic vol] 9.4 fL Critically low 9.5-13.5 [facility] Comment on above: Performed By: #### C BC #### [facility] [address] [place] [address] Dr. Emmie Esquivel PLT 262 103/ul Normal 150-450 [facility] Comment on above: Performed By: #### C BC #### [facility] [address] [place] [address] Dr. Emmie Esquivel RBC 4.89 106/ul Normal 4.70-6.10 [facility] Comment on above: Performed By: #### C BC #### [facility] [address] [place] [address] Dr. Emmie Esquivel WBC 5.7 103/ul Normal 4.0-11.0 [facility] Comment on above: Performed By: #### C BC #### [facility] [address] [place] [address] Dr. Emmie Esquivel LIPID PROFILEon 12-16-2021 CHOL-HDL RATIO NORM SEE BELOW Normal [facility] Comment on above: Result Comment: 3.3 - 4.4 LOW RISK 4.4 - 7.1 AVERAGE RISK 7.1 - 11.0 MODERATE RISK >11.0 HIGH RISK Performed By: #### L IPID, TSH, CMP #### [facility] [address] [address] [address] Emmie Esquivel Cholesterol [Mass/Vol] 170 mg/dL Normal <=200 Th [facility] Comment on above: Performed By: #### L IPID, TSH, CMP #### [facility] [address] [address] [address] Emmie Esquivel Cholesterol in HDL [Mass/Vol] 34 mg/dL Critically low 40-60 [facility] Comment on above: Performed By: #### L IPID, TSH, CMP #### [facility] [address] [address] [address] Emmie Esquivel Cholesterol in LDL [Mass/Vol] 87.0 mg/dL Normal [facility] Comment on above: Performed By: #### L IPID, TSH, CMP #### [facility] [address] [address] [address] Emmie Esquivel Cholesterol.total/Josi sterol in HDL [Mass ratio] 5.0 {ratio} Normal [facility] Comment on above: Performed By: #### L IPID, TSH, CMP #### [facility] [address] [address] [address] Emmie Esquivel HDL NORMAL > or = 60 mg/dl - LO W CARDIOVASCULAR RISK <40 mg/dl - HIGH CARDIOVASCULAR RISK Normal [facility] Comment on above: Performed By: #### L IPID, TSH, CMP #### [facility] [address] [address] [address] Emmie Esquivel LDL CALC NORMAL SEE BELOW Normal [facility] Comment on above: Result Comment: <100 mg/dl OPTIMAL 100 - 129 mg/dl NEAR OR ABOVE OPTIMAL 130 - 159 mg/dl BORDERLINE HIGH 160 - 189 mg/dl HIGH >190 mg/dl VERY HIGH Performed By: #### L IPID, TSH, CMP #### [facility] [address] [address] [address] Emmie Esquivel Triglyceride [Mass/Vol] 245 mg/dL Critically high <=150 [facility] Comment on above: Performed By: #### L IPID, TSH, CMP #### [facility] [address] [address] [address] Emmie Esquivel VLDL CALC 49.0 mg/dL Normal [facility] Comment on above: Performed By: #### L IPID, TSH, CMP #### [facility] [address] [address] [address] Emmie Esquivel PROF 14(COMP METB)on 022 Albumin [Mass/Vol] 3.5 g/dL Normal 3.4-5.0 [facility] Comment on above: Performed By: #### L IPID, TSH, CMP #### [facility] [address] [address] [address] Emmie Esquivel Albumin/Globulin [Mass ratio] 1.0 {ratio} Normal [facility] Comment on above: Performed By: #### L IPID, TSH, CMP #### [facility] [address] [place] [address] Dr. Emmie Esquivel ALP [Catalytic activity/Vol] 92 U/L Normal 46-116 [facility] Comment on above: Performed By: #### L IPID, TSH, CMP #### [facility] [address] [address] [address] Emmie Esquivel ALT [Catalytic activity/Vol] 46 U/L Normal 16-63 [facility] Comment on above: Performed By: #### L IPID, TSH, CMP #### [facility] [address] [address] [address] Emmie Esquivel Anion gap [Moles/Vol] 12.5 mmol/L Normal [facility] Comment on above: Performed By: #### L IPID, TSH, CMP #### [facility] [address] [address] [address] Emmie Esquivel AST [Catalytic activity/Vol] 21 U/L Normal 15-37 [facility] Comment on above: Performed By: #### L IPID, TSH, CMP #### [facility] [address] [address] [address] Emmie Esquivel Bilirubin [Mass/Vol] 0.5 mg/dL Normal 0.2-1.0 [facility] Comment on above: Performed By: #### L IPID, TSH, CMP #### [facility] [address] [address] [address] Emmie Esquivel Calcium [Mass/Vol] 9.0 mg/dL Normal 8.5-10.1 [facility] Comment on above: Performed By: #### L IPID, TSH, CMP #### [facility] [address] [place] [address] Dr. Emmie Esquivel Chloride [Moles/Vol] 106 mmol/L Normal 98-107 [facility] Comment on above: Performed By: #### L IPID, TSH, CMP #### [facility] [address] [place] [address] Dr. Emmie Esquivel CO2 [Moles/Vol] 25.4 mmol/L Normal 21.0-32.0 [facility] Comment on above: Performed By: #### L IPID, TSH, CMP #### [facility] [address] [place] [address] Dr. Emmie Esquivel Creatinine [Mass/Vol] 1.39 mg/dL Critically high 0.70-1.30 [facility] Comment on above: Performed By: #### L IPID, TSH, CMP #### [facility] [address] [place] [address] Dr. Emmie Esquivel EGFR-AF COMORAN >60 Normal >=60 [facility] Comment on above: Performed By: #### L IPID, TSH, CMP #### [facility] [address] [place] [address] Dr. Emmie Esquivel EGFR-NON AF COMORAN 53 mL/min/1.73m2 Critically low >=60 [facility] Comment on above: Performed By: #### L IPID, TSH, CMP #### [facility] [address] [place] [address] Dr. Emmie Esquivel Globulin (S) [Mass/Vol] 3.5 g/dL Normal T [facility] Comment on above: Performed By: #### L IPID, TSH, CMP #### [facility] [address] [place] [address] Dr. Emmie Esquivel Glucose [Mass/Vol] 109 mg/dL Critically high 74-106 [facility] Comment on above: Performed By: #### L IPID, TSH, CMP #### [facility] [address] [place] [address] Dr. Emmie Esquivel Potassium [Moles/Vol] 3.9 mmol/L Normal 3.5-5.1 [facility] Comment on above: Performed By: #### L IPID, TSH, CMP #### [facility] [address] [place] [address] Dr. Emmie Esquivel Protein [Mass/Vol] 7.0 g/dL Normal 6.4-8.2 [facility] Comment on above: Performed By: #### L IPID, TSH, CMP #### [facility] [address] [place] [address] Dr. Emmie Esquivel Sodium [Moles/Vol] 140 mmol/L Normal 136-145 [facility] Comment on above: Performed By: #### L IPID, TSH, CMP #### [facility] [address] [place] [address] Dr. Emmie Esquivel Urea nitrogen [Mass/Vol] 21.0 mg/dL Critically high 7.0-18.0 [facility] Comment on above: Performed By: #### L IPID, TSH, CMP #### [facility] [address] [place] [address] Dr. Emmie Esquivel Urea nitrogen/Creatinine [Mass ratio] 15.1 mg/mg Normal [facility] Comment on above: Performed By: #### L IPID, TSH, CMP #### [facility] [address] [place] [address] Dr. Emmie Esquivel TSHon 12-16-2021 TSH 2.276 uIU/mL Normal 0.358-3.740 [facility] Comment on above: Performed By: #### L IPID, TSH, CMP #### [facility] [address] [place] [address] Dr. Emmie Esquivel ARTERIAL BLOOD GASon 021 SAMANTHA'S TEST Positive Normal [facility] Comment on above: Performed By: #### P ABGA #### Testing performed at [id number] BASE DEFICIT 2.1 mEq/L High 0-2 [facility] Comment on above: Performed By: #### P ABGA #### Testing performed at [address] [id number] cHCO3 (P,ST)C 21.8 mEq/L Low 22-26 [facility] Comment on above: Performed By: #### P ABGA #### [place] [address] ctCO2 (B)c 18.8 Vol% [facility] Comment on above: Performed By: #### P ABGA #### [place] [address] ctHb 15.3 g/dl [facility] Comment on above: Performed By: #### P ABGA #### [place] [address] FCOHb 1.2 % [facility] Comment on above: Performed By: #### P ABGA #### [place] [address] FMetHb 0.5 % [facility] Comment on above: Performed By: #### P ABGA #### [place] [address] FO2Hb 95.3 % [facility] Comment on above: Performed By: #### P ABGA #### Testing performed at [address] [id number] NOTES: 0923 TECH 220 [facility] Comment on above: Result Comment: Test ing performed at [address] [address] Performed By: #### P ABGA #### [place] [address] PATIENT DIAGNOSIS SOB [facility] Comment on above: Performed By: #### P ABGA #### [place] [address] PATIENT O2 SETTINGS ROOM AIR Normal [facility] Comment on above: Performed By: #### P ABGA #### Testing performed at [address] [id number] pCO2, arterial 36.6 mmHg Normal 35-[address] [facility] Comment on above: Performed By: #### P ABGA #### [place] [address] pH, arterial 7.390 Normal 7.35-7.45 [facility] Comment on above: Performed By: #### P ABGA #### [place] [address] pO2,arterial 83.0 mmHg Normal 80-100 [facility] Comment on above: Performed By: #### P ABGA #### [place] [address] SAMPLE SITE RIGHT RADIAL Normal [facility] Comment on above: Performed By: #### P ABGA #### [place] [address] sO2,arterial 97.0 % Normal 95-100 [facility] Comment on above: Performed By: #### P ABGA #### [place] [address] B TYPE NATRIURETIC PEPTIDEon 09-24-2020 Natriuretic peptide B (Bld) [Mass/Vol] 10 pg/mL Normal 0-100 [facility] Comment on above: Result Comment: Test ing performed at [address] [address] Performed By: #### C MPF, BNP, ACBC #### [place] [address] B-TYPE NATRIURETIC PEPTIDE ( BRAIN)Ordered By: Jorge Ruiz on 09-24-2020 Natriuretic peptide B (Bld) [Mass/Vol] 10 pg/mL 0 - 100 pg/mL [facility] Comment on above: Testing performed at [address] BLOOD GAS, ARTERIALOrdered B y: Jorge Ruiz on 09-24-2020 Arterial patency Wrist artery --pre arterial puncture Positive [facility] Base deficit (BldV) [Moles/Vol] 2.1 High [facility] Carbon dioxide/Gas.total.at end expiration in Exhaled gas 18.8 Vol% [facility] Carboxyhemoglobin (Bld) [Mass fraction] 1.2 % [facility] CO2 (Bld) [Partial pressure] 36.6 mm[Hg] [facility] Diagnosis Narrative SOB [facility] HCO3 (Bld) [Moles/Vol] 21.8 mmol/L Low [facility] Hemoglobin (Bld) [Mass/Vol] 15.3 g/dL [facility] Interpretation and review of laboratory results Abnormal [facility] Methemoglobin (BldC) [Mass fraction] 0.5 % [facility] NOTE 0923 TECH 220 [facility] [employer] Comment on above: Testing performed at [address] [place] [address] Oxygen (Bld) [Partial pressure] ROOM AIR [facility] Oxygen (Bld) [Partial pressure] 83.0 mm[Hg] [facility] Oxyhemoglobin (Bld) [Mass fraction] 95.3 % [facility] pH (Bld) 7.390 [pH] [facility] Specimen site Narrative RIGHT RADIAL [facility] CBCon 09-24-2020 ABSOLUTE BAS 0.1 10*3/uL Normal 0.0-0.2 [facility] Comment on above: Result Comment: Test ing performed at [address] [place] [id number] Performed By: #### C MPF, BNP, ACBC #### Testing performed at [address] [address] ABSOLUTE EOS 0.10 10*3/uL Normal 0.0-0.[address] [facility] Comment on above: Performed By: #### C MPF, BNP, ACBC #### Testing performed at [place] [id number] ABSOLUTE NEUTROPHIL COUNT 4.5 10*3/uL Normal 1.4-6.5 [facility] Comment on above: Performed By: #### C MPF, BNP, ACBC #### Testing performed at [address] [address] Basophils/100 WBC (Bld) 0.8 % Normal 0.0-2.0 [facility] Comment on above: Performed By: #### C MPF, BNP, ACBC #### Testing performed at [address] [address] DTYPE AUTO DIFF Normal [facility] Comment on above: Performed By: #### C MPF, BNP, ACBC #### Testing performed at [address] [address] Eosinophils/100 WBC (Bld) 0.8 % Normal 0.0-11.0 [facility] Comment on above: Performed By: #### C MPF, BNP, ACBC #### Testing performed at [address] [address] Lymphocytes (Bld) [#/Vol] 1.70 10*3/uL Normal 1.2-3.4 [facility] Comment on above: Performed By: #### C MPF, BNP, ACBC #### Testing performed at [address] [address] Lymphocytes/100 WBC (Bld) 25.8 % Normal 20.0-55.0 [facility] Comment on above: Performed By: #### C MPF, BNP, ACBC #### Testing performed at [address] [address] Monocytes (Bld) [#/Vol] 0.4 10*3/uL Normal 0.0-0.7 [facility] Comment on above: Performed By: #### C MPF, BNP, ACBC #### Testing performed at [address] [address] Monocytes/100 WBC (Bld) 5.8 % Normal 0.0-10.0 [facility] Comment on above: Performed By: #### C MPF, BNP, ACBC #### Testing performed at [address] [address] Neutrophils/100 WBC (Bld) 66.8 % Normal 37.0-75.0 [facility] Comment on above: Performed By: #### C MPF, BNP, ACBC #### [place] [address] Erythrocyte distribution width (RBC) [Ratio] 13.2 % Normal 11.5-14.5 [facility] Comment on above: Performed By: #### C MPF, BNP, ACBC #### [place] [address] Hematocrit (Bld) [Volume fraction] 43.5 % Normal 42.0-52.0 [facility] Comment on above: Performed By: #### C MPF, BNP, ACBC #### [place] [address] Hemoglobin (Bld) [Mass/Vol] 15.0 g/dL Normal 14.0-18.0 [facility] Comment on above: Performed By: #### C MPF, BNP, ACBC #### Testing performed at [place] [id number] MCH (RBC) [Entitic mass] 29.6 pg Normal 26.0-35.0 [facility] Comment on above: Performed By: #### C MPF, BNP, ACBC #### Testing performed at [place] [id number] MCHC (RBC) [Mass/Vol] 34.4 g/dL Normal 27.0-37.0 [facility] Comment on above: Performed By: #### C MPF, BNP, ACBC #### Testing performed at [place] [id number] MCV (RBC) [Entitic vol] 86.2 fL Normal 80.0-100.0 [facility] Comment on above: Performed By: #### C MPF, BNP, ACBC #### Testing performed at [place] [id number] Platelet mean volume (Bld) [Entitic vol] 7.9 fL Normal 7.4-11.0 [facility] Comment on above: Result Comment: Test ing performed at [place] [address] Performed By: #### C MPF, BNP, ACBC #### [place] [address] Platelets (Bld) [#/Vol] 288 10*3/uL Normal 130.0-400.0 [facility] Comment on above: Performed By: #### C MPF, BNP, ACBC #### [place] [address] RBC (Bld) [#/Vol] 5.05 10*6/uL Normal 4.0-6.1 [facility] Comment on above: Performed By: #### C MPF, BNP, ACBC #### [place] [address] WBC (Bld) [#/Vol] 6.7 10*3/uL Normal 3.6-11.0 [facility] Comment on above: Performed By: #### C MPF, BNP, ACBC #### [place] [address] CBC, EDIF, PLATELETOrdered B y: Jorge Ruiz on 09-24-2020 ABSOLUTE BASOPHIL COUNT 0.1 10*3/uL 0.0 - 0.2 10*3/uL [facility] Comment on above: Testing performed at [place] [address] Basophils/100 WBC (Bld) 0.8 % 0.0 - 2.0 % [facility] Differential cell count method Nom (Bld) AUTO DIFF % [facility] Eosinophils (Bld) [#/Vol] 0.10 10*3/uL 0.0 - 0.7 10*3/uL [facility] Eosinophils/100 WBC (Bld) 0.8 % 0.0 - 11.0 % [facility] Erythrocyte distribution width (RBC) [Ratio] 13.2 % 11.5 - 14.5 % [facility] Hematocrit (Bld) [Volume fraction] 43.5 % 42.0 - 52.0 % [facility] Hemoglobin (Bld) [Mass/Vol] 15.0 g/dL [facility] Lymphocytes (Bld) [#/Vol] 1.70 10*3/uL 1.2 - 3.4 10*3/uL [facility] Lymphocytes/100 WBC (Bld) 25.8 % 20.0 - 55.0 % [facility] MCH (RBC) [Entitic mass] 29.6 pg 26.0 - 35.0 PG [facility] MCHC (RBC) [Mass/Vol] 34.4 g/dL [facility] MCV (RBC) [Entitic vol] 86.2 fL A [facility] Monocytes (Bld) [#/Vol] 0.4 10*3/uL 0.0 - 0.7 10*3/uL [facility] Monocytes/100 WBC (Bld) 5.8 % 0.0 - 10.0 % [facility] Neutrophils (Bld) [#/Vol] 4.5 10*3/uL 1.4 - 6.5 10*3/uL [facility] Neutrophils/100 WBC (Bld) 66.8 % 37.0 - 75.0 % [facility] Platelet mean volume (Bld) [Entitic vol] 7.9 fL [facility] Platelets (Bld) [#/Vol] 288 10*3/uL 130. 0 - 400.0 10*3/uL [facility] RBC (Bld) [#/Vol] 5.05 10*6/uL 4.0 - 6.1 10*6/uL [facility] WBC (Bld) [#/Vol] 6.7 10*3/uL 3.6 - 11.0 10*3/uL [facility] CMP FASTINGon 09-24-2020 A:G RATIO 1.4 RATIO Normal 1.3-2.2 [facility] Comment on above: Performed By: #### C MPF, BNP, ACBC #### Testing performed at [address] [address] ALBUMIN 4.3 G/dl Normal 3.5-5.0 [facility] Comment on above: Performed By: #### C MPF, BNP, ACBC #### Testing performed at [address] [address] ALP [Catalytic activity/Vol] 106 U/L Normal 38-126 [facility] Comment on above: Performed By: #### C MPF, BNP, ACBC #### Testing performed at [address] [address] ALT [Catalytic activity/Vol] 30 U/L Normal <50 [facility] Comment on above: Performed By: #### C MPF, BNP, ACBC #### Testing performed at [address] [address] AST [Catalytic activity/Vol] 30 U/L Normal 17-59 [facility] Comment on above: Performed By: #### C MPF, BNP, ACBC #### Testing performed at [address] [address] Bilirubin [Mass/Vol] 0.3 mg/dL Normal 0.2-1.3 [facility] Comment on above: Performed By: #### C MPF, BNP, ACBC #### Testing performed at [address] [address] [address] Calcium [Mass/Vol] 9.7 mg/dL Normal 8.4-10.2 [facility] Comment on above: Performed By: #### C MPF, BNP, ACBC #### Testing performed at [address] [address] Chloride [Moles/Vol] 102 mmol/L Normal 98-107 [facility] Comment on above: Result Comment: Dyllan fuentes note: Triglyceride levels of 600mg/dL or higher may positively bias chloride results by approximately 2.1 mmol Performed By: #### C MPF, BNP, ACBC #### Testing performed at [address] [address] CO2 [Moles/Vol] 23 mmol/L Normal 22-30 [facility] Comment on above: Performed By: #### C MPF, BNP, ACBC #### Testing performed at [address] [address] Creatinine [Mass/Vol] 1.10 mg/dL Normal 0.7-1.2 [facility] Comment on above: Performed By: #### C MPF, BNP, ACBC #### [place] [address] EST. GFR, >60 Normal [facility] Comment on above: Performed By: #### C MPF, BNP, ACBC #### [place] [address] EST. GFR,Non >60 Normal [facility] Comment on above: Performed By: #### C MPF, BNP, ACBC #### [place] [address] GFR Information Average GFR for 50-5 9 years old = 93. Normal [facility] Comment on above: Result Comment: Clinical Consultant brent Kidney disease, GFR = <60. Kidney failure, GFR = <15. The GFR estimate is not adjusted for extreme body surface area or acute process, nor has it been validated for women or ethnic groups other than and . Testing performed at [place] [address] Performed By: #### C MPF, BNP, ACBC #### [place] [address] Glucose [Mass/Vol] 112 mg/dL High 70-100 [facility] Comment on above: Result Comment: NORMAL <100 mg/dL PREDIABETES 101-126 mg/dL DIABETES 126 mg/dL or higher Performed By: #### C MPF, BNP, ACBC #### [place] [address] Potassium [Moles/Vol] 4.0 mmol/L Normal 3.5-5.1 [facility] Comment on above: Performed By: #### C MPF, BNP, ACBC #### [place] [address] Protein [Mass/Vol] 7.4 g/dL Normal 6.3-8.2 [facility] Comment on above: Performed By: #### C MPF, BNP, ACBC #### Testing performed at [facility] [address] [place] [address] Sodium [Moles/Vol] 131 mmol/L Low 137-145 [facility] Comment on above: Performed By: #### C MPF, BNP, ACBC #### Testing performed at [facility] [address] [place] [address] Urea nitrogen [Mass/Vol] 19 mg/dL Normal 7-20 [facility] Comment on above: Performed By: #### C MPF, BNP, ACBC #### Testing performed at [facility] [address] [place] [address] COMPREHENSIVE METABOLIC PANE LOrdered By: Jorge Ruiz on 09-24-2020 Albumin [Mass/Vol] 4.3 G/dl 3.5 - 5.0 G/dl [facility] Albumin/Globulin [Mass ratio] 1.4 {ratio} [facility] ALP [Catalytic activity/Vol] 106 U/L [facility] ALT [Catalytic activity/Vol] 30 U/L <50 IU/L [facility] AST [Catalytic activity/Vol] 30 U/L [facility] Bilirubin [Mass/Vol] 0.3 mg/dL [facility] Calcium [Mass/Vol] 9.7 mg/dL [facility] Chloride [Moles/Vol] 102 mmol/L [facility] Comment on above: Please note: Triglyc eride levels of 600mg/dL or higher may positively bias chloride results by approximately 2.1 mmol CO2 [Moles/Vol] 23 mmol/L [facility] Creatinine [Mass/Vol] 1.10 mg/dL [facility] GFR COMMENT Average GFR for 50-5 9 years old = 93. [facility] Comment on above: Chronic Kidney disea se, GFR = <60. Kidney failure, GFR = <15. The GFR estimate is not adjusted for extreme body surface area or acute process, nor has it been validated for women or ethnic groups other than and . Testing performed at [place], [place] [address] GFR/1.73 sq M.predicted among blacks MDRD (S/P/Bld) [Vol rate/Area] mL/min/{1.73_m2} ml/min/1.73 sq.m [facility] GFR/1.73 sq M.predicted among non-blacks MDRD (S/P/Bld) [Vol rate/Area] mL/min/{1.73_m2} ml/min/1.73 sq.m [facility] Glucose post fast [Mass/Vol] 112 mg/dL High [facility] Comment on above: NORMAL <100 mg/dL PREDIABETES 101-126 mg/dL DIABETES 126 mg/dL or higher Interpretation and review of laboratory results Abnormal [facility] Potassium [Moles/Vol] 4.0 mmol/L [facility] Protein [Mass/Vol] 7.4 g/dL [facility] Sodium [Moles/Vol] 131 mmol/L Low [facility] Urea nitrogen [Mass/Vol] 19 mg/dL [facility] NOVEL CORONAVIRUSon 09-25-19 21 NARRATIVE This test was performed using isothermal SYLVESTER and has been approved as Emergency Use Authorization (EUA) for the qualitative detection [id number] nucleic acid. Normal [facility] Comment on above: Result Comment: Test ing performed at [place] [address] Performed By: #### C OVID #### [place] [address] SARS-CoV-2 (COVID-19) RNA SYLVESTER+probe Ql (Unsp spec) Not detected Normal NOT DETECTED [facility] Comment on above: Result Comment: Nega tive [...] #### C OVID #### [place] [address] NOVEL CORONAVIRUS LAB 1 - NA SOPHARYNGEALOrdered By: Jorge Ruiz on 09-24-2020 NARRATIVE -1 This test was performed using isothermal SYLVESTER and has been approved as Emergency Use Authorization (EUA) for the qualitative detection soMJVS-[id number] nucleic acid. [facility] Comment on above: Testing performed at [place] [id number] SARS-CoV-2 (COVID-19) RNA SYLVESTER+probe Ql (Unsp spec) Not detected NOT DETECTED [facility] Comment on above: Negative results do [...] patient is critically ill or clinically deteriorating. [facility] TROPONIN I, HIGH SENSITIVITY on 09-24-2020 TROPONIN I, HIGH SENSITIVITY 3 pg/mL Normal 0-20 [facility] Comment on above: Result Comment: Indeterminant: >12 to 100 pg/mL female >20 to 100 pg/mL male Indicative of myocardial injury. Serial sampling is recommended, a change of greater than or equal to 20 pg/mL is indicative of acute coronary syndrome. Testing performed at [place] [address] Performed By: #### T ROHS #### Testing performed at [address] [address] TROPONIN I, HIGH SENSITIVITY 3 pg/mL Normal 0-20 [facility] Comment on above: Result Comment: Indeterminant: >12 to 100 pg/mL female >20 to 100 pg/mL male Indicative of myocardial injury. Serial sampling is recommended, a change of greater than or equal to 20 pg/mL is indicative of acute coronary syndrome. Testing performed at [place] [address] Performed By: #### T ROHS #### Testing performed at [place] [id number] TROPONIN I, HIGH SENSITIVITY Ordered By: Jorge Ruiz on 09-24-2020 TROPONIN I, HIGH SENSITIVITY 3 pg/mL 0 - 20 pg/mL [facility] Comment on above: Indeterminant: >12 to 100 pg/mL female >20 to 100 pg/mL male Indicative of myocardial injury. Serial sampling is recommended, a change of greater than or equal to 20 pg/mL is indicative of acute coronary syndrome. Testing performed at [place] [id number] [facility] TROPONIN I, HIGH SENSITIVITY 3 pg/mL 0 - 20 pg/mL [facility] Comment on above: Indeterminant: >12 to 100 pg/mL female >20 to 100 pg/mL male Indicative of myocardial injury. Serial sampling is recommended, a change of greater than or equal to 20 pg/mL is indicative of acute coronary syndrome. Testing performed at [address] URINALYSIS, MACROOrdered By: Jorge Ruiz on 09-24-2020 Bilirubin Ql (U) Negative NEGATIVE [facility] Clarity (U) CLEAR CLEAR [facility] Color (U) YELLOW YELLOW [facility] Glucose Test strip (U) [Mass/Vol] Negative NEGATIVE mg/dl [facility] Hemoglobin Ql (U) Negative NEGATIVE [facility] Ketones (U) [Mass/Vol] Negative NEGAT ABDOUL mg/dl [facility] Leukocyte esterase Test strip Ql (U) Negative NEGATIVE [facility] Comment on above: Testing performed at [place] [address] Nitrite Ql (U) Negative NEGATIVE [facility] pH (U) 5.5 [pH] [facility] Protein Ql (U) Negative NEGATIVE mg/dl [facility] Specific gravity (U) [Rel density] 1.020 [facility] Urobilinogen (U) [Mass/Vol] 0.2 mg/dL [facility] URINE MACROSCOPICon 09-25-19 21 Bilirubin Ql (U) Negative Normal NEGATIVE [facility] Comment on above: Performed By: #### U MAC #### [place] [address] Clarity (U) CLEAR Normal CLEAR [facility] Comment on above: Performed By: #### U MAC #### [place] [address] Color (U) YELLOW Normal YELLOW [facility] Comment on above: Performed By: #### U MAC #### [place] [address] Glucose Ql (U) Negative Normal NEGATIVE [facility] Comment on above: Performed By: #### U MAC #### [place] [address] pH (U) 5.5 [pH] Normal 5.0-7.0 [facility] Comment on above: Performed By: #### U MAC #### [place] [address] URINE HEMOGLOBIN Negative Normal NEGATIVE [facility] Comment on above: Performed By: #### U MAC #### [place] [address] URINE KETONE Negative Normal NEGATIVE [facility] Comment on above: Performed By: #### U MAC #### [place] [address] URINE LEUKOTEST Negative Normal NEGATIVE [facility] Comment on above: Result Comment: Test ing performed at [place] [address] Performed By: #### U MAC #### [place] [address] URINE NITRATES Negative Normal NEGATIVE [facility] Comment on above: Performed By: #### U MAC #### [place] [address] URINE SPEC GRAVITY 1.020 Normal 1.010-1.025 [facility] Comment on above: Performed By: #### U MAC #### [place] [address] URINE TOTAL PROTEIN Negative Normal NEGATIVE [facility] Comment on above: Performed By: #### U MAC #### [place] [address] Urobilinogen Qn (U) 0.2 {Mando'U}/dL Normal 0.2-1.0 [facility] Comment on above: Performed By: #### U [facility] #### Testing performed at [address] [address] XR CHEST AP PORTABLEon 09-24 XR CHEST [...] nonemergent standard PA and lateral chest. Normal [facility] XR CHEST AP PORTABLEOrdered By: Jorge Ruiz on 09-24-2020 IMPRESSION: No focal airspace consolidation or other acute cardiopulmonary abnormality. Slight increased density in the right suprahilar region likely related to positioning. Recommend attention on followup nonemergent standard PA and lateral chest. [employer] EXAM: XR CHEST AP PORTABLE HISTORY: Chest [...] Mild degenerative changes noted in the spine. [employer] System User, Interfaces - 09/24/2020 10:20 AM EDT [...] followup nonemergent standard PA and lateral chest. [facility] Lab Miscellaneouson 01-11-20 17 Status See Ref Lab Report Normal [facility] Comment on above: Performed By: #### 1 [id number] ####[facility] [address] [place] [address] VALERY w/Reflex if POSon 2016 Nuclear antibody (VALERY) presence Negative Invalid Interpretation Code Negative [facility] Comment on above: Result Comment: Perf ormed at: [facility] [id number] [place], [place] [id number] PhD Nicolas Cespedes Performed By: #### 2 061600, [id number], 9109952, 53693225, 4701572, 03439227, 71443516 ####[facility] [address] [place] [address] Coding Summary.on 01-08-2017 Coding Summary. 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 [...] Spencer Date Saved: 01/08/2017 12:44 pm Normal [facility] RF Quanton 01-08-2017 Rheumatoid factor [IU]/mL Invalid Interpretation Code 0.0-13.9 [facility] Comment on above: Result Comment: Perf ormed at: [facility] [address] [place], [place] [id number] PhD Nicolas Cespedes Performed By: #### 2 886571, 86232418, 9825747, 90895331, 7990373, 12378798, 50522109 ####[facility] [address] [place] [address] CBC w/Indiceson 01-07-2017 Erythrocyte distribution width Auto Ratio (RBC) 14.3 % High 10.9-14.2 [facility] Comment on above: Performed By: #### 2 091762, 99827504, 8323775, 15429028, 1019935, 97162112, 53189846 ####[facility] [address] [place] [address] Erythrocytes (RBC) 5.5 E12/L Normal 4.3-5.9 [facility] Comment on above: Performed By: #### 2 136239, 24842814, 0135159, 64110225, 6445291, 74865617, 84296672 ####[place] [address] [place] [address] Hematocrit (HCT) 47.9 % Normal 37.7-49.0 [facility] Comment on above: Performed By: #### 2 073744, 84274574, 8983090, 37618624, 6615514, 87106327, 47138924 ####[facility] [address] [place] [address] Hemoglobin mass conc (Bld) 16.0 g/dL Normal 13.5-17.5 [facility] Comment on above: Performed By: #### 2 121511, 89913876, 4613588, 07380806, 9839019, 64485104, 53997930 ####[place] [address] [place] [address] MCH 29.1 pg Normal 27.0-34.0 [facility] Comment on above: Performed By: #### 2 436656, 01680238, 5326339, 32816187, 1496755, 04665492, 97366142 ####[facility] [address] [place] [address] MCHC mass conc (RBC) 33.5 g/dL Normal 31.4-39.3 [facility] Comment on above: Performed By: #### 2 155034, 21251384, 8594938, 13251014, 9899222, 92364573, 81630035 ####[facility] [address] [place] [address] MCV 86.8 fL Normal 80.0-100.0 [facility] Comment on above: Performed By: #### 2 282336, 38133573, 9960609, 20444082, 6026446, 87243871, 16749133 ####[place] [address] [place] [address] Platelet mean volume (PMV) 8.2 fL Normal 6.4-10.8 [facility] Comment on above: Performed By: #### 2 562725, 10351379, 0727447, 77464885, 2923068, 10409337, 60062071 ####[address] [address] Platelets 285.0 E9/L Normal 150.0-500.0 [facility] Comment on above: Performed By: #### 2 198137, 62267666, 3254085, 88924771, 1443866, 46449082, 91409933 ####[address] [address] WBC (Leukocytes) 11.7 E9/L High 4.0-11.0 [facility] Comment on above: Performed By: #### 2 058766, 32583251, 1077654, 87244919, 1612286, 53179616, 03095307 ####[place] [address] [place] [address] CMPon 01-07-2017 Alanine aminotransferase (ALT) 40 Int._Unit/L Normal 6-46 [facility] Comment on above: Performed By: #### 2 722005, 92882438, 1843871, 67560456, 2216865, 60491380, 74479739 ####[place] [address] [place] [address] Albumin 1.4 g/dL Normal 1.1-2.2 [facility] Comment on above: Performed By: #### 2 644626, 08966126, 9171303, 78385583, 7536721, 10350563, 58841028 ####[facility] [address] [place] [address] Albumin 4.2 g/dL Normal 3.3-5.0 [facility] Comment on above: Performed By: #### 2 067467, 68665462, 6338796, 24702557, 2019036, 10365698, 78509560 ####[facility] [address] [place] [address] Alkaline phosphatase (ALP) 70 Int._Unit/L Normal 21-98 [facility] Comment on above: Performed By: #### 2 523069, 28731367, 5396983, 16891356, 7571566, 69400860, 07291864 ####[facility] [address] [place] [address] Anion gap 12 mmol/L Normal 6-16 [facility] Comment on above: Performed By: #### 2 696026, 93273962, 6946320, 29138540, 7960326, 31311277, 62829719 ####[facility] [address] [place] [address] Aspartate aminotransferase (AST) 31 Int._Unit/L Normal 5-43 [facility] Comment on above: Performed By: #### 2 968212, 75419144, 4597113, 13517234, 2088110, 62918864, 31677845 ####[facility] [address] [place] [address] Bilirubin (total) 0.7 mg/dL Normal 0.0-1.1 [facility] Comment on above: Performed By: #### 2 168653, 63709027, 2507589, 43348138, 2008864, 98026762, 92368376 ####[facility] [address] [place] [address] BUN/Creatinine Ratio 18 No Units Normal 10-20 [facility] Comment on above: Performed By: #### 2 591080, 58607832, 1234773, 03741866, 4411152, 61649458, 87380280 ####[facility] [address] [place] [address] Calcium 9.2 mg/dL Normal 8.9-11.1 [facility] Comment on above: Performed By: #### 2 755627, 27801267, 0487107, 98246111, 7359062, 70565084, 28386290 ####[facility] [address] [place] [address] Chloride 103 mmol/L Normal 101-111 [facility] Comment on above: Performed By: #### 2 989124, 59161345, 7278215, 55807878, 1619029, 62589265, 63545654 ####[facility] [address] [place] [address] CO2 24 mmol/L Normal 21-31 [facility] Comment on above: Performed By: #### 2 275415, 05662946, 2736004, 42945801, 8389220, 75461667, 50630105 ####[facility] [address] [place] [address] Creatinine 1.2 mg/dL Normal 0.5-1.3 [facility] Comment on above: Performed By: #### 2 692739, 12042944, 5776570, 57910001, 6248174, 25165845, 68698961 ####[facility] [address] [place] [address] Globulin 3.0 g/dL Normal 1.4-4.0 [facility] Comment on above: Performed By: #### 2 885351, 11796458, 6840886, 68079438, 8879028, 42912774, 41117379 ####[facility] [address] [place] [address] Glucose mass conc 93 mg/dL Normal 55-199 [facility] Comment on above: Result Comment: If t his glucose result represents a fasting glucose, interpretation should refer to the following reference range: 55-99 mg/dL Performed By: #### 2 887851, 46212304, 7944733, 90347505, 7672298, 80058012, 66258364 ####[facility] [address] [place] [address] Potassium molar conc 4.1 mmol/L Normal 3.5-5.3 [facility] Comment on above: Performed By: #### 2 725899, 06121106, 6215807, 01491938, 5159808, 14231699, 03908423 ####[facility] [address] [place] [address] Protein 7.2 g/dL Normal 6.0-7.8 [facility] Comment on above: Performed By: #### 2 384587, 16726621, 5019617, 35454765, 9857188, 76561816, 53104448 ####[facility] [address] [place] [address] Sodium 135 mmol/L Normal 135-145 [facility] Comment on above: Performed By: #### 2 085143, 45933177, 7793478, 89144342, 7486003, 89892687, 57636573 ####[facility] [address] [place] [address] Urea nitrogen 21 mg/dL Normal 5-21 [facility] Comment on above: Performed By: #### 2 009370, 99591991, 5715977, 42890367, 6041520, 57713758, 99239635 ####[facility] [address] [place] [address] Lab Miscellaneouson 01-08-20 17 Test Name CRP Invalid Interpretation Code [facility] Comment on above: Performed By: #### 1 [id number] ####[facility] [address] [place] [address] Sed Rate Automatedon 017 Erythrocyte sedimentation rate 7 mm/h Normal 0-19 [facility] Comment on above: Performed By: #### 2 760689, 79613096, 6759572, 95934660, 5780095, 81889504, 53204856 ####[facility] [address] [place] [address] Uric Acidon 01-07-2017 Urate 7.3 mg/dL Normal 2.2-7.4 [facility] Comment on above: Performed By: #### 2 436871, 62020101, 0552322, 85054217, 6312945, 54432234, 48931533 ####[facility] [address] [place] [address] eGFRon 01-07-2017 eGFR (black) mL/min/{1.73_m2} Normal >=59 [facility] Comment on above: Order Comment: Order added by Discern Expert. Result Comment: eGFR is race adjusted. AA=. Performed By: #### 2 006698, 16020737, 8594382, 60997292, 5997114, 07543053, 19866268 ####[facility] [address] [place] [address] eGFR (non-black) mL/min/{1.73_m2} Normal >=59 [place] Comment on above: Order Comment: Order added by Discern Expert. Result Comment: Clinical Consultant brent kidney disease could be indicated at eGFR's of less than 60 mL/min/1.73m2. Kidney failure is indicated at less than 15 mL/min/1.73m2. Performed By: #### 2 [address]60[address], 99961219, 5685050, 75011488, 5117041, 70596988, 41572614 ####[facility] [address] [place] [address] Coding Summary.on 01-01-2017 Coding Summary. 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 Transcribed by: geovanny Technologist: ANA Normal [facility] XR Foot 3+ Views Lefton 12-07 INR Coag RelTime (Bld) Exam Date/Time:12/31/2016 12:20 [...] M.D. Transcribed by: gino Technologist: ANA Arreaga [facility] Vital Signs Date Time Vital Sign Value Performing Clinician Facility 01-26-2025 15:06-0400 Body height 179.07 cm James Grace DO Work Phone: [facility] 01-26-2025 15:06-0400 Body mass index (BMI) [Ratio] 32.6 kg/m2 James Grace DO Work Phone: [facility] 01-26-2025 15:06-0400 Body weight 104.77 kg James Grace DO Work Phone: [facility] 01-26-2025 15:06-0400 Diastolic blood pressure 72 mm[Hg] James Grace DO Work Phone: [facility] 01-26-2025 15:06-0400 Heart rate 72 /min James Grace DO Work Phone: [facility] 01-26-2025 15:06-0400 Respiratory rate 16 /min James Grace DO Work Phone: [facility] 01-26-2025 15:06-0400 SaO2% (BldA) [Mass fraction] 98 % James Grace DO Work Phone: [facility] 01-26-2025 15:06-0400 Systolic blood pressure 120 mm[Hg] James Grace DO Work Phone: [facility] 11-15-2024 21:39-0400 Respiratory rate 19 /min Benson Nevarez MD Work Phone: [employer] 11-15-2024 20:28-0400 Body height 175.3 cm Benson Nevarez MD Work Phone: [facility] 11-15-2024 20:28-0400 Body mass index (BMI) [Ratio] 33.97 kg/m2 Benson Nevarez MD Work Phone: [facility] 11-15-2024 20:28-0400 Body weight 104.33 kg Benson Nevarez MD Work Phone: [facility] 11-15-2024 20:27-0400 Body temperature 99 [degF] Benson Nevarez MD Work Phone: [facility] 11-15-2024 20:27-0400 Diastolic blood pressure 88 mm[Hg] Benson Nevarez MD Work Phone: [facility] 11-15-2024 20:27-0400 Heart rate 80 /min Benson Nevarez MD Work Phone: [facility] 11-15-2024 20:27-0400 SaO2% (BldA) [Mass fraction] 96 % Benson Nevarez MD Work Phone: [facility] 11-15-2024 20:27-0400 Systolic blood pressure 161 mm[Hg] Benson Nevarez MD Work Phone: [facility] [employer] [facility] 04-20-2024 08:50-0500 Diastolic blood pressure 90 mm[Hg] James Grace DO Work Phone: [facility] 04-20-2024 08:50-0500 Systolic blood pressure 132 mm[Hg] James Grace DO Work Phone: [facility] 04-20-2024 07:49-0500 Body height 179.07 cm James Carmonas DO Work Phone: [facility] 04-20-2024 07:49-0500 Body mass index (BMI) [Ratio] 33.6 kg/m2 James Carmonas DO Work Phone: [facility] 04-20-2024 07:49-0500 Body weight 107.95 kg James Carmonas DO Work Phone: [facility] 04-20-2024 07:49-0500 Heart rate 78 /min James Carmonas DO Work Phone: [facility] 04-20-2024 07:49-0500 Respiratory rate 16 /min James Grace DO Work Phone: [facility] 04-20-2024 07:49-0500 SaO2% (BldA) [Mass fraction] 95 % James Ronald DO Work Phone: [facility] 12-18-2022 15:45-0400 Body height 178.44 cm James Grace Other [employer] Other 12-18-2022 15:45-0400 Body mass index (BMI) [Ratio] 33.68 kg/m2 James Grace Other [employer] Other 12-18-2022 15:45-0400 Body weight 107.23 kg James Grace Other [employer] Other 12-18-2022 15:45-0400 Diastolic blood pressure 70 mm[Hg] James Grace Other [employer] Other 12-18-2022 15:45-0400 Respiratory rate 16 /min James Grace Other [employer] Other 12-18-2022 15:45-0400 SaO2% (BldA) [Mass fraction] 98 % James Grace Other [employer] Other 12-18-2022 15:45-0400 Systolic blood pressure 114 mm[Hg] James Grace Other [employer] Other 07-25-2022 09:10-0500 Diastolic blood pressure 81 mm[Hg] DO James Kuns Work Phone: [facility] 07-25-2022 09:10-0500 Heart rate 80 /min DO James Sarahis Work Phone: [facility] 07-25-2022 09:10-0500 Respiratory rate 16 /min DO James Kuns Work Phone: [facility] 07-25-2022 09:10-0500 SaO2% (BldA) [Mass fraction] 96 % DO James Grace Work Phone: [facility] 07-25-2022 09:10-0500 Systolic blood pressure 122 mm[Hg] DO James Grace Work Phone: [facility] 07-25-2022 07:04-0500 Body height 175.26 cm DO James Grace Work Phone: [facility] 07-25-2022 07:04-0500 Body temperature 97.8 [degF] DO James Grace Work Phone: [facility] 07-25-2022 07:04-0500 Body weight 109.76 kg DO James Grace Work Phone: [facility] 06-26-2022 15:30-0500 Body height 178.44 cm James Grace Other [employer] [facility] [employer] Other 06-26-2022 15:30-0500 Body mass index (BMI) [Ratio] 34.47 kg/m2 James Grace Other [employer] Other 06-26-2022 15:30-0500 Body weight 109.77 kg James Grace Other [employer] Other 06-26-2022 15:30-0500 Diastolic blood pressure 70 mm[Hg] James Grace Other [employer] Other 06-26-2022 15:30-0500 Respiratory rate 16 /min James Grace Other [employer] Other 06-26-2022 15:30-0500 SaO2% (BldA) [Mass fraction] 92 % Jamescoral Carmonacayden Other [employer] Other 06-26-2022 15:30-0500 Systolic blood pressure 118 mm[Hg] James Ronald Other [employer] Other 04-08-2022 14:45-0400 Body height 178.44 cm Lucas Lexington II Other [employer] Other 04-08-2022 14:45-0400 Body mass index (BMI) [Ratio] 34.9 kg/m2 Lucas Lexington II Other [employer] Other 04-08-2022 14:45-0400 Body weight 111.13 kg Lucas Lion II Other [employer] Other 03-13-2022 16:00-0400 Body height 178.44 cm Lucas Lion II Other [employer] Other 03-13-2022 16:00-0400 Body mass index (BMI) [Ratio] 34.9 kg/m2 Lucas Lion II Other [employer] Other 03-13-2022 16:00-0400 Body weight 111.13 kg Lucas Lexington II Other [employer] Other 02-13-2022 16:45-0400 Body height 178.44 cm James Grace Other [employer] Other 02-13-2022 16:45-0400 Body mass index (BMI) [Ratio] 34.76 kg/m2 James Grace Other [employer] Other 02-13-2022 16:45-0400 Body weight 110.68 kg James Grace Other [employer] Other 02-13-2022 16:45-0400 Diastolic blood pressure 70 mm[Hg] Jamescoral Grace Other [employer] Other 02-13-2022 16:45-0400 Respiratory rate 16 /min James Grace Other [employer] Other 02-13-2022 16:45-0400 SaO2% (BldA) [Mass fraction] 94 % James Grace Other [employer] Other 02-13-2022 16:45-0400 Systolic blood pressure 112 mm[Hg] James Grace Other [employer] Other 10-10-2021 16:15-0400 Body height 178.44 cm James Grace Other [employer] Other 10-10-2021 16:15-0400 Body mass index (BMI) [Ratio] 34.19 kg/m2 James Ronald Other [employer] Other 10-10-2021 16:15-0400 Body weight 108.86 kg James Ronald Other [employer] Other 10-10-2021 16:15-0400 Diastolic blood pressure 68 mm[Hg] James Grace Other [employer] Other 10-10-2021 16:15-0400 Respiratory rate 16 /min James Grace Other [employer] Other 10-10-2021 16:15-0400 SaO2% (BldA) [Mass fraction] 98 % Jamescoral Carmonacayden Other [employer] Other 10-10-2021 16:15-0400 Systolic blood pressure 124 mm[Hg] James Ronald Other [employer] Other 05-23-2021 16:45-0500 Body height 178.44 cm James Grace Other [employer] Other 05-23-2021 16:45-0500 Body mass index (BMI) [Ratio] 32.76 kg/m2 James Grace Other [employer] Other 05-23-2021 16:45-0500 Body weight 104.33 kg James Grace Other [employer] Other 05-23-2021 16:45-0500 Diastolic blood pressure 80 mm[Hg] James Grace Other [employer] Other 05-23-2021 16:45-0500 Respiratory rate 16 /min James Grace Other [employer] Other 05-23-2021 16:45-0500 SaO2% (BldA) [Mass fraction] 93 % James Grace Other [employer] Other 05-23-2021 16:45-0500 Systolic blood pressure 106 mm[Hg] James Grace Other [employer] Other 03-18-2021 16:45-0400 Body height 178.44 cm James Grace Other [employer] Other 03-18-2021 16:45-0400 Body mass index (BMI) [Ratio] 32.19 kg/m2 James Grace Other [employer] Other 03-18-2021 16:45-0400 Body weight 102.51 kg James Grace Other [employer] Other 03-18-2021 16:45-0400 Diastolic blood pressure James Grace Other [employer] Other 03-18-2021 16:45-0400 Respiratory rate 16 /min James Grace Other [employer] Other 03-18-2021 16:45-0400 SaO2% (BldA) [Mass fraction] 98 % James Grace Other [employer] Other 03-18-2021 16:45-0400 Systolic blood pressure 115 mm[Hg] James Grace Other [employer] Other 09-24-2020 12:16-0400 Diastolic blood pressure 76 mm[Hg] Jorge Bercik DO Work Phone: [employer] 09-24-2020 12:16-0400 Heart rate 72 /min Jorge Bercik DO Work Phone: [employer] 09-24-2020 12:16-0400 Respiratory rate 15 /min Jorge Bercik DO Work Phone: [employer] 09-24-2020 12:16-0400 SaO2% (BldA) [Mass fraction] 99 % Jorge Bercik DO Work Phone: [employer] 09-24-2020 12:16-0400 Systolic blood pressure 124 mm[Hg] Jorge Bercik DO Work Phone: [facility] 09-24-2020 09:36-0400 SaO2% (BldA) [Mass fraction] 97.0 % Jorge Ruiz DO Work Phone: [facility] 09-24-2020 08:51-0400 Body height 175.3 cm Jorge Ruiz DO Work Phone: [facility] 09-24-2020 08:51-0400 Body mass index (BMI) [Ratio] 33.67 kg/m2 Jorge Ruiz DO Work Phone: [facility] 09-24-2020 08:51-0400 Body weight 103.42 kg Jorge Ruiz DO Work Phone: [facility] 09-24-2020 08:50-0400 Body temperature 97.39 [degF] Jorge Ruiz DO Work Phone: [facility] Encounters Encounter Date Encounter Type Care Provider Facility Start: 01-26-2025 End: 01-26-2025 ambulatory James Grace DO Work Phone: [facility] Work Phone: Start: 01-26-2025 End: 01-26-2025 Patient encounter procedure James Badillo DO -[facility] Work Phone: Start: 11-15-2024 End: 11-15-2024 Emergency department patient visit Benson Nevarez MD Work Phone: [facility] Emergency Department Comment on above: Sprain of left ankle , unspecified ligament, initial encounter (Primary Dx); Accidental fall, initial encounter Start: 04-20-2024 End: 04-20-2024 ambulatory James Grace DO Work Phone: [facility] Work Phone: Start: 04-20-2024 End: 04-20-2024 Encounter for general adult medical examination without abnormal findings James Grace DO Work Phone: [facility] Start: 04-20-2024 End: 04-20-2024 Patient encounter procedure James Grace DO Work Phone: [facility] Work Phone: Start: 04-20-2024 Patient encounter status James Grace DO Work Phone: [facility] Start: 03-18-2024 Non-patient / Non-visit James Grace DO Work Phone: [facility] Work Phone: Start: 03-15-2024 Non-patient / Non-visit James Grace DO Work Phone: [facility] Professional [employer] Work Phone: Start: 07-08-2023 End: 07-08-2023 Subsequent hospital visit by physician Phi Marino [employer] [facility] Comment on above: Arrived Start: 07-06-2023 End: 07-06-2023 Subsequent hospital visit by physician Phi Marino [employer] [facility] Start: 06-10-2023 End: 06-10-2023 Subsequent hospital visit by physician Grisel Reed PT [facility] Comment on above: Arrived Start: 06-09-2023 End: 06-09-2023 ambulatory James Ronald Other [employer] Other Start: 06-09-2023 [facility] Start: 01-26-2023 ambulatory RUBY YORK Faci lity:H1 Start: 01-12-2023 ambulatory RUBY DOLLANDER Faci lity:H1 Start: 12-18-2022 End: 12-18-2022 ambulatory Jamescoral Grace Other [employer] Other Start: 12-18-2022 Office outpatient visit 25 minutes James Grace [facility] Start: 10-08-2022 End: 10-08-2022 ambulatory Lucas Seymour II Other [employer] Other Start: 10-08-2022 Office outpatient visit 25 minutes Lucas Seymour II [facility] Start: 10-03-2022 End: 10-03-2022 ambulatory James Grace Other [employer] Other Start: 10-03-2022 Telephone encounter James Grace [facility] Start: 08-04-2022 End: 08-04-2022 ambulatory Max France Other [employer] Other Start: 08-04-2022 Telephone encounter Max Doan ck [facility] [employer] [facility] Start: 08-02-2022 End: 08-03-2022 ambulatory RUBY Herrera [facility] Facility:[facility] Start: 07-25-2022 End: 07-25-2022 Admission to same day surgery center DO James Grace Work Phone: [facility] Work Phone: Start: 07-25-2022 End: 07-25-2022 ambulatory DO James Grace Work Phone: [facility] Work Phone: Start: 07-14-2022 End: 07-14-2022 ambulatory James Grace Other [employer] Other Start: 07-14-2022 Telephone encounter James Grace [facility] Start: 07-09-2022 End: 07-10-2022 ambulatory RUBY Herrera [facility] Facility:[facility] Start: 07-01-2022 End: 07-01-2022 ambulatory James Grace Other [employer] Other Start: 07-01-2022 Telephone encounter James Grace [facility] Start: 06-26-2022 End: 06-26-2022 ambulatory James Grace Other [employer] Other Start: 06-26-2022 Office outpatient visit 25 minutes James Grace [facility] Start: 05-30-2022 End: 05-30-2022 Subsequent hospital visit by physician Phi Marino [employer] [facility] Start: 05-07-2022 End: 05-07-2022 ambulatory James Grace Other [employer] Other Start: 05-07-2022 Telephone encounter James Grace [facility] Start: 04-09-2022 End: 04-09-2022 ambulatory Max France Other [employer] Other Start: 04-09-2022 Telephone encounter Max Doan [facility]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 at Onset Recorded Date/T nancy father Heart disease Unknown Not Specified Heart disease Unknown Relationship Condition Age at Onset Recorded Date/T nancy father Heart disease Unknown Unknown Heart failure Unknown mother Heart disease Unknown Advance Directives Advance Directive Response Recorded Date/ Time Advance Directives No April 6:59am Advance Directive Response Recorded Date/ Time Advance Directives No April 5:59am Reason for Referral Status Reason Specialty Diagnoses / Procedures Referred By Contact Referred To Contact New Request Procedures ECG Jorge Ruiz, DO [address] [place] [address] Status Reason Specialty Diagnoses / Procedures Referred By Contact Referred To Contact Pending Review Procedures ECG Jorge Ruiz, DO [address] [place] [address] Reason consult and treat le ft hip pain 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 humeral head necrosis Diagnosis 1 Left hip pain (M25.5 52) Referral Organization [facility] Family Medicin e Dora Referring Provider First Name James Referring Provider Last Name Ronald Referring Provider Specialty Family Prac wiliam Referred Provider Lucas Seymour II Referred Provider Specialty Orthopedic S urgery Referral Priority Routine Reason screening colonoscop y also 3 year EGD check for Perez's Espohagus Diagnosis 1 Barretts esophagus ( K22.70) Diagnosis 2 Screening for colon cancer (Z12.11) Referral Organization [facility] Family Medicin e Dora Referring Provider First Name James Referring Provider Last Name Ronald Referring Provider Specialty Family Prac wiliam Referred Organization [facility] Gastroenterolo gy Referred Provider Ric Cooley Referred Address [address],[address] Referred Provider Specialty Gastroentero logy Referral Priority Routine Reason 07/09/22 @ 2:15pm consult and treat; ongoing left foot pain Diagnosis 1 Left foot pain (M79. 672) Referral Organization [facility] Family Medicin e Dora Referring Provider First Name James Referring Provider Last Name Ronald Referring Provider Specialty Family Prac wiliam Referred Organization Unknown Facility Referred Provider Ruby York Referred Provider Specialty Podiatry - S urgical Chiropody Referral Priority Routine Referral Appointment Date 2022-07-09 General Notes Fore, Jodi M 023 07:15:02 AM >Received today and fax [...] n behavior of skin (D48.5) Referral Organization [facility] Family Medicin e Dora Referring Provider First Name James Referring Provider Last Name Ronald Referring Provider Specialty Family Prac wiliam Referred Organization [facility] Referred Provider Noris Potter Referred Address [address] [facility], [place],[address] Referred Provider Specialty Dermatology Referral Priority Routine Referral Appointment Date 2022-08-04 General Notes Jodi Best 023 08:22:20 AM >Received today. [facility] request us to fill out their form and fax to them. They will review the referral and call patient to schedule them. Referral was fax Jodi Best 07/04/2022 09:06:02 AM >Spoke with Arabella at [facility] and patient has been scheduled for 08/04/22 @ 3:55pm Chief Complaint and Reason for Visit Chief Complaint M25.552 M54.50 M25.552 left hip pain Chief Complaint Perez's Esophagus, Screening Reason for Visit Barretts esophagus Chief Complaint Admit Date Amb Documentation March 18, 2024 8 :11am Wellness/review labs April 20, 2024 7:36am Reason for Visit Admit Date Essential hypertension April 20 7:36am Hyperglycemia April 20, 2024 7:36am Hyperlipidemia April 20, 2024 7:36am Screening for prostate cancer April 082023 7:36am Wellness examination April 20, 2024 7:36am Chief Complaint Admit Date Follow up BP January 26, 2025 2: 48pm Reason for Visit Admit Date Essential hypertension January 26, 2025 2:48pm Frequent urination January 26, 2025 2: 48pm Additional Source Comments (unrecognized sect ion and content) No Status Records FoundNo Status Records FoundNo Status Records FoundNo Status Records FoundNo Status Records Found INFORMATION SOURCE (unrecogn ized section and content) DATE CREATED AUTHOR 11/27/2017 Moshe Orlando [facility] DATE CREATED AUTHOR AUTHOR'S ORGANIZ ATION 10/02/2020 [facility] DATE CREATED AUTHOR AUTHOR'S ORGANIZ ATION 10/01/2022 [facility] DATE CREATED AUTHOR AUTHOR'S ORGANIZ ATION 05/07/2024 [facility] DATE CREATED AUTHOR AUTHOR'S ORGANIZ ATION 11/18/2024 [facility] Reason for Visit (unrecogniz ed section and content) Reason Comments Chest Pain pt states while sitt ing at his desk at work started having midsternal chest pain, dizziness and his palms were sweating. pt denies SOB and nausea. pt deneis radiation of pain. Reason Comments Ankle Pain Pt fell off a steppi ng stool and injured left ankle. Reports he had surgery on this ankle in 2022. Care Teams (unrecognized sec tion and content) Team Status: Active Member Role Status Dates James Grace DO Primary Care Provider Active Team Status: Inactive Member Role Status Dates James Grace DO Primary Care Provider Active Sta rt: January 26, 2025 End: January 26, 2025 James Grace DO Attending Provider Active Start: January 26, 2025 End: January 26, 2025 Team Status: Active Member Role Status Dates James Grace DO Primary Care Provider Active Team Status: Active Member Role Status Dates James Grace DO Primary Care Provide r, Attending Provider Active Start: March 15, 2024 Team Status: Active Member Role Status Dates James Grace DO Primary Care Provider Active Sta rt: March 18, 2024 LYNN Murrieta Attending Provider Active Start: March 18, 2024 Team Status: Active Member Role Status Dates James Grace DO Primary Care Provide r, Attending Provider Active Start: April 20, 2024 Team Status: Inactive Member Role Status Dates James Grace DO Primary Care Provide r, Attending Provider Active Start: April 20, 2024 End: April 20, 2024 Team Status: Inactive Member Role Status Dates James Kuns , DO Primary Care Provider Active Lucas Seymour II, MD Attending Provider Active Team Status: Inactive Member Role Status Dates James Grace DO Primary Care Provider, Attending Thai mir Active Team Status: Inactive Member Role Status Dates James Grace , Primary Care Provider Active Max France MD Attending Provider Active Team Status: Inactive Member Role Status Dates James Grace , Primary Care Provider Active Sta rt: January 26, 2025 End: January 26, 2025 James Grace DO Attending Provider Active Start: January 26, 2025 End: January 26, 2025 Goals (unrecognized section and content) Goals may be documented in a n alternate section Ordered Prescriptions (unrec ognized section and content) Prescription Sig Dispense Quantity Refills Last Filled Start Date End Date ibuprofen (ADVIL;MOTRIN) 800 MG tablet Take 1 tablet by mouth every 8 hours as needed for Pain 30 tablet 1 11/15/2024 Scheduled Active and Recently Administ ered Medications (unrecognized section and content) Medication Order 11/13/2024 11/14/2024 11/15/2024 oxyCODONE-acetaminophen (PERCOCET) 5-325 MG per tablet 1 tablet (COMPLETED) 1 tablet, Oral, ONCE, 1 dose, On Thu11/15/24 at 2130, Maximum dose of acetaminophen is 4000 mg from all sources in 24 hours. 213 (Given - Provid er: Ping Gaytan RN) FOR RECORDS PERTAINING TO PATIENTS WHO ARE [...] BE BASED ON THE PRIMARY CLINICAL RECORDS. [employer] provides no warranty or guarantee of the accuracy or completeness of information in this document.
[2025-02-23 06:57] LABS: Hematocrit 45.3 % (42.0-54.0); Hemoglobin 15.5 g/dL (14.0-18.0); Immature Granulocytes Abs Auto 0.00 10^3/uL (0.00-0.03); Immature Granulocytes Pct Auto 0.0 % (0.0-0.5); Lymphocytes Absolute Auto 2.4 10^3/uL (1.2-3.8); Mean Corpuscular HGB Conc 34.2 g/dL (29.9-35.2); Mean Corpuscular Hemoglobin 29.5 pg (25.9-34.0); Mean Corpuscular Volume 86.1 fL (80.0-94.0); Platelet Count 246 10^3/uL (150-450); Red Blood Count 5.26 10^6/uL (4.70-6.10); White Blood Count 5.9 10^3/uL (4.0-11.0)
== END 2025-02-23 06:41 | disposition home or self-care (01) ==
LOC: LAB 06:42
PROVIDERS: PCP Family Medicine; Visit Provider Ophthalmology
DX: Z01.812 Encounter for preprocedural laboratory examination (principal); H02.831 Dermatochalasis of right upper eyelid; H02.834 Dermatochalasis of left upper eyelid
CPT/HCPCS: 36415; 85025

== ENCOUNTER 2025-05-25 06:34 | Outpatient (OUT) | payer BC, SELFPAY ==
--- OUTSIDE RECORDS SUMMARY | 2024-01-08 04:00 | XMS_ITS ---
Author Organization [facility] Address [address] [place] [address] Care Team Providers Care Clinical Informatics Specialist Name Role Phone Tyson Connolly Unavailable [phone] Nilson Murphy Unavailable [phone] REASON FOR VISIT LUMBAR PAIN Social History Tobacco Use: Social History Observation Description Date Details (start date - stop date) Never Smoker NA - NA Smoking History Question Answer Notes Smoking Status NonSmoker AUDIT-C (Standard) Question Answer Notes Did you have a drink containing alcohol in the p ast year? Yes How often did you have six or more drinks on one occasion in the past year?Less than monthly (1 point)How many drinks did you have on a typical day when you were drinking in the past year?1 or 2 drinks (0 point)How often did you have a drink containing alcohol in the past year?Monthly or less (1 point) Encounters Encounter Location Date Provider Diagnosis [facility] Office [address] [place] [address] [address] [place] [address] 01/08/2024 Nilson Murphy Lumbar pain M54.50 Assessments Encounter Date Diagnosis (ICD Code) Assessment Notes Treatment Notes Treatment Clinical Notes Section Notes 01/08/2024 Lumbar pain (ICD-10 - M54.50) Plan Of Treatment Pending Test Test Name Order Date Lumbar spine, 4v flex ext - 25474 2023 Progress Notes * PERCY PARK HDOB:1965 (59 yo M)Acc No.[id number]:01/08/2024 Patient:?PERCY PARK :?Nilson Yañez MD, PhDDOB:1965 ???Age:58 Y???Sex:MaleDate:4Phone:[phone]:[address], [place], [id number] Subjective: * Chief Complaints: * 1 . LUMBAR PAIN. * HPI: ???General Info per Patient Report:?[facility] Questions?Height (ft):?5 ft,?Height (inches):?9 inches.? * ROS: ???Constitutional:?Fever?No.?Weight loss?No.?Fatigue?No. Headache?No.?Loss of Appetite?No.?Appetite Change?No.?Difficulty Sleeping?No.?Unexplained Weight Loss?No.?Marked Fatigue?No.?Ear/Nose/Throat:?Difficulty Swallowing?No.?Loss of Hearing?No. Hoarseness?No.?Ear pain?No.?Nose bleed?No.?Eyes:?Glasses/ Contacts?Yes.?Change in Vision?No.?Teeth:?Gum Trouble?No.?Gastrointestinal:?Bloody Stool?No.?Nausea/Vomiting?No.?Reflux Yes.?Stomach Pain/Ulcers?No.?Frequent Diarrhea?No.?Frequent Constipati on?No.?Hemorrhoids?No.?Uncontrolled Loss of Stool?No.?Heartburn/Acid S tomach?Yes.?Skin:?Frequent Rashes?No.?Frequent Itchiness?No.?Easy Bruising?No.?Swollen Ankles?No.?Musculoskeletal:?Joint Swelling?No.?Joint pain?No.?Joint stiffness?No.?Back Pain?No.?Joint Weakness?No.?Muscle Cramps?No. Muscle Weakness?No.?Neck Pain?No.?Cold Hands/Feet?No.?Hematologic:?Bleeding problem?No.?Anemia?No.?Bruising No.?Respiratory:?Shortness of Breath?No.?Morning Cough?No.?Productive Cough/Sputum?No.?Cardiovascular:?Heart or Chest Pain?No.?Abnormal Heart Beat?No. Leg Swelling?No.?Poor Heart Function?No.?Swelling of Feet?No.?Genitourinary:?Burning on Urination?No.?Incontinence?No.?Pelvic Pain?No.?Difficulty Starting to Urinate?No.?Urinate at Night More Than Once?No.?Unable to Completely Empty Bladder?No.?Neurological:?Numbness/ Tingling?No.?Seizures/ Epilepsy?No. Weakness/ Paralysis of Feet/Hands?No.?Memory loss?No.?Balance Problems?No.?Coordination Problems?No.?Tremors?No.?Dizziness?No.?Fainting&#1 60;No.?Blackouts/Fainting?No.?Headaches/Migraines?No.?Psychiatric:?Depression?Yes.?Anxiety?Yes.?Nervous Exhaust ion?No.?Paranoia?No.?Obsessive/Compulsive Behavior?No.? 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 Broken, loose, or chipped teeth, absess, gum disease?: Yes. * Family History: M other: Heart Trouble. F ather: Heart Trouble. * Social History: S moking History S moking Status N onSmoker. A DAVEY-C (Standard) D id you have a drink containing alcohol in the past year? Y es, H ow often did you have six or more drinks on one occasion in the past year? L ess than monthly (1 point), H ow many drinks did you have on a typical day when you were drinking in the past year? 1 or 2 drinks (0 point), H ow often did you have a drink containing alcohol in the past year? M onthly or less (1 point).? Objective: * Vitals: Assessment: * Assessment: 1.?Lumbar pain - M54.50 (Primary)??? Plan: * Treatment: ?Imaging: Lumbar spine, 4v flex ext - 19680 * Procedure Codes: 7 2109 X-ray Lumbar Spine, 5 view complete Forms: * Images: * Electronic signature of Nilson Murphy MD, PHD on 05/25/2025 at 06:36 AM EST Sign off status: Pending * Provider: Joshua Yañez MD, PhD Date: 0 01/08/2024 Generated for Printing/Faxing/eTransmitting on:?05/25/2025 06:36 AM EST History and Physical Notes * HPI (History of Present Illness) CategorySub-CategoryDetailNotesCategory NotesGeneral Info per Patient Report Eagle QuestionsHeight (ft):: 5 ftHeight (inches):: 9 inches
--- OUTSIDE RECORDS SUMMARY | 2024-04-13 10:30 | XMS_ITS ---
Author Organization The [facility] in [place] Address [address] [place] [address] Care Team Providers Care Fruit Worker Name Role Phone James Grace DO Primary Care Provider Alf Modi [facility] [phone] REASON FOR VISIT 8 week f/u Encounters Encounter Location Date Provider Diagnosis [facility] (PODIATRY) [address] [place] [address] [place] [address] 04/13/2024 Alf York Pain in left foot M79.672 and Right foot pain M79.671 Assessments Encounter Date Diagnosis (ICD Code) Assessment Notes Treatment Notes Treatment Clinical Notes Section Notes 04/13/2024 Pain in left foot (ICD-10 - M79. 672) 4Right foot pain (ICD-10 - M79.671) Plan Of Treatment Pending Test Test Name Order Date XR Foot LT (3 views) * 04/13/2024 Progress Notes * Silas LADOB:1965 ( 59 yo M)Acc No.[id number]:04/13/2024 UNLOCKED PROGRESS NOTE Follow Up Patient: Silas MCCONNELL :?Alf York DPM, MSDOB:1965???Age: 58 Y???Sex:MaleDate:4Phone:[phone]:[address] [facility]-[address]Vpm:James Grace DO Subjective: * Chief Complaints: * 1 . 8 week f/u. * Medical History: Objective: * Vitals: Assessment: * Assessment: 1.?Pain in left foot - M79.672???2.?Right foot pain - M79.671?? Plan: * Treatment: ?Imaging: XR Foot LT (3 views) *2.?Right foot pain?Imaging: XR Foot RT (3 views) * (Order Cancelled) * * Electronic signature of Alf York DPM on 05/25/2025 at 06:36 AM ESTSign off status: PendingVisit Status:?CANC (Cancelled) * Provider: Justino York DPM, MS Date: 1 06/13/2023 Generated for Printing/Faxing/eTransmitting on:?05/25/2025 06:36 AM EST
--- OUTSIDE RECORDS SUMMARY | 2024-04-20 10:45 | XMS_ITS ---
Author Organization The [facility] in [place] Address [address] [place] [address] Care Team Providers Care Machine Tester Name Role Phone James Grace DO Primary Care Provider Olya randy SirisharadhaAlf [phone] REASON FOR VISIT 8 week f/u Encounters Encounter Location Date Provider Diagnosis [facility] (PODIATRY) [address] [place] [address] [place] [address] 04/20/2024 Alf York Pain in left foot M79.672 Assessments Encounter Date Diagnosis (ICD Code) Assessment Notes Treatment Notes Treatment Clinical Notes Section Notes 04/20/2024 Pain in left foot (ICD-10 - M79. 672) Plan Of Treatment Pending Test Test Name Order Date XR Foot LT (3 views) * 04/20/2024 Progress Notes * Silas LADOB:1965 ( 59 yo M)Acc No.[id number]:04/20/2024 UNLOCKED PROGRESS NOTE Follow Up Patient: Silas MCCONNELL :?Alf York DPM, MSDOB:1965???Age: 58 Y???Sex:MaleDate:4Phone:[phone]:[address] [place], [place]Zir:James Grace DO Subjective: * Chief Complaints: * 1 . 8 week f/u. * Medical History: Objective: * Vitals: Assessment: * Assessment: 1.?Pain in left foot - M79.672??? Plan: * Treatment: ?Imaging: XR Foot LT (3 views) * * * Electronic signature of Alf York DPM on 05/25/2025 at 06:36 AM ESTSign off status: PendingVisit Status:?CANC (Cancelled) * Provider: Justino York DPM, MS Date: 06/20/2023 Generated for Printing/Faxing/eTransmitting on:?05/25/2025 06:36 AM EST
--- OUTSIDE RECORDS SUMMARY | 2024-04-26 10:45 | XMS_ITS ---
Author Organization The [facility] in [place] Address [address] [place] [address] Care Team Providers Care Entry Level Electrician Name Role Phone James Grace DO Primary Care Provider Alf Modi [phone] REASON FOR VISIT 8 week f/u, R/S from 04.20.2024 Encounters Encounter Location Date Provider Diagnosis [facility] (PODIATRY) [address] [place] [address] [place] [address] 04/26/2024 Alf York Pain in left foot M79.672 Assessments Encounter Date Diagnosis (ICD Code) Assessment Notes Treatment Notes Treatment Clinical Notes Section Notes 04/26/2024 Pain in left foot (ICD-10 - M79. 672) Plan Of Treatment Pending Test Test Name Order Date XR Foot LT (3 views) * 04/26/2024 Progress Notes * Silas LADOB:1965 ( 59 yo M)Acc No.[id number]:04/26/2024 UNLOCKED PROGRESS NOTE Follow Up Patient: Silas MCCONNELL :?Alf York DPM, MSDOB:1965???Age: 58 Y???Sex:MaleDate:4Phone:[phone]:[address] [place], [place]-[id number]:James Grace DO Subjective: * Chief Complaints: * 1 . 8 week f/u, R/S from 11.13.2024. * Medical History: Objective: * Vitals: Assessment: * Assessment: 1.?Pain in left foot - M79.672??? Plan: * Treatment: ?Imaging: XR Foot LT (3 views) * * * Electronic signature of Alf York DPM on 05/25/2025 at 06:36 AM ESTSign off status: PendingVisit Status:?CANC (Cancelled) * Provider: Justino York DPM, MS Date: 1 06/26/2023 Generated for Printing/Faxing/eTransmitting on:?05/25/2025 06:36 AM EST
--- OUTSIDE RECORDS SUMMARY | 2024-05-03 10:45 | XMS_ITS ---
Author Organization The [facility] in [place] Address [address] [place] [address] Care Team Providers Care Gutter Installer Name Role Phone James Grace DO Primary Care Provider Alf Modi [phone] Encounters Encounter Location Date Provider Diagnosis [facility] (PODIATRY) [address] [place] [address] [place] [address] 05/03/2024 Alf York Pain in left foot M79.672 Assessments Encounter Date Diagnosis (ICD Code) Assessment Notes Treatment Notes Treatment Clinical Notes Section Notes 05/03/2024 Pain in left foot (ICD-10 - M79. 672) Plan Of Treatment Pending Test Test Name Order Date XR Foot LT (3 views) * 05/03/2024 Progress Notes * Silas LADOB:1965 ( 59 yo M)Acc No.[id number]:05/03/2024 UNLOCKED PROGRESS NOTE Follow Up Patient: Silas MCCONNELL :?Alf York DPM, MSDOB:1965???Age: 58 Y???Sex:MaleDate:4Phone:[phone]:[address] [place], [place]Vdu:Roger Dudley Out:09:43 AM EST Subjective: * Chief Complaints: * * Medical History: Objective: * Vitals: Assessment: * Assessment: 1.?Pain in left foot - M79.672??? Plan: * Treatment: ?Imaging: XR Foot LT (3 views) * * * Electronic signature of Alf York DPM on 05/25/2025 at 06:37 AM ESTSign off status: PendingVisit Status:?CANC (Cancelled) * Provider: Justino York DPM, MS Date: 07/03/2023 Generated for Printing/Faxing/eTransmitting on:?05/25/2025 06:37 AM EST
--- OUTSIDE RECORDS SUMMARY | 2024-05-25 10:45 | XMS_ITS ---
Author Organization The [facility] in [place] Address [address] [place] [address] Care Team Providers Care Moccasin Sewer Name Role Phone James Grace DO Primary Care Provider Alf Modi [phone] Encounters Encounter Location Date Provider Diagnosis [facility] (PODIATRY) [address] [place] [address] [place] [address] 05/25/2024 Alf York Arthritis of left foot M19.072 Assessments Encounter Date Diagnosis (ICD Code) Assessment Notes Treatment Notes Treatment Clinical Notes Section Notes 05/25/2024 Arthritis of left foot (ICD-10 - M19.072) Plan Of Treatment Pending Test Test Name Order Date XR Foot LT (3 views) * 05/25/2024 Progress Notes * Silas LADOB:1965 ( 59 yo M)Acc No.[id number]:05/25/2024 UNLOCKED PROGRESS NOTE Follow Up Patient: Silas MCCONNELL :?Alf York DPM, MSDOB:1965???Age: 58 Y???Sex:MaleDate:4Phone:[phone]:[address] [place], [place]-[address]Olu:James Grace DO Subjective: * Chief Complaints: * * Medical History: Objective: * Vitals: Assessment: * Assessment: 1.?Arthritis of left foot - M19.072??? Plan: * Treatment: ?Imaging: XR Foot LT (3 views) * * * Electronic signature of Alf York DPM on 05/25/2025 at 06:36 AM ESTSign off status: PendingVisit Status:?CANC (Cancelled) * Provider: Justino York DPM, MS Date: 1 07/26/2023 Generated for Printing/Faxing/eTransmitting on:?05/25/2025 06:36 AM EST
--- OUTSIDE RECORDS SUMMARY | 2025-05-25 06:37 | XMS_ITS | Clinical Summary ---
Author Organization [facility] Address [address], [address] [place] [address] Care Team Providers Care Stove Cleaner Name Role Phone Unavailable Primary Care Provider Unavailabl e Allergies No known active allergies Medications MedicationSigDispense QuantityRefillsLast FilledStart DateEnd DateStatus buPROPion (WELLBUTRIN) 100 MG tablet Take 2 tablets by mouth dailyActive levocetirizine (XYZAL) 5 MG tablet Take 1 tablet by mouth nightlyActive lisinopril (PRINIVIL;ZESTRIL) 20 MG tablet Take 1 tablet by mouth dailyActive LORazepam (ATIVAN) 1 MG tablet Take 1 tablet by mouth nightly. Max Daily Amount: 1 mgActive meloxicam (MOBIC) 15 MG tablet Take 1 tablet by mouth dailyActive pantoprazole (PROTONIX) 40 MG tablet Take 1 tablet by mouth dailyActive ibuprofen (ADVIL;MOTRIN) 800 MG tablet Take 1 tablet by mouth every 8 hours as needed for Pain 30 tablet 5Active Social History Tobacco UseTypesPacks/DayYears UsedDateSmoking Tobacco: Never AssessedAUDIT-C AnswerDate RecordedQ1: How often do you have a drink containing alcohol?Never 11/15/2024Q2: How many drinks containing alcohol do you have on a typical day when you are drinking?Patient does not drink11/15/2024Q3: How often do you have six or more drinks on one occasion?Never11/15/2024Sex and Gender Information ValueDate RecordedSex Assigned at BirthNot on fileLegal GjlKiem65/01/2022 3:22 PM EDTGender IdentityNot on fileSexual OrientationNot on file Last Filed Vital Signs Vital SignReadingTime TakenCommentsBlood Ecrppgai379/8806 8:27 PM EDT Vhvgv9317/10/2025 8:27 PM CNAHvrfrjcodyy72.2 ??C (99 ??F)11/15/2024 8:27 PM EDT Respiratory Nebr322511/15/2024 9:39 PM EDTOxygen Aahpjwfrna86%11/15/2024 8:27 PM EDTInhaled Oxygen Concentration--Mlqejr354.3 kg (230 lb)11/15/2024 8:28 PM EDT Ducogm016.3 cm (5' 9 )11/15/2024 8:28 PM EDTBody Mass Index33.9711/15/2024 8:28 PM EDT Plan of Treatment Health MaintenanceDue DateLast DoneCommentsDepression Dsbzfq5411/01/1978HIV screen 1981Hepatitis C jvsetw8811/01/1984Hepatitis B vaccine (1 of 3 - 19+ 3-dose series)1985Diabetes tfebdg9611/01/20016965Uhghdg71/27/0310Wcyckzustjv46/27/2012 Colorectal Cancer Xpuxqs9911/02/2011FIT/FOBT: Average risk11/02/2011Fecal-DNA (Cologuard): Average risk11/02/2011Sigmoidoscopy/CT bpxbwjuklaev45/27/2012 Pneumococcal 50+ years Vaccine (1 of 1 - PCV)2016Shingles vaccine (1 of 2) 2016Flu vaccine (#1)5COVID-19 Vaccine (3 - season) 502/10/2020, 1DTaP/Tdap/Td vaccine (2 - Tdap)09/04/2031 09/03/2021Hepatitis A vaccineAged OutNo longer eligible based on patient's age to complete this topicHib vaccineAged OutNo longer eligible based on patient's age to complete this topicMeningococcal (ACWY) vaccineAged OutNo longer eligible based on patient's age to complete this topicMeningococcal B vaccineAged OutNo longer eligible based on patient's age to complete this topicPolio vaccineAged OutNo longer eligible based on patient's age to complete this topic Insurance
--- OUTSIDE RECORDS SUMMARY | 2025-05-25 06:37 | XMS_ITS | Patient Health Record ---
Author Organization [facility] Address [address] [address], [place] [address] Care Team Providers Care Botany Technician Name Role Phone James Grace Primary Care Provider Unavailaris Alf Quintana Unavailable [phone] Allergies No Known Allergies Reason For Referral No Information Medications Medication SIG (Take, Route, Frequency, Duration) Notes Start Date End Date Status Azithromycin 250 MG Tablet TAKE 2 TABLET S by mouth today, THEN take 1 TABLET once a day FOR the next 4 DAYS. Oral; Duration: 5 Days ActivebuPROPion HCl ER (SR) 200 MG Tablet Extended Release 12 HourOral; Duration: 90 DaysActiveLevocetirizine Dihydrochloride 5 MG TabletTAKE 1 TABLET BY MOUTH AT BEDTIME Oral; Duration: 90 DaysActiveLisinopril 20 MG TabletTAKE 1 TABLET (20mg) BY MOUTH DAILY Oral; Duration: 90 DaysActiveBetamethasoneActive LORazepam 1 MG Tablet1 tablet at bedtime as needed Orally Once a dayActive Fluticasone FuroateActiveMeloxicam 15 MG TabletOral; Duration: 90 DaysActive Pantoprazole Sodium 40 MG Tablet Delayed ReleaseTAKE 1 TABLET BY MOUTH TWICE DAILY. Oral; Duration: 90 DaysActive Social History Section Notes: Non smoker. Social alcohol use. Encounters Encounter Location Date Provider Diagnosis [facility] [address] [address], [place] [address] 11/24/2024 Alf York Sprain of anterior talofibular ligament of left ankle, initial encounter S93.492A Assessments Encounter Date Diagnosis (ICD Code) Assessment Notes Treatment Notes Treatment Clinical Notes Section Notes 11/24/2024 Sprain of anterior t alofibular ligament of left ankle, initial encounter (ICD-10 - S93.492A) Improvement suggests no major issues. Consider anti-inflammatory medication for relief. Physical therapy if no further improvement. - Wrap the ankle with an Silver bandage and rest. - Continue using the pool for therapy. - Apply ice to the ankle. - Be cautious on uneven surfaces. - Consider wearing a brace for additional protection. - Consider anti-inflammatory medication like Meloxicam or topical Voltaren for relief. - Physical therapy recommended if the ankle does not improve. Plan Of Treatment No Information Insurance Providers Payer Name Payer Address Payer Phone Subscriber Number Group Number Insured Name Patient Relationship to Insured Coverage Start Date Coverage End Date [facility] [address] [place] [address] [id number] Jose La - patient is the insured Medical (General) History Medical History History ICD Code High Blood Pressure Surgical History Surgery Date(Month/Year) Left Subtalar Joint Fusion 2022
--- OUTSIDE RECORDS SUMMARY | 2025-05-25 06:38 | XMS_ITS | Patient Health Record ---
Author Organization [facility] [place] Address [address] [place] [address] Care Team Providers Care Hull And Deck Remover Name Role Phone James Grace DO Primary Care Provider Alf Modi [phone] Allergies No Known Allergies Reason For Referral No Information Medications Medication SIG (Take, Route, Frequency, Duration) Notes Start Date End Date Status Pantoprazole Sodium ActiveSennosides 8.6 MG2 tablets Orally one to two times daily; Duration: 30 daysActivebuPROPion HClActiveLisinoprilActiveOndansetronActive Social History Tobacco Use: Social History Observation Description Date Details (start date - stop date) Never Smoker NA - NA Tobacco Use/Smoking Question Answer Notes Patient is a nonsmoker Problems Problem Type SNOMED Code ICD Code Onset Dates Problem Status W/U Status Risk Notes Problem Pain in left foot (430809068073780) Pain in left foot (M79.672) ActiveconfirmedProblemArthritis of left foot (6110701308168092)Arthritis of left foot (M19.072)ActiveconfirmedProblemTarsal coalition of left foot (47069292374030640)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)ActiveconfirmedProblem Equinus contracture of left ankle (M24.572)Activeconfirmed Plan Of Treatment Pending Test Test Name Order Date XR Foot 3 Views Bilateral 02/18/2024 XR foot ROSE MARIE min 3V 02/19/2024 Insurance Providers Payer Name Payer Address Payer Phone Subscriber Number Group Number Insured Name Patient Relationship to Insured Coverage Start Date Coverage End Date [employer] P[employer] PL[employer] [facility] [address] [place] [address] [id number] [place] Self - patient is the insured 1 Medical (General) History Medical History History ICD Code hypertension Surgical History Surgery Date(Month/Year) tonsillectomy left subtalar joint arthrodesis, gastrocnemius/ soleal lengthening, harvest distal tibial bone graft Dr York01/29/2023Hospitalization History Reason Date(Month/Year) See above
--- OUTSIDE RECORDS SUMMARY | 2025-05-25 06:38 | XMS_ITS | Patient Health Record ---
Demographics Address [facility] [address] [place] [address] Mobile Email Address Preferred Language en Marital Status unmarried Anabaptism Affiliation Unknown Race White Ethnic Group Not or Lati no Author Organization [facility] Address [address] [place] [address] [place] [address] Care Team Providers Care Rail Transit Operator Name Role Phone James Grace Primary Care Provider Unavailabl Artem Grigsby Unavailable [phone] Reason For Referral No Information Medications Medication SIG (Take, Route, Frequency, Duration) Notes Start Date End Date Status Multivitamin Adult - Tablet Orally ActivebuPROPion HCl ER (SR) 200 MG Tablet Extended Release 12 Hour1 tablet Orally Twice a dayActivePantoprazole Sodium 40 MG Tablet Delayed Release1 tablet Orally Once a dayActive Social History Tobacco Use: Social History Observation Description Date Details (start date - stop date) Never Smoker NA - NA Social History Social HistorySocial InfoQuestionAnswerNotestobacco usePatient is a:non smoker Section Notes: non smoker non smoker non smoker Problems Problem Type SNOMED Code ICD Code Onset Dates Problem Status W/U Status Risk Notes Problem Pain in left foot (148999691204138) Pain in left foot (M79.672) ActiveconfirmedProblemStress fracture of metatarsal bone (092618131)Stress fracture, left foot, initial encounter for fracture (M84.375A)Activeconfirmed ProblemStress fracture of left foot (disorder) (88414286567498994)Stress fracture, left foot, subsequent encounter for fracture with routine healing (M84.375D)Activeconfirmed Plan Of Treatment Pending Test Test Name Order Date X ray: Foot, left 01/12/2017 Insurance Providers Payer Name Payer Address Payer Phone Subscriber Number Group Number Insured Name Patient Relationship to Insured Coverage Start Date Coverage End Date [facility] [id number] [place], [place] [id number] Silas La Self - patient is the insured Medical (General) History Medical History History ICD Code gerd depressionhyperlipidemiabarretts esophaguseczemaSurgical History Surgery Date(Month/Year) eye surgery 01/20
--- OUTSIDE RECORDS SUMMARY | 2025-05-25 06:38 | XMS_ITS | Patient Health Record ---
Author Organization [facility] Address [address] [place] [address] Care Team Providers Care Bracelet And Brooch Maker Name Role Phone Tyson Connolly [phone] Reason For Referral No Information Social History Tobacco Use: Social History Observation [...] the past year?Monthly or less (1 point) Plan Of Treatment No Information Insurance Providers Payer Name Payer Address Payer Phone Subscriber Number Group Number Insured Name Patient Relationship to Insured Coverage Start Date Coverage End Date [place] [address] [place] [address] [id number] [place], [place] Self - patient is the insured 5 Medical (General) History Medical History History ICD Code Anxiety: Yes CPAP Machine:: NoDepression: YesHealthcare worker: YesHigh Blood Pressure: Yes Latex Allergy: NoHave you been in close contact with someone who has had MRSA within the last year?: NoHave you ever had or presently have MRSA?: NoHave you been seen by a dentist in the last year?: NoDo you have any dental problems i.e. Broken, loose, or chipped teeth, absess, gum disease?: Yes
[2025-05-25 07:05] LABS: Alanine Aminotransferase 37 U/L (16-63); Albumin Globulin Ratio 1.1; Albumin Level 3.6 g/dL (3.4-5.0); Alkaline Phosphatase 103 U/L (46-116); Anion Gap 14.2; Aspartate Amino Transferase 25 U/L (15-37); Blood Urea Nitrogen 23.0 mg/dL (7.0-18.0); Calcium 8.7 mg/dL (8.5-10.1); Carbon Dioxide 25.2 mmol/L (21.0-32.0); Chloride 105 mmol/L (98-107); Cholesterol 170 mg/dL (<=200); Estimated GFR (African America >60 (>=60 mL/min/1.73m^2); Estimated GFR (Non-African Ame >60 (>=60 mL/min/1.73m^2); Globulin 3.3 g/dL; Glucose 120 mg/dL (74-106); HDL Cholesterol 53 mg/dL (40-60); Potassium 4.4 mmol/L (3.5-5.1); Sodium 140 mmol/L (136-145); Total Protein 6.9 g/dL (6.4-8.2); Triglycerides 124 mg/dL (<=150); VLDL CHOLESTEROL 24.8 mg/dL
[2025-05-25 07:37] LABS: Thyroid Stimulating Hormone 0.460 uIU/mL (0.358-3.740)
== END 2025-05-25 06:35 | disposition home or self-care (01) ==
LOC: LAB 06:34
PROVIDERS: PCP Family Medicine; Visit Provider Family Medicine
DX: E78.5 Hyperlipidemia, unspecified (principal); R73.9 Hyperglycemia, unspecified; Z12.5 Encounter for screening for malignant neoplasm of prostate
CPT/HCPCS: 36415; 80053; 80061; 83036; 84443; G0103